=== PATIENT | male | born 2000 | race Hispanic/Latino ===

== ENCOUNTER 2024-06-08 05:27 | Inpatient (IN) | payer MEDICAID ==
[2024-06-08] VITALS (66 sets, daily range): BP systolic 92–125; BP diastolic 59–88; PULSE 68–104; RESP 5–32; TEMP 98.7–99.1; O2SAT 97–100
[~2024-06-08] VITALS: Ht 177.8 cm; Wt 99.3 kg
[2024-06-08] MEDS: LORazepam 2 MG/ML 1 ML VIAL IVP ONE (05:30)
--- NOTE | 2024-06-08 05:34 | NUR ---
INTUBATION, ET TUBE 8.0, 24 AT THE LIP, ETOMIDATE 20 GIVEN AT 05:32, SONU GIVEN AT 05:33, INTUBATION 05:34
[2024-06-08] MEDS: leveTIRACEtam 500 MG/5 ML SD VIAL IV SCH (06:00)
[2024-06-08] MEDS ORDERED: DEXTROSE 50%-WATER 25 GM/50 ML VIAL IV ONE (06:00)
[2024-06-08] MEDS: LACTATED RINGERS 1000ML 1,000 ML IV ONE (06:01)
[2024-06-08] MEDS: DEXTROSE 50%-WATER 50 ML DISP.SYRIN IV ONE (06:01)
[2024-06-08] MEDS: proPOFol 1000 MG/100 ML 100 ML IV ONE (06:14)
[2024-06-08] MEDS: FENTanyl 1000MCG+NS 100ML 100 ML IV ONE (06:15)
--- NOTE | 2024-06-08 06:15 | ERN ---
General Chief Complaint: Seizure Stated Complaint: SEIZURES Time Seen by MD: 05:38 History of Present Illness Initial Comments Mr. Salazar is a very pleasant 23-year-old male with a history of seizure disorder who comes actively seizing. Patient apparently has not been taking his Keppra according to his . Patient did have a seizure at home and was picked up by EMS. Patient was doing well and was postictal but has been responsive. Upon arrival he patient did have another seizure in which he was nonresponsive and did not recover from. Patient was emergently intubated. Patient was loaded with Keppra. Allergies: Coded Allergies: No Known Allergies (Unverified Allergy, Unknown, 06/08/24) Home Meds Reported Medications Levetiracetam (Levetiracetam) 500 Mg Tab.er.24h, 1 TAB PO BID for 30 Days, #60 TAB 0 Refills 06/08/24 Past Medical History Past Medical History: Seizure Past Surgical History: None ROS Dictation ROS is not able to be done given patient's altered mental status Physical Exam Physical Exam Dictation General: Unresponsive patient was foaming at the mouth unable to protect his airway, patient was not follow commands Head/Face: Normocephalic, atraumatic Eyes: PERRL, ENT: Gurgling secretions Neck: Trachea midline Cardiovascular: Tachycardic normal S1-S2 Respiratory: Diminished breath sounds bilaterally Abdomen: Nontender nondistended positive bowel sounds Skin: Warm, dry, normal turgor, no rash MS/Extremity: Pulses equal Neuro: Actively seizing Results Laboratory and Microbiology Lab and Micro Result GLO SANTO CC: Seizures, status epilepticus Comorbidities: seizure disorder, non-compliant with Keppra. I took over care of this patient at 7:00 a.m. I reviewed the CT scan of the head without contrast. Per my independent interpretation there are no brain bleeds or major abnormalities. Patient is currently intubated. He has stable vital signs. The chest x-ray per my independent interpretation shows no cardiomegaly, possibly some congestion in the right upper lobe. ET tube appears to be intact. G-tube in place. Patient is currently on propofol drip. He received fentanyl. You received D50 and lorazepam. He received 1 g of Keppra. Labs (interpreted by me): Patient has a leukocytosis [id number] with a left shift. Likely reactive. Rest of the CBC is unremarkable. Chemistry panel shows a bicarb of 12 otherwise unremarkable. Previous ED provider consulted neurology (Dr Austin). Consultation: ICU provider for consultation & Hospitalist (Dr Mendoza) for admisison. ED Course Intubation Intubation : Intubation Method: orotracheal Tube Size (cm): 8.0 Medications: Succinylcholine Breath Sounds after Intubation: equal Intubation Complications: no complications Post Intubation Xray: Yes Critical Care Note Critical Time: 60 minutes DX & DISP Disposition: Inpatient (ICU) Departure Impression: Primary Impression: Status epilepticus Critical Time: 30 minutes (Critical Care Procedure NoteAuthorized and Performed by: meTotal critical care time: Approximately 36 minutesDue to a high probability of clinically significant, life threatening deterioration, the patient required my highest level of preparedness to intervene emergently and I personally spent this critical care time directly and personally managing the patient. This critical care time included obtaining a history; examining the patient; pulse oximetry; ordering and review of studies; arranging urgent treatment with development of a management plan; evaluation of patient's response to treatment; frequent reassessment; and, discussions with other providers.This critical care time was performed to assess and manage the high probability of imminent, life-threatening deterioration that could result in multi-organ failure. It was exclusive of separately billable procedures and treating other patients and teaching time.Please see MDM section and the rest of the note for further information on patient assessment and treatment.) Condition: Critical Referrals: NONE (PCP) DALJIT MCDONNELL MD Jun 08, 2024 06:15 DIMAS SALES DO Jun 08, 2024 07:48
[2024-06-08] MEDS: proPOFol 1000 MG/100 ML IV PRN (06:16)
[2024-06-08] MEDS: FENTanyl 1000MCG+NS 100ML 100 ML IV SCH (06:17)
[2024-06-08] MEDS ORDERED: LEVE500T98 PO (06:22)
[2024-06-08 06:44] LABS: BASOPHILS # (AUTO) 0.11 K/uL (0.00-0.20); BASOPHILS % (AUTO) 0.3 % (0.0-5.0); CREATININE 1.4 mg/dL (0.5-1.3); EOSINOPHILS # (AUTO) 0.02 K/uL (0.00-0.70); EOSINOPHILS % (AUTO) 0.1 % (0.0-8.0); HEMATOCRIT 52.9 % (42-54); LYMPHOCYTES # (AUTO) 3.2 K/uL (1.0-4.8); LYMPHOCYTES % (AUTO) 8.2 % (21.0-51.0); MEAN CORPUSCULAR HEMOGLOBIN 31.8 pg (27.0-33.0); MEAN CORPUSCULAR HGB CONC 31.8 g/dL (32.0-36.0); MEAN CORPUSCULAR VOLUME 100.2 fL (79-99); MONOCYTES # (AUTO) 2.3 K/uL (0.1-1.0); NEUTROPHILS # (AUTO) 32.4 K/uL (1.8-7.7); NEUTROPHILS % (AUTO) 84.4 % (40.0-77.0); PLATELET COUNT (AUTO) 419 K/uL (130-400); POTASSIUM 3.8 mmol/L (3.5-5.1); RED BLOOD CELL COUNT(AUTO) 5.28 MIL/uL (4.50-6.20); RED CELL DISTRIBUTION WIDTH 11.4 % (11.0-15.5)
--- NOTE | 2024-06-08 07:02 | EKG ---
[facility] Test Date: 2024-06-08 Test Time: 05:48:14 Pat Name: DALJIT SANTO Department: ED Room: 208 Gender: M Hrbp: 1088 : 2000 Requested By: DALJIT MCDONNELL Order Number: [id number] Reading MD: Randal Reyes Measurements Intervals [place] Rate: 127 P: 78 WV: 157 QRS: 26 QRSD: 90 T: 92 QT: 291 QTc: 424 Interpretive Statements Sinus tachycardia Repol abnrm suggests ischemia, lateral leads Borderline ST elevation, anterior leads Compared to ECG 06/08/2024 05:45:12 ST (T wave) deviation now present Possible ischemia still present Electronically Signed On 06-08-2024 15:15:40 RAG SHREDDER by Randal Reyes Please click the below link to view image of tracing.
--- NOTE | 2024-06-08 07:02 | EKG ---
[facility] Test Date: 2024-06-08 Test Time: 05:45:12 Pat Name: DALJIT SANTO Department: ED Room: 208 Gender: M School Standards Coach: 1088 : 2000 Requested By: DALJIT MCDONNELL Order Number: [id number] Reading MD: Randal Reyes Measurements Intervals [place] Rate: 125 P: 74 HI: 148 QRS: 29 QRSD: 90 T: 76 QT: 288 QTc: 416 Interpretive Statements Sinus tachycardia Repol abnrm suggests ischemia, lateral leads No previous ECG available for comparison Electronically Signed On 06-08-2024 15:15:33 REAL TIME ANALYST by Randal Reyes Please click the below link to view image of tracing.
--- NOTE | 2024-06-08 07:09 | NUR ---
REPORT RECEIVED FROM ELY DAN
[2024-06-08] MEDS ORDERED: rocuRONium bROMide 10MG/1ML 5ML VL IV ONE (07:22)
[2024-06-08 07:55] LABS: WHITE BLOOD COUNT (AUTO) 38.4 K/uL (4.8-10.8)
--- NOTE | 2024-06-08 08:20 | NUR ---
DR GOMEZ CURRENTLY AT BEDSIDE W/PT.
--- NOTE | 2024-06-08 08:24 | HMCIMG ---
Exam: NONCONTRAST CT BRAIN REASON: Seizure . COMPARISON: None. TECHNIQUE: Images are obtained from vertex to the skull base. The exam was performed without IV contrast. FINDINGS: There is normal appearing brain parenchyma. There are no focal mass lesions. There is is no evidence of intracranial hemorrhage or acute stroke. Ventricles and sulci appear normal. Posterior fossa and brainstem structures are unremarkable. Paranasal sinuses and remaining extracranial soft tissues appear normal as well. IMPRESSION: 1. Normal noncontrast CT brain. CT was performed with one or more following dose reduction techniques: automated exposure control, adjustment of the mA and kv according to patient's size, or use of a iterative reconstruction technique.
[2024-06-08] MEDS ORDERED: AZITHROMYCIN 500MG+NS 250ML 250 ML IVPB SCH (08:30)
[2024-06-08] MEDS ORDERED: polyETHYLene GLYCol 3350 17 GM POWD.PACK PO PRN (08:30)
[2024-06-08] MEDS ORDERED: LACTULOSE 20 GM/30 ML UDCUP PO PRN (08:30)
[2024-06-08 08:37] LABS: BAND NEUTROPHILS % (MANUAL) 7 % (0-2); LYMPHOCYTES % (MANUAL) 4 % (22-44); MAN.DIFF COMMENT-IMPRESSION MANUAL DIFFERENTIAL; MONOCYTES % (MANUAL) 9 % (2-9); PLATELET MORPHOLOGY COMMENT SLIGHT INCREASED; REACTIVE LYMPHOCYTES 4 % (0-0); SEGMENTED NEUTROPHILS % 76 % (40-70); TOTAL CELLS COUNTED 100
--- NOTE | 2024-06-08 08:39 | NUR ---
CRITICAL CARE/PULMONARY CONSULT: LOAN GALANP CURRENTLY AT BEDSIDE.
[2024-06-08 08:45] LABS: ABG BASE EXCESS -8.6 mmol/L (-2.0-3.0); ABG HCO3 17.9 mmol/L (21.0-28.0); ABG OXYGEN SATURATION 99.7 % (94.0-98.0); ABG PCO2 40 mmHg (35-48); ABG PH 7.264 (7.350-7.450); CARBON MONOXIDE 0.8 % (0.5-1.5); DEVICE COMMENT RB; HHb 0.3; PO2, ARTERIAL BG 290.3 mmHg (83.0-108.0); VENT MODE, BG AC (ROOM AIR)
--- NOTE | 2024-06-08 08:45 | NUR ---
ABG RESULTS: PER [employer] SALES AND SERVICE MANAGER-METABOLIC ACIDOSIS. OXYGEN ON VENT TO BE REDUCED TO 75% FOR NOW AND NO OTHER CHANGES
--- NOTE | 2024-06-08 08:52 | HMCIMG ---
CHEST 1VW REASON: S/P INTUBATION COMPARISON: None. FINDINGS: There is a right upper lobe infiltrate consistent with pneumonia. Lungs are otherwise clear. Heart size is normal with no vascular congestion. There is an ET tube with tip in good position at midclavicular point, 4 cm above the kalie. There is an NG tube in the stomach. IMPRESSION: 1. Right upper lobe infiltrate consistent with pneumonia. 2. ET and NG tubes in good position.
--- NOTE | 2024-06-08 09:14 | CONS ---
[facility] CONSULTATION NOTE Date Patient Seen: Jun 08, 2024 Time of Visit: 09:04 Supervising Physician: Dr. Ventura Reason for Consultation: [facility] Primary Care Physician: Never seen a PCP Outpatient Specialists: NA Inpatient Consults: Dr. Ventura, PROBLEM LIST: Postictal Acute metabolic encephalopathy secondary to above Acute hypoxic respiratory failure Bilateral upper lobe opacity concerning for aspiration pneumonitis versus community acquired pneumonia Sepsis without septic shock Acute renal failure secondary to ATN from sepsis High anion gap metabolic acidosis Leukocytosis with left shift Hyperglycemia History of seizures, vaping, former cocaine abuse HPI: This is a 23-year-old male with past medical history of seizures, former cocaine abuse, current marijuana use, and vaping who came to the hospital with complaint of seizures. As patient is intubated, information is obtained from patient's in ED 9 plus chart review. According to the , patient had seizure that was started at 1 AM this morning. He then went back to sleep and he had two more episodes of seizures. After the last episode, he became somewhat confused. In ED patient had seizures and was intubated to save his airway. Pertinent findings include WBC of 38, neutrophils of 84%. Bicarb was 12 and gap was 24. Creatinine is 1.4 glucose 180. Some more laboratory studies were sent. Chest xray with bilateral upper lobe opacities. CT head pending. 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 Pertinent positives mentioned above. Otherwise negative. PHYSICAL EXAM: GENERAL:Intubated, sedated HEENT: EOMI, Sclera non icteric, moist mucosa NECK: Supple, no JVD, trachea midline LUNGS: Rales on upper lobes. No wheezing. HEART: Regular rate and rhythm. Normal S1 and S2, without murmurs ABD: Abdomen soft, nontender. Bowel sounds present EXT: No clubbing cyanosis or edema NEURO: Intubated and sedated Vital Signs (last 8hr) Date Time Temp Pulse Resp B/P (MAP) Pulse Ox O2 Delivery O2 Flow Rate FiO2 06/08/24 07:02 97 20 109/68 95 Ventilator+ 70 06/08/24 06:23 103 16 186/108 95 Ventilator+ 70 06/08/24 06:06 79 70 06/08/24 05:49 131 16 95 Ventilator+ 70 LABS: Hematology Labs: Test 06/08/24 05:35 Range/Units White Blood Count 38.4 *H 4.8-10.8 K/uL Red Blood Count 5.28 4.50-6.20 MIL/uL Hemoglobin 16.8 14.0-18.0 g/dL Hematocrit 52.9 42-54 % Mean Corpuscular Volume 100.2 H 79-99 fL Mean Corpuscular Hemoglobin 31.8 27.0-33.0 pg Mean Corpuscular Hemoglobin Concent 31.8 L 32.0-36.0 g/dL Red Cell Distribution Width 11.4 11.0-15.5 % Platelet Count 419 H 130-400 K/uL Mean Platelet Volume 10.0 7.5-10.5 fL Immature Granulocyte % (Auto) 1.0 0-1 % Neutrophils (%) (Auto) 84.4 H 40.0-77.0 % Lymphocytes (%) (Auto) 8.2 L 21.0-51.0 % Monocytes (%) (Auto) 6.0 3.0-13.0 % Eosinophils (%) (Auto) 0.1 0.0-8.0 % Basophils (%) (Auto) 0.3 0.0-5.0 % Neutrophils # (Auto) 32.4 H 1.8-7.7 K/uL Lymphocytes # (Auto) 3.2 1.0-4.8 K/uL Monocytes # (Auto) 2.3 H 0.1-1.0 K/uL Eosinophils # (Auto) 0.02 0.00-0.70 K/uL Basophils # (Auto) 0.11 0.00-0.20 K/uL Absolute Immature Granulocyte (auto 0.40 0-1 K/uL Segmented Neutrophils % 76 H 40-70 % Band Neutrophils % 7 H 0-2 % Lymphocytes % (Manual) 4 L 22-44 % Monocytes % (Manual) 9 2-9 % Nucleated Red Blood Cells 0.0 0.0-0.19 % Differential Comment MANUAL DIFFERENTIAL Reactive Lymphocytes 4 H 0-0 % White Cell Morphology Comment Platelet Morphology Comment SLIGHT INCREASED Red Blood Cell Morphology MACROCYTIC 1+ Chemistry Labs: Test 06/08/24 05:35 Range/Units Sodium Level 141 136-145 mmol/L Potassium Level 3.8 3.5-5.1 mmol/L Chloride Level 105 101-111 mmol/L Carbon Dioxide Level 12 L 21-32 mmol/L Blood Urea Nitrogen 12 7-18 mg/dL Creatinine 1.4 H 0.5-1.3 mg/dL Glomerular Filtration Rate Calc 72 >90 mL/min Random Glucose 180 H 70-105 mg/dL Total Calcium 9.2 8.5-10.1 mg/dL DIAGNOSTICS / RADIOLOGY RESULTS: [ ] PLAN NEURO: Minimize central acting medications as possible. Fall Precautions. Well lighted room through the day and minimize interruptions through the night to prevent acute delirium. Goal of RASS 0 to -2 as tolerated PULMONARY: Supplemental 02 as needed Titrate Fio2 to keep Spo2 > or = 90% DuoNebs and CPT as needed IS hourly while awake for pulmonary hygiene Out of bed to chair as tolerated VAP Bundle Vent/BIPAP Settings: 18/450/8/100% CARDIOVASCULAR: Follow hemodynamics. Titrate vasopressor to keep MAP >65 or systolic blood pressure >95mmHg DRIPS: Fentanyl Propofol LINES: PIV GI & NUTRITION: Continue nutritional support Aspirations precautions Prokinetic agents and laxatives as needed KIDNEYS & ELECTROLYTES: Strict monitoring of intake and output Daily weights Avoid nephrotoxic agents Monitor electrolytes and replace as needed Goal urine output of 30mL/hr or 0.5mL/kg/hr Give 30cc /kg IVF ENDOCRINE: Maintain blood glucose between 100-180 at all times. Insulin sliding scale for blood glucose management Check ketone INFECTIOUS DISEASE: Trend temperature. Jackson-culture if febrile. Micro: UA Blood Antibiotics: Rocephin 06/08 Azithromycin 06/08 HEMATOLOGY & COAGULATION: Monitor H&H. Keep Hgb > 7 Transfuse 1 unit of PRBC for Hgb < 7 Transfuse 1 pack of platelets of platelets < 20, 000 Watch for any signs and symptoms of bleeding SKIN: Pressure ulcer prevention per facility protocol Rehab: PT/OT Prophylaxis: GI: Pepcdi DVT: Lovenox Code Status: Full Resuscitation Disposition: ICU Other: Total patient care time exceeds 35 minutes excluding all procedures. Case was discussed and seen with my supervising physician. The above plan was formulated and agreed upon. BABAR [facility] Jun 08, 2024 09:14
[2024-06-08 09:19] LABS: AMPHET/METH SCREEN,URINE NEGATIVE (NEGATIVE); BARBITURATE SCREEN, URINE NEGATIVE (NEGATIVE); BENZODIAZEPINES SCREEN,URINE NEGATIVE (NEGATIVE); CANNABINOID SCREEN,URINE POSITIVE (NEGATIVE); COCAINE SCREEN,URINE NEGATIVE (NEGATIVE); OPIATE SCREEN,URINE NEGATIVE (NEGATIVE); PHENCYCLIDINE SCREEN,URINE NEGATIVE (NEGATIVE)
[2024-06-08 09:39] LABS: APPEARANCE,URINE CLOUDY (CLEAR); BACTERIA,URINE RARE /HPF (None Seen); BILIRUBIN,URINE NEGATIVE (NEGATIVE); COLOR,URINE LIGHT-YELLOW (YELLOW); GLUCOSE, URINE (UA) >=1000 mg/dL (NEGATIVE); KETONES,URINE 5 mg/dL (NEGATIVE); LEUKOCYTE ESTERASE ,URINE NEGATIVE Leu/uL (NEGATIVE); MUCUS,URINE RARE LPF (None Seen); NITRATE,URINE NEGATIVE (NEGATIVE); OCCULT BLOOD,URINE MODERATE (NEGATIVE); PH,URINE 5.5 (5.0-8.0); PROTEIN,URINE 100 mg/dL (NEGATIVE); SQUAMOUS EPITHELIAL CELL,UR RARE /HPF (0-2); URIC ACID CRYSTALS,URINE RARE /LPF (None Seen); UROBILINOGEN,URINE 0.2 mg/dL (0.2-1.0)
[2024-06-08] MEDS: LACTATED RINGERS 1000ML 2,190 ML IV ONE (09:58)
[2024-06-08 10:01] LABS: SARS-CoV-2, RNA, NAAT NEGATIVE SARS CoV-2 (NEGATIVE)
--- NOTE | 2024-06-08 10:04 | HP ---
[facility]ISTORY [facility] PHYSICAL Date of Service: Jun 08, 2024 Time of Service: 09:54 HISTORY OF PRESENT ILLNESS: 23-year-old male with past medical history of seizures, former cocaine abuse, current marijuana use, and vaping who came to the hospital with complaint of seizures. According to the , patient had 1st seizure in 2020 and next was in 2022, after that he had seizures for every 3 months and was noncompliant with the medications and says he feels medications aggravate seizures. Seizures began again at 1 AM this morning. He then went back to sleep and he had two more episodes of seizures. After the last episode, he became somewhat confused. In ED patient had seizures and was intubated to protect his airway, he is currently on propofol and fentanyl. He was given1 g of Keppra and lorazepam. Pertinent findings include WBC of 38, neutrophils of 84%. Bicarb was 12 and gap was 24. Creatinine is 1.4 glucose 180. Some more laboratory studies were sent. Chest x ray with right upper lobe opacity. CT head with no acute intracranial abnormalities. Toxicology screen positive for marijuana. 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 NEUROLOGICAL: Cranial nerves II-XII grossly intact. Motor is 5/5 in bilateral upper and lower extremities proximal to distal. No sensory deficits. HEENT: Face is symmetric. Pupils are equal and reactive. Extraocular movements are intact. NECK: Supple. No JVD. No thyromegaly. No submental, submandibular, pre- /postauricular, occipital or supraclavicular lymphadenopathy. CHEST: Normal chest expansion. No Telemetry. LUNGS: Absence of any rales, rhonchi or any wheezing. CARDIOVASCULAR: Regular. S1 and S2 normal. No appreciable rubs, murmurs or gallops. ABDOMEN: Soft, nontender, and nondistended. There is no rebound, voluntary guarding, or rigidity. : Deferred. No Dykes. EXTREMITIES: Non-edematous and not cyanotic. No clubbing. Good capillary refill. SKIN: No skin breakdown. Vital Sign (Last 24 Hours) 06/08/24 07:02 Pulse 97 Resp 20 B/P (MAP) 109/68 Pulse Ox 95 O2 Delivery Ventilator+ FiO2 70 LABS: Laboratory: Test 06/08/24 08:57 06/08/24 08:43 06/08/24 05:35 Range/Units Urine Color LIGHT-YELLOW YELLOW Urine Appearance CLOUDY H CLEAR Urine pH 5.5 5.0-8.0 Urine Specific [place] 1.025 1.001-1.031 Urine Protein 100 H NEGATIVE mg/dL Urine Glucose (UA) >=1000 H NEGATIVE mg/dL Urine Ketones 5 H NEGATIVE mg/dL Urine Occult Blood MODERATE H NEGATIVE Urine Nitrate NEGATIVE NEGATIVE Urine Bilirubin NEGATIVE NEGATIVE mg/dL Urine Urobilinogen 0.2 0.2-1.0 mg/dL Urine Leukocyte Esterase NEGATIVE NEGATIVE Jarad/uL Urine RBC 2-5 H 0-1 /HPF Urine WBC 2-5 H 0-1 /HPF Urine Squamous Epithelial Cells RARE 0-2 /HPF Urine Uric Acid Crystals RARE None Seen /LPF Urine Amorphous Crystals (Auto) FEW None Seen /LPF Urine Bacteria RARE None Seen /HPF Whole Blood Ketones Quantitative 0.2 0.0-0.6 mmol/L Lactic Acid Level 3.9 H 0.8-2.5 mmol/L Total Creatine Kinase 303 H 21-232 U/L Procalcitonin 0.43 0.05-0.5 ng/mL Urine Opiates Screen NEGATIVE NEGATIVE Urine Barbiturates Screen NEGATIVE NEGATIVE Urine Phencyclidine Screen NEGATIVE NEGATIVE Urine Amphetamines Screen NEGATIVE NEGATIVE Urine Benzodiazepines Screen NEGATIVE NEGATIVE Urine Cocaine Screen NEGATIVE NEGATIVE Urine Marijuana (THC) Screen POSITIVE H NEGATIVE Blood Gas Specimen Type Arterial Arterial Blood pH 7.264 L 7.350-7.450 Arterial Blood Partial Pressure CO2 40 35-48 mmHg Arterial Blood Partial Pressure O2 290.3 H 83.0-108.0 mmHg Arterial Blood HCO3 17.9 L 21.0-28.0 mmol/L Arterial Blood Oxygen Saturation 99.7 H 94.0-98.0 % Arterial Blood Base Excess -8.6 L -2.0-3.0 mmol/L Hemoglobin (Blood Gas) 16.7 13.5-17.5 g/dL Sodium (Blood Gas) 138 136-145 MMOL/L Bedside Potassium (Blood Gas) 5.3 H 3.4-4.5 MMOL/L Bedside Chloride (Blood Gas) 107 98-107 MMOL/L Bedside Glucose (Blood Gas) 92 65-95 MG/DL Bedside Ionized Calcium (Blood Gas) 1.21 1.15-1.33 MMOL/L Bedside Lactic Acid (Blood Gas) 1.99 H 0.36-0.75 MMOL/L Blood Gas Temperature 37.0 35.5-37.0 CELSIUS Blood Gas Respiration Rate 18.0 min. Blood Gas Vent Mode AC ROOM AIR FiO2 100.0 % Blood Gas Tidal Volume 450 ml Blood Gas PEEP 8 cm H2O Blood Gas Specimen Comment RB White Blood Count 38.4 *H 4.8-10.8 K/uL Red Blood Count 5.28 4.50-6.20 MIL/uL Hemoglobin 16.8 14.0-18.0 g/dL Hematocrit 52.9 42-54 % Mean Corpuscular Volume 100.2 H 79-99 fL Mean Corpuscular Hemoglobin 31.8 27.0-33.0 pg Mean Corpuscular Hemoglobin Concent 31.8 L 32.0-36.0 g/dL Red Cell Distribution Width 11.4 11.0-15.5 % Platelet Count 419 H 130-400 K/uL Mean Platelet Volume 10.0 7.5-10.5 fL Immature Granulocyte % (Auto) 1.0 0-1 % Neutrophils (%) (Auto) 84.4 H 40.0-77.0 % Lymphocytes (%) (Auto) 8.2 L 21.0-51.0 % Monocytes (%) (Auto) 6.0 3.0-13.0 % Eosinophils (%) (Auto) 0.1 0.0-8.0 % Basophils (%) (Auto) 0.3 0.0-5.0 % Neutrophils # (Auto) 32.4 H 1.8-7.7 K/uL Lymphocytes # (Auto) 3.2 1.0-4.8 K/uL Monocytes # (Auto) 2.3 H 0.1-1.0 K/uL Eosinophils # (Auto) 0.02 0.00-0.70 K/uL Basophils # (Auto) 0.11 0.00-0.20 K/uL Absolute Immature Granulocyte (auto 0.40 0-1 K/uL Segmented Neutrophils % 76 H 40-70 % Band Neutrophils % 7 H 0-2 % Lymphocytes % (Manual) 4 L 22-44 % Monocytes % (Manual) 9 2-9 % Nucleated Red Blood Cells 0.0 0.0-0.19 % Differential Comment MANUAL DIFFERENTIAL Reactive Lymphocytes 4 H 0-0 % White Cell Morphology Comment Platelet Morphology Comment SLIGHT INCREASED Red Blood Cell Morphology MACROCYTIC 1+ Sodium Level 141 136-145 mmol/L Potassium Level 3.8 3.5-5.1 mmol/L Chloride Level 105 101-111 mmol/L Carbon Dioxide Level 12 L 21-32 mmol/L Blood Urea Nitrogen 12 7-18 mg/dL Creatinine 1.4 H 0.5-1.3 mg/dL Glomerular Filtration Rate Calc 72 >90 mL/min Random Glucose 180 H 70-105 mg/dL Total Calcium 9.2 8.5-10.1 mg/dL Current Medications Medications (Trade) Dose Ordered Sig/Samantha Route PRN Reason Start Time Stop Time Status Last Admin Dose Admin Acetaminophen (TYLenol 325MG TAB) 650 mg Q6H PRN PO TEMPERATURE GREATER THAN 101.5 06/08/24 08:30 07/08/24 08:29 Albuterol (DUOneb) 1 udvial [id number] IH 06/08/24 12:00 07/08/24 11:59 Azithromycin 250 ml @ 250 mls/hr Q24H IVPB 06/08/24 08:30 06/08/24 08:42 DC Ceftriaxone Sodium (Rocephin 2gm Inj) 2 gm Q24H IVPB 06/08/24 17:00 06/08/24 08:42 DC Enoxaparin Sodium (Lovenox) 40 mg DAILY SQ 06/08/24 17:00 07/08/24 16:59 Famotidine (Pepcid 20mg Vial) 20 mg BID IV 06/08/24 09:00 07/08/24 08:59 Fentanyl Citrate 100 ml @ 2.5 mls/hr PROTOCOL IV 06/08/24 06:30 06/15/24 06:29 06/08/24 06:17 2.5 MLS/HR Insulin Human Regular (humuLIN R 100 UNIT/ML 3ML) INSULIN SLIDING SCAL... Q6H6 SQ 06/08/24 12:00 07/08/24 11:59 Lactulose (Constulose 20gm/ 30ml Udcup) 20 gm BID PRN PO CONSTIPATION 06/08/24 08:30 07/08/24 08:29 Levetiracetam (kepPRA 500 MG/5 ML SD VIAL) 1,000 mg ONCE IV 06/08/24 06:00 06/08/24 08:35 DC 06/08/24 06:00 1,000 MG Levetiracetam 500 mg/Sodium Chloride 100 ml @ 400 mls/hr BID IV 06/08/24 21:00 07/08/24 20:59 Methylprednisolone Sodium Succinate (Solu-medROL 40MG) 40 mg Q8H IVP 06/08/24 09:30 07/08/24 09:29 Ondansetron HCl (zoFRAN 4MG INJ) 4 mg Q6H PRN IV NAUSEA/VOMITING 06/08/24 08:30 07/08/24 08:29 Polyethylene Glycol (MIRalax 3350 17 GM POWD.PACK) 17 gm DAILY PRN PO CONSTIPATION 06/08/24 08:30 07/08/24 08:29 Propofol (DIPRivan 1000MG/ 100ML) 1,000 mg PROTOCOL PRN IV SEDATION 06/08/24 06:30 07/08/24 06:29 06/08/24 08:40 1,000 MG DIAGNOSTICS / RADIOLOGY: [ ] ASSESSMENT: Status epilepticus s/p intubation (06/08/24) Acute hypoxic respiratory failure intubated Right upper lobe opacity concerning for aspiration pneumonitis versus community acquired pneumonia Acute kidney injury Rhabdomyolysis secondary to seizure Anion gap metabolic acidosis, GAP 24 Lactic acidosis, lactic acid 3.9 Leukocytosis with left shift Hyperglycemia History of seizures, vaping, former cocaine abuse PLAN: Status epilepticus s/p intubation (06/08/24) -Continue Keppra 500 mL/hour b.i.d. -Continue mechanical ventilation, wean as able -Seizure precautions -PRN ativan for acute seizure -neuro consult noted pending on recommendations Right upper lobe opacity concerning for aspiration pneumonitis versus community acquired pneumonia High anion gap metabolic acidosis Leukocytosis with left shift Possibly secondary to aspiration during the seizure event -Continue Zosyn -Follow up on cultures -Follow up on procalcitonin Acute renal failure secondary to ATN from sepsis Rhabdomyolysis - Continue fluid resuscitation - LR @ 140 cc/hr - Repeat renal function lab tomorrow - Monitor urine output Hyperglycemia - Start sliding scale insulin - Start hypoglycemia protocol - A1C ordered, will follow up Vaping Cocaine use disorder Marijuana use disorder - Patient will be counselled on importance of abstinence after extubation - Will explain the increased risk of seizures with continued substance abuse Disposition: Pending extubation, improvement in clinical status, neurology recommendations ADVANCED CARE PLANNING 1. Which of the following were discussed? Hospice Care - Yes Therapeutic options - Yes Advance Directives - Yes-patient does not have any advanced directives in place at this time. Other discussions -patient wishes to remain a full code at this time. 2. Discussed with who? Patient 3. Voluntary nature of this service was explained to the patient? Yes 4. Amount of time spent - 16 minutes__ 5. Reviewed by Physician? (if this service was performed by NPP) Yes ONEYDA DALEY MD Jun 08, 2024 10:04 SIDDHARHTA GOMEZ MD Jun 08, 2024 12:55
[2024-06-08 10:05] LABS: INFLUENZA TYPE A Negative For Type A (NEGATIVE); INFLUENZA TYPE B Negative For Type B (NEGATIVE)
--- NOTE | 2024-06-08 10:14 | NUR ---
BED ASSIGNMENT: BED 208 JUST ASSIGNED BY SCOURING MACHINE TENDER Isidra AL RN
[2024-06-08] MEDS: FAMOTIDINE 20MG VIAL IV SCH (10:37)
[2024-06-08] MEDS: Solu-medROL 40MG VIAL IVP SCH (10:37)
[2024-06-08] MEDS: SODIUM BICARB 50MEQ 50ML VIAL IV ONE (10:37)
[2024-06-08] MEDS: ZOSYN 3.375GM +NS 50ML IV ONE (10:42)
[2024-06-08] MEDS: INSULIN humuLIN R 100 UNIT/ML 3ML SQ SCH (12:00)
--- NOTE | 2024-06-08 12:25 | NUR ---
DR. FLOREZ NOTIFIED OF CONSULT
[2024-06-08] MEDS: IpraTROPium/alBUTERol SULFATE 3 ML SOLUTION IH SCH (12:29)
[2024-06-08] MEDS ORDERED: PHARMACY COMMUNICATION MISC SCH (12:30)
[2024-06-08] MEDS: MIDAZOLAM 100MG-0.9% NS 100ML 100 ML IV SCH (12:32)
[2024-06-08] MEDS ORDERED: leveTIRACEtam 500 MG/5 ML SD VIAL IV SCH (16:00)
[2024-06-08] MEDS: leveTIRACEtam 500 MG/5 ML SD V 1,000 MG in 0.9%NACL 100ML 100 ML IV ONE ×2 (16:06→16:17)
--- NOTE | 2024-06-08 16:19 | CONS ---
CONSULTATION NOTE Date of Service: Jun 08, 2024 Reason for Consultation: Evaluation of seizures. Requesting Physician: Hospitalist HISTORY OF PRESENT ILLNESS: This is a very nice 23 yo RH gentleman with a PMH remarkable for epilepsy and MJ abuse who was admitted for an evaluation and management of status epilepticus. The patient is at bedside, she states that in 2020 the patient had GTC sz while asleep. He was not taken to the ED and then he had one more seizure in 2022. There he was dg with epilepsy and was given LVT 500mg po bid. He continue having seizures despite being on LVT and for this reason he stopped taking the medication about 6 months ago. The pt had 3 seizures last night and was taken to the ED. Dr. Myrick the ED physician evaluated the patient and was given LVT 1000mg loading dose. The pt was intubated for airway protection. No seizures since then. MRI and EEG pending. REVIEW OF SYSTEMS CONSTITUTIONAL: Denies fever, chills, or fatigue. HEAD/FACE: No signs of trauma. EENT: Denies eye pain, blurred vision, double vision, or light sensitivity. RESPIRATORY: Denies shortness of breath, cough, wheezing CARDIOVASCULAR: Denies chest pain, palpitation, syncope GASTROINTESTINAL/ABDOMINAL: Denies abdominal pain, constipation, diarrhea, nausea or vomiting GENITOURINARY: Denies dysuria or hematuria. MUSCULOSKELETAL: Denies joint pain, tenderness, or trauma. INTEGUMENTARY: Denies rash or itchiness NEUROLOGICAL/PSYCH: Multiple seizures change in mental status PAST MEDICAL HISTORY: Epilepsy PAST SURGICAL HISTORY: Noncontributory PAST SOCIAL HISTORY: Marijuana abuse FAMILY HISTORY: No family history of stroke or seizures Coded Allergies: No Known Allergies (Unverified Allergy, Unknown, 06/08/24) PHYSICAL EXAM Mental status: Comatose unresponsive not following commands. Sedated. Cranial nerves: CN II: Pupils are reactive but sluggish CN III, IV, : VO present but sluggish CN V: unresposive to noxious stimulation CN VII: Face is symmetric with normal eye closure and smile. CN VII: Unable to evaluate CN IX, X: Positive gag CN XI: Unable to evaluate CN XII: Tongue is midline with normal movements and no atrophy. Motor: Patient is not withdrawing to noxious stimulation in any of the extremities Reflexes: Reflexes are 0 and symmetric at the biceps, triceps, knees, and ankles. Plantar responses none obtainable Sensory: Not withdrawing to any noxious stimulation Coordination: Unable to evaluate the patient has a change in mental status Gait/Stance: Unable to evaluate the patient has a change in mental status Vital Sign (Last 24 Hours) 06/08/24 06/08/24 14:57 15:00 Pulse 82 Resp 14 B/P (MAP) 108/66 (80) Pulse Ox 98 FiO2 65 LABS: Laboratory: Test 06/08/24 12:55 06/08/24 12:53 06/08/24 08:57 06/08/24 08:43 Range/Units Lactic Acid Level 2.9 H 0.8-2.5 mmol/L Whole Blood Glucose 119 H 70-110 MG/DL Urine Color LIGHT-YELLOW YELLOW Urine Appearance CLOUDY H CLEAR Urine pH 5.5 5.0-8.0 Urine Specific [place] 1.025 1.001-1.031 Urine Protein 100 H NEGATIVE mg/dL Urine Glucose (UA) >=1000 H NEGATIVE mg/dL Urine Ketones 5 H NEGATIVE mg/dL Urine Occult Blood MODERATE H NEGATIVE Urine Nitrate NEGATIVE NEGATIVE Urine Bilirubin NEGATIVE NEGATIVE mg/dL Urine Urobilinogen 0.2 0.2-1.0 mg/dL Urine Leukocyte Esterase NEGATIVE NEGATIVE Jarad/uL Urine RBC 2-5 H 0-1 /HPF Urine WBC 2-5 H 0-1 /HPF Urine Squamous Epithelial Cells RARE 0-2 /HPF Urine Uric Acid Crystals RARE None Seen /LPF Urine Amorphous Crystals (Auto) FEW None Seen /LPF Urine Bacteria RARE None Seen /HPF Whole Blood Ketones Quantitative 0.2 0.0-0.6 mmol/L Total Creatine Kinase 303 H 21-232 U/L Procalcitonin 0.43 0.05-0.5 ng/mL Urine Opiates Screen NEGATIVE NEGATIVE Urine Barbiturates Screen NEGATIVE NEGATIVE Urine Phencyclidine Screen NEGATIVE NEGATIVE Urine Amphetamines Screen NEGATIVE NEGATIVE Urine Benzodiazepines Screen NEGATIVE NEGATIVE Urine Cocaine Screen NEGATIVE NEGATIVE Urine Marijuana (THC) Screen POSITIVE H NEGATIVE Blood Gas Specimen Type Arterial Arterial Blood pH 7.264 L 7.350-7.450 Arterial Blood Partial Pressure CO2 40 35-48 mmHg Arterial Blood Partial Pressure O2 290.3 H 83.0-108.0 mmHg Arterial Blood HCO3 17.9 L 21.0-28.0 mmol/L Arterial Blood Oxygen Saturation 99.7 H 94.0-98.0 % Arterial Blood Base Excess -8.6 L -2.0-3.0 mmol/L Hemoglobin (Blood Gas) 16.7 13.5-17.5 g/dL Sodium (Blood Gas) 138 136-145 MMOL/L Bedside Potassium (Blood Gas) 5.3 H 3.4-4.5 MMOL/L Bedside Chloride (Blood Gas) 107 98-107 MMOL/L Bedside Glucose (Blood Gas) 92 65-95 MG/DL Bedside Ionized Calcium (Blood Gas) 1.21 1.15-1.33 MMOL/L Bedside Lactic Acid (Blood Gas) 1.99 H 0.36-0.75 MMOL/L Blood Gas Temperature 37.0 35.5-37.0 CELSIUS Blood Gas Respiration Rate 18.0 min. Blood Gas Vent Mode AC ROOM AIR FiO2 100.0 % Blood Gas Tidal Volume 450 ml Blood Gas PEEP 8 cm H2O Blood Gas Specimen Comment RB Test 06/08/24 08:28 06/08/24 05:35 Range/Units Influenza Type A Antigen Negative For Type A NEGATIVE Influenza Type B Antigen Negative For Type B NEGATIVE SARS-CoV-2, RNA, NAAT NEGATIVE SARS CoV-2 NEGATIVE White Blood Count 38.4 *H 4.8-10.8 K/uL Red Blood Count 5.28 4.50-6.20 MIL/uL Hemoglobin 16.8 14.0-18.0 g/dL Hematocrit 52.9 42-54 % Mean Corpuscular Volume 100.2 H 79-99 fL Mean Corpuscular Hemoglobin 31.8 27.0-33.0 pg Mean Corpuscular Hemoglobin Concent 31.8 L 32.0-36.0 g/dL Red Cell Distribution Width 11.4 11.0-15.5 % Platelet Count 419 H 130-400 K/uL Mean Platelet Volume 10.0 7.5-10.5 fL Immature Granulocyte % (Auto) 1.0 0-1 % Neutrophils (%) (Auto) 84.4 H 40.0-77.0 % Lymphocytes (%) (Auto) 8.2 L 21.0-51.0 % Monocytes (%) (Auto) 6.0 3.0-13.0 % Eosinophils (%) (Auto) 0.1 0.0-8.0 % Basophils (%) (Auto) 0.3 0.0-5.0 % Neutrophils # (Auto) 32.4 H 1.8-7.7 K/uL Lymphocytes # (Auto) 3.2 1.0-4.8 K/uL Monocytes # (Auto) 2.3 H 0.1-1.0 K/uL Eosinophils # (Auto) 0.02 0.00-0.70 K/uL Basophils # (Auto) 0.11 0.00-0.20 K/uL Absolute Immature Granulocyte (auto 0.40 0-1 K/uL Segmented Neutrophils % 76 H 40-70 % Band Neutrophils % 7 H 0-2 % Lymphocytes % (Manual) 4 L 22-44 % Monocytes % (Manual) 9 2-9 % Nucleated Red Blood Cells 0.0 0.0-0.19 % Differential Comment MANUAL DIFFERENTIAL Reactive Lymphocytes 4 H 0-0 % White Cell Morphology Comment Platelet Morphology Comment SLIGHT INCREASED Red Blood Cell Morphology MACROCYTIC 1+ Sodium Level 141 136-145 mmol/L Potassium Level 3.8 3.5-5.1 mmol/L Chloride Level 105 101-111 mmol/L Carbon Dioxide Level 12 L 21-32 mmol/L Blood Urea Nitrogen 12 7-18 mg/dL Creatinine 1.4 H 0.5-1.3 mg/dL Glomerular Filtration Rate Calc 72 >90 mL/min Random Glucose 180 H 70-105 mg/dL Total Calcium 9.2 8.5-10.1 mg/dL DIAGNOSTICS / RADIOLOGY: [ ] ASSESSMENT / PLAN: 1).- Generalized tonic-clonic seizure with status epilepticus - now stable intubated sedated. No seizures since admission. Give a loading dose of levetiracetam 2 g IV x1 now and increase the levetiracetam to a 1000 mg p.o. b.i.d.. Seizure precautions while hospitalized and as an outpatient. Request an MRI of the brain with and without contrast and electroencephalogram. Seizure precautions. No new neurological deficits or complaints since admission. No seizures observed. Thank you for your consultation. AMARJIT MILLER MD Jun 08, 2024 16:19
--- NOTE | 2024-06-08 16:20 | NUR ---
NEUROLOGIST CONSULT DR. FLOREZ IN UNIT FOR CONSULT, RECEIVED ORDERS FOR KEPPRA 2,000MG IV PIGGYBAG NOW AND INCREASE KEPPRA DOSE TO 1,000MG IV BID STARTING TONIGHT. ORDERS ENTERED. KEPPRA 2,000MG IV DOSE ADMINISTERED.
[2024-06-08] MEDS: ENOXAPARIN SODIUM 40 MG/0.4 ML SYRINGE SQ SCH (16:37)
[2024-06-08] MEDS ORDERED: CEFTRIAXONE 2GM VIAL IVPB SCH (17:00)
[2024-06-08] MEDS ORDERED: leveTIRACEtam 500 MG/5 ML SD V 500 MG in 0.9%NACL 100ML 100 ML IV SCH (21:00)
[2024-06-08] MEDS: ZOSYN 3.375GM +NS 50ML IV SCH (21:38)
[2024-06-08] MEDS: leveTIRACEtam 500 MG/5 ML SD V 1,000 MG in 0.9%NACL 100ML 100 ML IV SCH (21:38)
[2024-06-09] VITALS (96 sets, daily range): BP systolic 93–162; BP diastolic 41–87; PULSE 41–75; RESP 13–21; TEMP 98.1–99; O2SAT 98–100
[2024-06-09 04:08] LABS: BASOPHILS # (AUTO) 0.01 K/uL (0.00-0.20); BASOPHILS % (AUTO) 0.1 % (0.0-5.0); HEMATOCRIT 41.6 % (42-54); IMMATURE GRANULOCYTE ABSOLUTE 0.07 K/uL (0-1); LYMPHOCYTES # (AUTO) 0.6 K/uL (1.0-4.8); MEAN CORPUSCULAR HEMOGLOBIN 31.7 pg (27.0-33.0); MEAN CORPUSCULAR HGB CONC 32.7 g/dL (32.0-36.0); MONOCYTES # (AUTO) 0.7 K/uL (0.1-1.0); MONOCYTES % (AUTO) 4.6 % (3.0-13.0); NEUTROPHILS # (AUTO) 13.3 K/uL (1.8-7.7); NEUTROPHILS % (AUTO) 90.8 % (40.0-77.0); PLATELET COUNT (AUTO) 253 K/uL (130-400); RED BLOOD CELL COUNT(AUTO) 4.29 MIL/uL (4.50-6.20); RED CELL DISTRIBUTION WIDTH 11.2 % (11.0-15.5); WHITE BLOOD COUNT (AUTO) 14.6 K/uL (4.8-10.8)
[2024-06-09 04:23] LABS: ABG BASE EXCESS -6.2 mmol/L (-2.0-3.0); ABG HCO3 20.3 mmol/L (21.0-28.0); ABG OXYGEN SATURATION 98.6 % (94.0-98.0); ABG PCO2 44 mmHg (35-48); ABG PH 7.285 (7.350-7.450); CARBON MONOXIDE 0.9 % (0.5-1.5); DEVICE COMMENT RT RAD; HHb 1.4; PO2, ARTERIAL BG 136.3 mmHg (83.0-108.0); VENT MODE, BG AC (ROOM AIR)
[2024-06-09 04:25] LABS: ALBUMIN 3.1 g/dL (3.5-5.0); BILIRUBIN,TOTAL 0.7 mg/dL (0.2-1.0); CREATININE 3.8 mg/dL (0.5-1.3); POTASSIUM 5.2 mmol/L (3.5-5.1); TOTAL PROTEIN, SERUM 6.2 g/dL (6.0-8.3)
[2024-06-09 04:36] LABS: HEMOGLOBIN A1C 4.8 % (4.0-6.0)
[2024-06-09] MEDS ORDERED: LORazepam 2 MG/ML 1 ML VIAL IVP PRN (05:30)
--- NOTE | 2024-06-09 05:35 | NUR ---
BRADYCARDIA NOTIFIED [facility] EMILI HICKS PATIENT BRADYCARDIA 40s HEART RATE. PER [facility] MONITOR PATIENT AND WEAN SEDATION NECESSARY.
--- NOTE | 2024-06-09 07:15 | NUR ---
ASSESSMENT: PT FOUND IN SUPINE POSITION W/HOB SLIGHLTY ELEVATED. PT IS CURRENTLY INTUBATED AND ON SEDATION (PROPOFOL AND FENTANYL DRIPS). PT ALSO ON LIWS VIA NGT. SIGNIFICANT OTHER SITTING CURRENTLY AT BEDSIDE W/PT AND PT ON BEDSIDE MONITORNING EQUIPMENT. CARDIO/PULMONARY: PT CURRENTLY INTUBATED W/A ETT 8.0 AND 24CM AT THE LIP TO THE RIGHT SIDE OF THE MOUTH. VENT SETTINGS TV 450/FIO2 100%/RATE 18/PEEP 8. PT HAS CRACKLES TO ALL LUNG KWAN TO AUSCULTATION DURING EXHALATION. CAP REFILL LESS THAN 3 SECONDS ON CURRENT VENT SETTINGS. PT IS BREATING ABOVE THE RR OF THE VENT ANYWHERE FROM TOTAL 16-24 BPM. PT ON CARDIAC MONITORING DEVICE. 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 S1S2 AUSCULATED APICALLY. PT HAS 2+PULSES TO RADIAL/DORSALIS PEDAL AND POSTERIOR TIBIALIS SITES BILATERALLY. SKIN IS DRY TO TOUCH. NO CYANOSIS TO NAIL BEDS ON HANDS. PT CURRENTLY HAS BILATERAL 18G TO L/R DISTAL FOREARM W/PROPOFOL AT 25MCG/KG/MIN AND FENTANYL 50MCG/HR . NEURO: PT CURRENTLY SEDATED. PUPILS ARE 4MM OU BRISK. HE DOES HAVE SOME MOVEMENT WHEN HE IS PALPATED OR HAS VERBAL STIMULATION. UNABLE TO COMPETE FULL NEURO ASSESSMENT AT THIS TIME. GI/: PT HAS A NGT 16FR TO R NARE TO LIWS AT THIS TIME. PLACEMENT CONFIRMED W/AIR BOLUS. PT ABD SOFT TO PALPATION AND +BS X 4 QUAD. UNABLE COMPLETE GI ASSESSMENT. PT HAS A 16FR F/C TO URETHRA. CLEAR YELLOW URINE IN DRAINAGE BAG. NO MEATAL TEARING. MUSCULOSKELETAL/INTEGUMENTARY: PT HAS SOME MOVEMENT OF EXTREMITIES WHEN STIMULATED(PT SEDATED) AND NO NOTED SKIN BREAKDOWN AT THIS TIME.
[2024-06-09] MEDS: 0.9%NACL 1000ML 1,000 ML IV SCH (10:09)
--- NOTE | 2024-06-09 10:12 | PN ---
[facility] PROGRESS NOTE Date of Service: Jun 09, 2024 Time of Service: 10:07 SUBJECTIVE: 06/09 patient seen at bedside, no acute events overnight. He remains intubated and sedated. He is currently on an FiO2 of 40% with a tidal volume of 450 and a PEEP of 8, saturating at 100%. We will decrease PEEP down to 5 and continue to monitor. According to ventilator settings he may be a good candidate for extubation, we will defer to critical Care for extubation. Patient did have a sedation vacation however he was unmanageable and had to be sedated again, we will repeat tomorrow in an attempt to try to extubate. His creatinine increased from 1.4 up to 3.8, he has not been running any start him on normal saline at 180 cc/hour and continue to monitor urine output. He is likely a little bit dehydrated due to being NPO for prolonged period of time. He has been assessed by Neurology who adjusted his Keppra to a 1000 mg twice daily and they recommended MRI. He will likely get the MRI once he has been extubated. EEG is also pending, we will follow up. Blood cultures are no growth to date, urine culture is still pending. Urine tox positive for marijuana no other substances. REVIEW OF SYSTEMS 12 point ROS negative unless noted in HPI PHYSICAL EXAM GENERAL APPEARANCE: The patient is awake, alert, and oriented, in no acute cardiopulmonary distress. NEUROLOGICAL: Cranial nerves II-XII grossly intact. Motor is 5/5 in bilateral upper and lower extremities proximal to distal. No sensory deficits. HEENT: Face is symmetric. Pupils are equal and reactive. Extraocular movements are intact. NECK: Supple. No JVD. No thyromegaly. No submental, submandibular, pre- /postauricular, occipital or supraclavicular lymphadenopathy. CHEST: Normal chest expansion. No Telemetry. LUNGS: Absence of any rales, rhonchi or any wheezing. CARDIOVASCULAR: Regular. S1 and S2 normal. No appreciable rubs, murmurs or gallops. ABDOMEN: Soft, nontender, and nondistended. There is no rebound, voluntary guarding, or rigidity. : Deferred. No Dykes. EXTREMITIES: Non-edematous and not cyanotic. No clubbing. Good capillary refill. SKIN: No skin breakdown. Vital Signs (last 8hr) Date Time Temp Pulse Resp B/P (MAP) Pulse Ox O2 Delivery O2 Flow Rate FiO2 06/09/24 09:03 61 40 06/09/24 06:23 53 18 06/09/24 06:22 51 40 06/09/24 06:18 47 16 136/79 (98) 100 06/09/24 06:04 51 15 120/55 (76) 100 06/09/24 05:48 49 21 131/58 (82) 100 06/09/24 05:46 47 18 131/76 (94) 100 06/09/24 05:22 47 15 100 06/09/24 05:19 46 17 110/61 (77) 100 06/09/24 05:04 50 16 102/47 (65) 100 06/09/24 04:49 41 16 107/50 (69) 99 06/09/24 04:32 55 15 94/52 (66) 99 06/09/24 04:25 40 06/09/24 04:02 98.2 58 15 96/41 (59) 100 06/09/24 04:00 40 06/09/24 04:00 99 Ventilator+ 45 06/09/24 03:47 58 16 96/56 (69) 100 06/09/24 03:32 58 15 95/45 (62) 100 06/09/24 03:17 58 16 94/53 (67) 100 06/09/24 03:02 60 16 96/42 (60) 100 06/09/24 02:58 65 45 06/09/24 02:47 60 16 94/49 (64) 100 06/09/24 02:32 64 16 95/57 (70) 100 06/09/24 02:17 61 15 95/60 (72) 100 LABS: Laboratory: Test 06/09/24 05:40 06/09/24 04:21 06/09/24 03:58 06/08/24 12:55 Range/Units Whole Blood Glucose 143 H 70-110 MG/DL Blood Gas Specimen Type Arterial Arterial Blood pH 7.285 L 7.350-7.450 Arterial Blood Partial Pressure CO2 44 35-48 mmHg Arterial Blood Partial Pressure O2 136.3 H 83.0-108.0 mmHg Arterial Blood HCO3 20.3 L 21.0-28.0 mmol/L Arterial Blood Oxygen Saturation 98.6 H 94.0-98.0 % Arterial Blood Base Excess -6.2 L -2.0-3.0 mmol/L Hemoglobin (Blood Gas) 14.3 13.5-17.5 g/dL Sodium (Blood Gas) 138 136-145 MMOL/L Bedside Potassium (Blood Gas) 5.0 H 3.4-4.5 MMOL/L Bedside Chloride (Blood Gas) 106 98-107 MMOL/L Bedside Glucose (Blood Gas) 131 H 65-95 MG/DL Bedside Ionized Calcium (Blood Gas) 1.13 L 1.15-1.33 MMOL/L Bedside Lactic Acid (Blood Gas) 1.59 H 0.36-0.75 MMOL/L Blood Gas Temperature 37.0 35.5-37.0 CELSIUS Blood Gas Respiration Rate 16.0 min. Blood Gas Vent Mode AC ROOM AIR FiO2 45.0 % Blood Gas Tidal Volume 450 ml Blood Gas PEEP 8 cm H2O Blood Gas Specimen Comment RT RAD White Blood Count 14.6 #H 4.8-10.8 K/uL Red Blood Count 4.29 L 4.50-6.20 MIL/uL Hemoglobin 13.6 L 14.0-18.0 g/dL Hematocrit 41.6 #L 42-54 % Mean Corpuscular Volume 97.0 79-99 fL Mean Corpuscular Hemoglobin 31.7 27.0-33.0 pg Mean Corpuscular Hemoglobin Concent 32.7 32.0-36.0 g/dL Red Cell Distribution Width 11.2 11.0-15.5 % Platelet Count 253 # 130-400 K/uL Mean Platelet Volume 9.3 7.5-10.5 fL Immature Granulocyte % (Auto) 0.5 0-1 % Neutrophils (%) (Auto) 90.8 H 40.0-77.0 % Lymphocytes (%) (Auto) 4.0 L 21.0-51.0 % Monocytes (%) (Auto) 4.6 3.0-13.0 % Eosinophils (%) (Auto) 0.0 0.0-8.0 % Basophils (%) (Auto) 0.1 0.0-5.0 % Neutrophils # (Auto) 13.3 H 1.8-7.7 K/uL Lymphocytes # (Auto) 0.6 L 1.0-4.8 K/uL Monocytes # (Auto) 0.7 0.1-1.0 K/uL Eosinophils # (Auto) 0.00 0.00-0.70 K/uL Basophils # (Auto) 0.01 0.00-0.20 K/uL Absolute Immature Granulocyte (auto 0.07 0-1 K/uL Nucleated Red Blood Cells 0.0 0.0-0.19 % Sodium Level 136 136-145 mmol/L Potassium Level 5.2 H 3.5-5.1 mmol/L Chloride Level 104 101-111 mmol/L Carbon Dioxide Level 25 21-32 mmol/L Blood Urea Nitrogen 32 #H 7-18 mg/dL Creatinine 3.8 H 0.5-1.3 mg/dL Glomerular Filtration Rate Calc 22 >90 mL/min Random Glucose 134 H 70-105 mg/dL Hemoglobin A1c 4.8 4.0-6.0 % Estimated Average Glucose (eAG) 91 70-126 mg/dL Total Calcium 8.1 L 8.5-10.1 mg/dL Total Bilirubin 0.7 0.2-1.0 mg/dL Aspartate Amino Transf (AST/SGOT) 34 10-37 U/L Alanine Aminotransferase (ALT/SGPT) 19 12-78 U/L Alkaline Phosphatase 67 50-136 U/L Total Protein 6.2 6.0-8.3 g/dL Albumin 3.1 L 3.5-5.0 g/dL Lactic Acid Level 2.9 H 0.8-2.5 mmol/L Test 06/08/24 08:57 06/08/24 08:28 06/08/24 05:35 Range/Units Urine Color LIGHT-YELLOW YELLOW Urine Appearance CLOUDY H CLEAR Urine pH 5.5 5.0-8.0 Urine Specific [place] 1.025 1.001-1.031 Urine Protein 100 H NEGATIVE mg/dL Urine Glucose (UA) >=1000 H NEGATIVE mg/dL Urine Ketones 5 H NEGATIVE mg/dL Urine Occult Blood MODERATE H NEGATIVE Urine Nitrate NEGATIVE NEGATIVE Urine Bilirubin NEGATIVE NEGATIVE mg/dL Urine Urobilinogen 0.2 0.2-1.0 mg/dL Urine Leukocyte Esterase NEGATIVE NEGATIVE Jarad/uL Urine RBC 2-5 H 0-1 /HPF Urine WBC 2-5 H 0-1 /HPF Urine Squamous Epithelial Cells RARE 0-2 /HPF Urine Uric Acid Crystals RARE None Seen /LPF Urine Amorphous Crystals (Auto) FEW None Seen /LPF Urine Bacteria RARE None Seen /HPF Whole Blood Ketones Quantitative 0.2 0.0-0.6 mmol/L Total Creatine Kinase 303 H 21-232 U/L Procalcitonin 0.43 0.05-0.5 ng/mL Urine Opiates Screen NEGATIVE NEGATIVE Urine Barbiturates Screen NEGATIVE NEGATIVE Urine Phencyclidine Screen NEGATIVE NEGATIVE Urine Amphetamines Screen NEGATIVE NEGATIVE Urine Benzodiazepines Screen NEGATIVE NEGATIVE Urine Cocaine Screen NEGATIVE NEGATIVE Urine Marijuana (THC) Screen POSITIVE H NEGATIVE Influenza Type A Antigen Negative For Type A NEGATIVE Influenza Type B Antigen Negative For Type B NEGATIVE SARS-CoV-2, RNA, NAAT NEGATIVE SARS CoV-2 NEGATIVE Segmented Neutrophils % 76 H 40-70 % Band Neutrophils % 7 H 0-2 % Lymphocytes % (Manual) 4 L 22-44 % Monocytes % (Manual) 9 2-9 % Differential Comment MANUAL DIFFERENTIAL Reactive Lymphocytes 4 H 0-0 % White Cell Morphology Comment Platelet Morphology Comment SLIGHT INCREASED Red Blood Cell Morphology MACROCYTIC 1+ Current Medications Medications (Trade) Dose Ordered Sig/Samantha Route PRN Reason Start Time Stop Time Status Last Admin Dose Admin Acetaminophen (TYLenol 325MG TAB) 650 mg Q6H PRN PO TEMPERATURE GREATER THAN 101.5 06/08/24 08:30 07/08/24 08:29 Albuterol (DUOneb) 1 udvial [id number] IH 06/08/24 12:00 07/08/24 11:59 06/09/24 06:21 1 UDVIAL Azithromycin 250 ml @ 250 mls/hr Q24H IVPB 06/08/24 08:30 06/08/24 08:42 DC Ceftriaxone Sodium (Rocephin 2gm Inj) 2 gm Q24H IVPB 06/08/24 17:00 06/08/24 08:42 DC Enoxaparin Sodium (Lovenox) 40 mg DAILY SQ 06/08/24 17:00 07/08/24 16:59 06/09/24 08:09 40 MG Famotidine (Pepcid 20mg Vial) 20 mg BID IV 06/08/24 09:00 06/09/24 09:57 DC 06/09/24 08:10 20 MG Famotidine (Pepcid 20mg Vial) 20 mg Q48H IV 06/11/24 10:00 07/08/24 08:59 Fentanyl Citrate 100 ml @ 2.5 mls/hr PROTOCOL IV 06/08/24 06:30 06/15/24 06:29 06/09/24 09:48 2.5 MLS/HR Insulin Human Regular (humuLIN R 100 UNIT/ML 3ML) INSULIN SLIDING SCAL... Q6H6 SQ 06/08/24 12:00 07/08/24 11:59 Lactulose (Constulose 20gm/ 30ml Udcup) 20 gm BID PRN PO CONSTIPATION 06/08/24 08:30 07/08/24 08:29 Levetiracetam (kepPRA 500 MG/5 ML SD VIAL) 1,000 mg ONCE IV 06/08/24 06:00 06/08/24 08:35 DC 06/08/24 06:00 1,000 MG Levetiracetam (kepPRA 500 MG/5 ML SD VIAL) 2,000 mg ONCE IV 06/08/24 16:00 06/08/24 15:52 DC Levetiracetam 1000 mg/Sodium Chloride 110 ml @ 400 mls/hr BID IV 06/08/24 21:00 07/08/24 20:59 06/09/24 08:11 400 MLS/HR Levetiracetam 500 mg/Sodium Chloride 100 ml @ 400 mls/hr BID IV 06/08/24 21:00 06/08/24 15:48 DC Lorazepam (AtiVAN) 2 mg Q2H PRN IVP SEIZURE 06/09/24 05:30 06/16/24 05:29 Methylprednisolone Sodium Succinate (Solu-medROL 40MG) 40 mg Q8H IVP 06/08/24 09:30 07/08/24 09:29 06/09/24 08:10 40 MG Midazolam HCl 100 ml @ 0 mls/hr PROTOCOL IV 06/08/24 12:30 07/08/24 12:29 06/08/24 22:12 6 MLS/HR Ondansetron HCl (zoFRAN 4MG INJ) 4 mg Q6H PRN IV NAUSEA/VOMITING 06/08/24 08:30 07/08/24 08:29 Pharmacy Profile Note (Pharmacy Communication) 1 each ONCE MISC 06/08/24 12:30 06/08/24 12:19 DC Piperacillin Sod/ Tazobactam Sod (Zosyn 3.375gm+NS 50ml) 3.375 gm Q12H IV 06/08/24 22:30 06/18/24 22:29 06/08/24 21:38 3.375 GM Polyethylene Glycol (MIRalax 3350 17 GM POWD.PACK) 17 gm DAILY PRN PO CONSTIPATION 06/08/24 08:30 07/08/24 08:29 Propofol (DIPRivan 1000MG/ 100ML) 1,000 mg PROTOCOL PRN IV SEDATION 06/08/24 06:30 07/08/24 06:29 06/09/24 08:10 1,000 MG Sodium Chloride 1,000 ml @ 180 mls/hr Q5H34M IV 06/09/24 10:00 07/09/24 09:59 DIAGNOSTICS / RADIOLOGY: [ ] ASSESSMENT: Status epilepticus s/p intubation (06/08/24) Acute hypoxic respiratory failure intubated Right upper lobe opacity concerning for aspiration pneumonitis versus community acquired pneumonia Pre-renal Acute kidney injury, worsening, POA Rhabdomyolysis secondary to seizure Anion gap metabolic acidosis, resolved Lactic acidosis, lactic acid 3.9, resolved Leukocytosis with left shift, improving Hyperglycemia History of seizures, vaping, former cocaine abuse PLAN: Status epilepticus s/p intubation (06/08/24) -Continue Keppra 1000 mL/hour b.i.d. -Continue mechanical ventilation, wean as able -Seizure precautions -PRN ativan for acute seizure -MRI brain w/wo contrast pending, will follow up -EEG pending, will follow up -neuro consult noted pending on recommendations Right upper lobe opacity concerning for aspiration pneumonitis versus community acquired pneumonia High anion gap metabolic acidosis Leukocytosis with left shift Possibly secondary to aspiration during the seizure event -Vent management per critical care, extubate when able. Vt 450, FiO2 40%, PEEP 5 -Continue Zosyn -Follow up on cultures -Follow up on procalcitonin Acute renal failure secondary to ATN from sepsis Rhabdomyolysis - Continue fluid resuscitation - NS @ 180 cc/hr - Repeat renal function lab tomorrow - Monitor urine output Hyperglycemia - Continue sliding scale insulin - Continue hypoglycemia protocol Vaping Cocaine use disorder Marijuana use disorder - Patient will be counselled on importance of abstinence after extubation - Will explain the increased risk of seizures with continued substance abuse Disposition: Pending extubation, improvement in clinical status, neurology recommendations Greater than 35 minutes ICU time spent in care of this patient SIDDHARTHA GOMEZ MD Jun 09, 2024 10:12
--- NOTE | 2024-06-09 10:15 | HMCIMG ---
CHEST 1VW REASON: Hypoxia, intubated COMPARISON: 06/08/2024 FINDINGS: Right upper lobe infiltrate persists, there is now patchy infiltrate in the right lower lobe as well. Left lung appears clear. Heart size is normal. ET and NG tubes remain in place. IMPRESSION: 1. Increasing infiltrate in the right lung. 2. ET and NG tubes in good position.
--- NOTE | 2024-06-09 11:05 | PN ---
[facility] PROGRESS NOTE Date Patient Seen: Jun 09, 2024 Time of Visit: 10:58 Supervising Physician: Dr. Ventura Primary Care Physician: Never seen a PCP Outpatient Specialists: [facility] Inpatient Consults: Dr. Ventura, PROBLEM LIST: Postictal Acute metabolic encephalopathy secondary to above Acute hypoxic respiratory failure Intubated in ED on 06/08 given lethargy to save airway Bilateral upper lobe opacity concerning for aspiration pneumonitis versus community acquired pneumonia Sepsis without septic shock Acute renal failure secondary to ATN from sepsis High anion gap metabolic acidosis- resolved Leukocytosis with left shift Hyperglycemia History of seizures, vaping, former cocaine abuse INTERVAL HISTORY: 06/09 patient remains intubated on mechanical ventilator with ACVC 16/450/8/45%. His ABG this morning with the pH 7.28 pCO2 44 PO2 of 136 bicarb of 20, O2 sat is 98%. Base excess-6.2. His lactic acid is down to 1.5. His potassium is 5.2 bicarb is 25 up from 12. Creatinine though went up to 3.8 from 1.4. We will give IVF NS bolus this morning and continue with IV maintenance. Repeat BMP levels in the afternoon. we can send sputum culture. Chest x-ray this morning is with manifestation of opacity bilaterally. Continue with Zosyn and start patient on doxycycline. MRSA is negative. Flu and COVID are negative. Otherwise no event overnight. Continue with the anti epileptic drug of choice with Keppra, neurology is following. EEG pending. Continue to wean down sedation as tolerated, now on versed, propofol, and fentanyl. may not be c andidate for SBT REVIEW OF SYSTEMS: 12 point ROS reviewed with patient. Pertinent positives mentioned above. Otherwise negative. PHYSICAL EXAM: GENERAL:Intubated, sedated HEENT: EOMI, Sclera non icteric, moist mucosa NECK: Supple, no JVD, trachea midline LUNGS: Rales on upper lobes. No wheezing. HEART: Regular rate and rhythm. Normal S1 and S2, without murmurs ABD: Abdomen soft, nontender. Bowel sounds present EXT: No clubbing cyanosis or edema NEURO: Intubated and sedated Vital Signs (last 8hr) Date Time Temp Pulse Resp B/P (MAP) Pulse Ox O2 Delivery O2 Flow Rate FiO2 06/09/24 09:03 61 40 06/09/24 06:23 53 18 06/09/24 06:22 51 40 06/09/24 06:18 47 16 136/79 (98) 100 06/09/24 06:04 51 15 120/55 (76) 100 06/09/24 05:48 49 21 131/58 (82) 100 06/09/24 05:46 47 18 131/76 (94) 100 06/09/24 05:22 47 15 100 06/09/24 05:19 46 17 110/61 (77) 100 06/09/24 05:04 50 16 102/47 (65) 100 06/09/24 04:49 41 16 107/50 (69) 99 06/09/24 04:32 55 15 94/52 (66) 99 06/09/24 04:25 40 06/09/24 04:02 98.2 58 15 96/41 (59) 100 06/09/24 04:00 40 06/09/24 04:00 99 Ventilator+ 45 06/09/24 03:47 58 16 96/56 (69) 100 06/09/24 03:32 58 15 95/45 (62) 100 06/09/24 03:17 58 16 94/53 (67) 100 06/09/24 03:02 60 16 96/42 (60) 100 LABS: Hematology Labs: Test 06/09/24 03:58 06/08/24 05:35 Range/Units White Blood Count 14.6 #H 4.8-10.8 K/uL Red Blood Count 4.29 L 4.50-6.20 MIL/uL Hemoglobin 13.6 L 14.0-18.0 g/dL Hematocrit 41.6 #L 42-54 % Mean Corpuscular Volume 97.0 79-99 fL Mean Corpuscular Hemoglobin 31.7 27.0-33.0 pg Mean Corpuscular Hemoglobin Concent 32.7 32.0-36.0 g/dL Red Cell Distribution Width 11.2 11.0-15.5 % Platelet Count 253 # 130-400 K/uL Mean Platelet Volume 9.3 7.5-10.5 fL Immature Granulocyte % (Auto) 0.5 0-1 % Neutrophils (%) (Auto) 90.8 H 40.0-77.0 % Lymphocytes (%) (Auto) 4.0 L 21.0-51.0 % Monocytes (%) (Auto) 4.6 3.0-13.0 % Eosinophils (%) (Auto) 0.0 0.0-8.0 % Basophils (%) (Auto) 0.1 0.0-5.0 % Neutrophils # (Auto) 13.3 H 1.8-7.7 K/uL Lymphocytes # (Auto) 0.6 L 1.0-4.8 K/uL Monocytes # (Auto) 0.7 0.1-1.0 K/uL Eosinophils # (Auto) 0.00 0.00-0.70 K/uL Basophils # (Auto) 0.01 0.00-0.20 K/uL Absolute Immature Granulocyte (auto 0.07 0-1 K/uL Nucleated Red Blood Cells 0.0 0.0-0.19 % Segmented Neutrophils % 76 H 40-70 % Band Neutrophils % 7 H 0-2 % Lymphocytes % (Manual) 4 L 22-44 % Monocytes % (Manual) 9 2-9 % Differential Comment MANUAL DIFFERENTIAL Reactive Lymphocytes 4 H 0-0 % White Cell Morphology Comment Platelet Morphology Comment SLIGHT INCREASED Red Blood Cell Morphology MACROCYTIC 1+ Chemistry Labs: Test 06/09/24 05:40 06/09/24 03:58 06/08/24 12:55 06/08/24 08:57 Range/Units Whole Blood Glucose 143 H 70-110 MG/DL Sodium Level 136 136-145 mmol/L Potassium Level 5.2 H 3.5-5.1 mmol/L Chloride Level 104 101-111 mmol/L Carbon Dioxide Level 25 21-32 mmol/L Blood Urea Nitrogen 32 #H 7-18 mg/dL Creatinine 3.8 H 0.5-1.3 mg/dL Glomerular Filtration Rate Calc 22 >90 mL/min Random Glucose 134 H 70-105 mg/dL Hemoglobin A1c 4.8 4.0-6.0 % Estimated Average Glucose (eAG) 91 70-126 mg/dL Total Calcium 8.1 L 8.5-10.1 mg/dL Total Bilirubin 0.7 0.2-1.0 mg/dL Aspartate Amino Transf (AST/SGOT) 34 10-37 U/L Alanine Aminotransferase (ALT/SGPT) 19 12-78 U/L Alkaline Phosphatase 67 50-136 U/L Total Protein 6.2 6.0-8.3 g/dL Albumin 3.1 L 3.5-5.0 g/dL Lactic Acid Level 2.9 H 0.8-2.5 mmol/L Whole Blood Ketones Quantitative 0.2 0.0-0.6 mmol/L Total Creatine Kinase 303 H 21-232 U/L Procalcitonin 0.43 0.05-0.5 ng/mL DIAGNOSTICS / RADIOLOGY RESULTS: [ ] PLAN NEURO: Minimize central acting medications as possible. Fall Precautions. Well lighted room through the day and minimize interruptions through the night to prevent acute delirium. Goal of RASS 0 to -2 as tolerated PULMONARY: Supplemental 02 as needed Titrate Fio2 to keep Spo2 > or = 90% DuoNebs and CPT as needed IS hourly while awake for pulmonary hygiene Out of bed to chair as tolerated VAP Bundle Vent/BIPAP Settings: 16/450/8/45%. Decrease PEEP to 5. CARDIOVASCULAR: Follow hemodynamics. Titrate vasopressor to keep MAP >65 or systolic blood pressure >95mmHg DRIPS: Fentanyl Propofol Versed NS LINES: PIV GI & NUTRITION: Continue nutritional support Aspirations precautions Prokinetic agents and laxatives as needed KIDNEYS & ELECTROLYTES: Strict monitoring of intake and output Daily weights Avoid nephrotoxic agents Monitor electrolytes and replace as needed Goal urine output of 30mL/hr or 0.5mL/kg/hr Give 30cc /kg IVF ENDOCRINE: Maintain blood glucose between 100-180 at all times. Insulin sliding scale for blood glucose management Check ketone- negative INFECTIOUS DISEASE: Trend temperature. Jackson-culture if febrile. Micro: UA Blood Antibiotics: Rocephin 06/08- changed Azithromycin 06/08-06/08 Doxycycline 06/09 Zosyn 06/09 HEMATOLOGY & COAGULATION: Monitor H&H. Keep Hgb > 7 Transfuse 1 unit of PRBC for Hgb < 7 Transfuse 1 pack of platelets of platelets < 20, 000 Watch for any signs and symptoms of bleeding SKIN: Pressure ulcer prevention per facility protocol Rehab: PT/OT Prophylaxis: GI: Pepcdi DVT: Lovenox Code Status: Full Resuscitation Disposition: ICU Other: Total patient care time exceeds 35 minutes excluding all procedures. Case was discussed and seen with my supervising physician. The above plan was formulated and agreed upon. BABAR HASSAN PATIENT CONSUMER MARKETER Jun 09, 2024 11:04
[2024-06-09] MEDS: DOXYCYCLINE 100MG+NS 250ML 250 ML IV SCH (11:23)
[2024-06-09] MEDS: 0.9%NACL 1000ML 1,461 ML IV ONE (11:24)
[2024-06-09 13:11] LABS: CREATININE 4.4 mg/dL (0.5-1.3); POTASSIUM 4.8 mmol/L (3.5-5.1)
--- NOTE | 2024-06-09 13:14 | NUR ---
ATTEMPTED TO BRING PATIENT DOWN FOR THE MRI. PATIENT IS CURRENTLY ON MULTIPLE DRIPS AND VENTED. EXAM ON HOLD TILL PATIENT CAN BE WEENED OFF THE DRIPS.
--- NOTE | 2024-06-09 14:45 | NUR ---
NEPHROLOGY CONSULT CONSULT CALLED IN TO OFFICE, SPOKE WITH MODESTO.
--- NOTE | 2024-06-09 14:54 | NUR ---
NEPHROLOGY CONSULT ALBERTO SUPERVISOR FUSING ROOM AT BEDSIDE, UPDATED ON PT STATUS.
[2024-06-09] MEDS: ceFEPime HCL 2 GM VIAL IVPB SCH (15:00)
[2024-06-09] MEDS: diazePAM 5 MG TAB PO SCH (15:02)
--- NOTE | 2024-06-09 15:10 | CONS ---
NEPHROLOGY CONSULTATION NOTE Date/Time Patient Seen: Jun 09, 2024 [id number] Reason for Consultation: HISTORY OF PRESENT ILLNESS: This is a 23-year-old male with a past medical history of seizures, former cocaine abuse, current marijuana use, and vaping. He presented to the emergency room with complaints of seizures. According to family patient has been noncompliant with seizure medications. UDS was positive for marijuana. Chest x-ray on admission showed right upper lobe infiltrate consistent with pneumonia. He has been started on Solu-Medrol for pneumonia. CT of head was normal. Zosyn has been discontinued and he has been started on cefepime. Blood cultures has been negative times 24 hours MRSA swab was negative. Leukocytosis is improving He was noted to have elevated BUN/creatinine and hyperkalemia. We have been consulted for renal failure. Renal function continues to worsen Electrolytes are stable. He continues on gentle IV hydration. Continues with good urine output He was seen in the ICU, he continues to be intubated and sedated Family at the bedside Condition is critical and guarded REVIEW OF SYSTEMS: Difficult to obtain given status of the patient who remains intubated mechanically ventilated PAST MEDICAL HISTORY: Seizures PAST SURGICAL HISTORY: Left-sided chest tumor resection PAST SOCIAL HISTORY: Positive for cocaine abuse, marijuana use and vaping, tobacco smoking FAMILY HISTORY: Noncontributory PHYSICAL EXAM: General: acutely ill, sedated, intubated, and mechanically ventilated HEENT: head is atraumatic, pupils equal and reactive, ET tube in place Neck: supple, no masses, no lymphadenopathy, no thyromegaly, no JVD Lungs: decreased breath sounds bilaterally, symmetrical chest movement Cardio: regular rate, S1 and S2 normal, no rub or gallop Abdomen: soft, non tender, no distension, no organomegaly Extremities: trace edema bilateral lower extremities, no cyanosis or clubbing Skin: no rashes or suspicious lesions Neuro: sedated MEDICATIONS: [ ] Current Medications Medications (Trade) Dose Ordered Sig/Samantha Route PRN Reason Start Time Stop Time Status Last Admin Dose Admin Acetaminophen (TYLenol 325MG TAB) 650 mg Q6H PRN PO TEMPERATURE GREATER THAN 101.5 06/08/24 08:30 07/08/24 08:29 Albuterol (DUOneb) 1 udvial [id number] IH 06/08/24 12:00 07/08/24 11:59 06/09/24 11:13 1 UDVIAL Azithromycin 250 ml @ 250 mls/hr Q24H IVPB 06/08/24 08:30 06/08/24 08:42 DC Cefepime HCl (MAXipime 2 gm vial) 2 gm Q24H IVPB 06/09/24 14:30 06/19/24 14:29 Ceftriaxone Sodium (Rocephin 2gm Inj) 2 gm Q24H IVPB 06/08/24 17:00 06/08/24 08:42 DC Dexmedetomidine/ Sodium Chloride (PRECEdex 400MCG/ 100ML-NS) 400 mcg PROTOCOL IV 06/09/24 14:30 07/09/24 14:29 Diazepam (VALium 5 mg TAB) 10 mg Q6H PO 06/09/24 14:30 07/09/24 14:29 Doxycycline Hyclate 250 ml @ 125 mls/hr Q12H IV 06/09/24 11:00 06/16/24 10:59 06/09/24 11:23 125 MLS/HR Enoxaparin Sodium (Lovenox) 40 mg DAILY SQ 06/08/24 17:00 07/08/24 16:59 06/09/24 08:09 40 MG Famotidine (Pepcid 20mg Vial) 20 mg BID IV 06/08/24 09:00 06/09/24 09:57 DC 06/09/24 08:10 20 MG Famotidine (Pepcid 20mg Vial) 20 mg Q48H IV 06/11/24 10:00 07/08/24 08:59 Fentanyl Citrate 100 ml @ 2.5 mls/hr PROTOCOL IV 06/08/24 06:30 06/15/24 06:29 06/09/24 09:48 2.5 MLS/HR Insulin Human Regular (humuLIN R 100 UNIT/ML 3ML) INSULIN SLIDING SCAL... Q6H6 SQ 06/08/24 12:00 07/08/24 11:59 Lactulose (Constulose 20gm/ 30ml Udcup) 20 gm BID PRN PO CONSTIPATION 06/08/24 08:30 07/08/24 08:29 Levetiracetam (kepPRA 500 MG/5 ML SD VIAL) 1,000 mg ONCE IV 06/08/24 06:00 06/08/24 08:35 DC 06/08/24 06:00 1,000 MG Levetiracetam (kepPRA 500 MG/5 ML SD VIAL) 2,000 mg ONCE IV 06/08/24 16:00 06/08/24 15:52 DC Levetiracetam 1000 mg/Sodium Chloride 110 ml @ 400 mls/hr BID IV 06/08/24 21:00 07/08/24 20:59 06/09/24 08:11 400 MLS/HR Levetiracetam 500 mg/Sodium Chloride 100 ml @ 400 mls/hr BID IV 06/08/24 21:00 06/08/24 15:48 DC Lorazepam (AtiVAN) 2 mg Q2H PRN IVP SEIZURE 06/09/24 05:30 06/16/24 05:29 Methylprednisolone Sodium Succinate (Solu-medROL 40MG) 40 mg Q12H IVP 06/09/24 21:30 07/08/24 09:29 Methylprednisolone Sodium Succinate (Solu-medROL 40MG) 40 mg Q8H IVP 06/08/24 09:30 06/09/24 10:56 DC 06/09/24 08:10 40 MG Metronidazole/ Sodium Chloride 100 ml @ 100 mls/hr Q8H6 IVPB 06/09/24 22:00 06/16/24 21:59 Midazolam HCl 100 ml @ 0 mls/hr PROTOCOL IV 06/08/24 12:30 07/08/24 12:29 06/09/24 13:11 6 MLS/HR Ondansetron HCl (zoFRAN 4MG INJ) 4 mg Q6H PRN IV NAUSEA/VOMITING 06/08/24 08:30 07/08/24 08:29 Pharmacy Profile Note (Pharmacy Communication) 1 each ONCE MISC 06/08/24 12:30 06/08/24 12:19 DC Piperacillin Sod/ Tazobactam Sod (Zosyn 3.375gm+NS 50ml) 3.375 gm Q12H IV 06/08/24 22:30 06/09/24 14:27 DC 06/09/24 10:13 3.375 GM Polyethylene Glycol (MIRalax 3350 17 GM POWD.PACK) 17 gm DAILY PRN PO CONSTIPATION 06/08/24 08:30 07/08/24 08:29 Propofol (DIPRivan 1000MG/ 100ML) 1,000 mg PROTOCOL PRN IV SEDATION 06/08/24 06:30 07/08/24 06:29 06/09/24 13:10 1,000 MG Sodium Chloride 1,000 ml @ 180 mls/hr Q5H34M IV 06/09/24 10:00 07/09/24 09:59 06/09/24 10:09 180 MLS/HR Vital Signs (last 8hr) Date Time Temp Pulse Resp B/P (MAP) Pulse Ox O2 Delivery O2 Flow Rate FiO2 06/09/24 14:38 54 40 06/09/24 12:00 99.0 06/09/24 11:46 61 40 06/09/24 11:13 57 18 06/09/24 10:30 40 06/09/24 09:03 61 40 06/09/24 08:00 98.6 06/09/24 08:00 99 Ventilator+ 40 DIAGNOSTICS / RADIOLOGY: REASON: Hypoxia, intubated ORDERING PHYSICIAN: BABAR HASSAN CNP PROCEDURE: CXR1VW - CHEST 1VW CHEST 1VW REASON: Hypoxia, intubated COMPARISON: 06/08/2024 FINDINGS: Right upper lobe infiltrate persists, there is now patchy infiltrate in the right lower lobe as well. Left lung appears clear. Heart size is normal. ET and NG tubes remain in place. IMPRESSION: 1. Increasing infiltrate in the right lung. 2. ET and NG tubes in good position. DICTATED BY: DEMETRIUS ALICEA MD DATE: 06/09/24 1012 REASON: Seizure ORDERING PHYSICIAN: DALJIT MCDONNELL MD PROCEDURE: HEAD WO - CT HEAD/BRAIN W/O CONTRAST Exam: NONCONTRAST CT BRAIN REASON: Seizure . COMPARISON: None. TECHNIQUE: Images are obtained from vertex to the skull base. The exam was performed without IV contrast. FINDINGS: There is normal appearing brain parenchyma. There are no focal mass lesions. There is is no evidence of intracranial hemorrhage or acute stroke. Ventricles and sulci appear normal. Posterior fossa and brainstem structures are unremarkable. Paranasal sinuses and remaining extracranial soft tissues appear normal as well. IMPRESSION: 1. Normal noncontrast CT brain. CT was performed with one or more following dose reduction techniques: automated exposure control, adjustment of the mA and kv according to patient's size, or use of a iterative reconstruction technique. DICTATED BY: DEMETRIUS ALICEA MD DATE: 06/08/2419 REASON: S/P INTUBATION ORDERING PHYSICIAN: DALJIT MCDONNELL MD PROCEDURE: CXR1VW - CHEST 1VW CHEST 1VW REASON: S/P INTUBATION COMPARISON: None. FINDINGS: There is a right upper lobe infiltrate consistent with pneumonia. Lungs are otherwise clear. Heart size is normal with no vascular congestion. There is an ET tube with tip in good position at midclavicular point, 4 cm above the kalie. There is an NG tube in the stomach. IMPRESSION: 1. Right upper lobe infiltrate consistent with pneumonia. 2. ET and NG tubes in good position. DICTATED BY: DEMETRIUS ALICEA MD DATE: 06/08/24843 LABORATORY: [ ] Hematology Labs: Test 06/09/24 03:58 06/08/24 05:35 Range/Units White Blood Count 14.6 #H 4.8-10.8 K/uL Red Blood Count 4.29 L 4.50-6.20 MIL/uL Hemoglobin 13.6 L 14.0-18.0 g/dL Hematocrit 41.6 #L 42-54 % Mean Corpuscular Volume 97.0 79-99 fL Mean Corpuscular Hemoglobin 31.7 27.0-33.0 pg Mean Corpuscular Hemoglobin Concent 32.7 32.0-36.0 g/dL Red Cell Distribution Width 11.2 11.0-15.5 % Platelet Count 253 # 130-400 K/uL Mean Platelet Volume 9.3 7.5-10.5 fL Immature Granulocyte % (Auto) 0.5 0-1 % Neutrophils (%) (Auto) 90.8 H 40.0-77.0 % Lymphocytes (%) (Auto) 4.0 L 21.0-51.0 % Monocytes (%) (Auto) 4.6 3.0-13.0 % Eosinophils (%) (Auto) 0.0 0.0-8.0 % Basophils (%) (Auto) 0.1 0.0-5.0 % Neutrophils # (Auto) 13.3 H 1.8-7.7 K/uL Lymphocytes # (Auto) 0.6 L 1.0-4.8 K/uL Monocytes # (Auto) 0.7 0.1-1.0 K/uL Eosinophils # (Auto) 0.00 0.00-0.70 K/uL Basophils # (Auto) 0.01 0.00-0.20 K/uL Absolute Immature Granulocyte (auto 0.07 0-1 K/uL Nucleated Red Blood Cells 0.0 0.0-0.19 % Segmented Neutrophils % 76 H 40-70 % Band Neutrophils % 7 H 0-2 % Lymphocytes % (Manual) 4 L 22-44 % Monocytes % (Manual) 9 2-9 % Differential Comment MANUAL DIFFERENTIAL Reactive Lymphocytes 4 H 0-0 % White Cell Morphology Comment Platelet Morphology Comment SLIGHT INCREASED Red Blood Cell Morphology MACROCYTIC 1+ Chemistry Labs: Test 06/09/24 12:50 06/09/24 11:27 06/09/24 03:58 06/08/24 12:55 Range/Units Sodium Level 139 136-145 mmol/L Potassium Level 4.8 3.5-5.1 mmol/L Chloride Level 105 101-111 mmol/L Carbon Dioxide Level 23 21-32 mmol/L Blood Urea Nitrogen 40 H 7-18 mg/dL Creatinine 4.4 H 0.5-1.3 mg/dL Glomerular Filtration Rate Calc 18 >90 mL/min Random Glucose 118 H 70-105 mg/dL Total Calcium 7.8 L 8.5-10.1 mg/dL Total Creatine Kinase 178 # 21-232 U/L Whole Blood Glucose 121 H 70-110 MG/DL Hemoglobin A1c 4.8 4.0-6.0 % Estimated Average Glucose (eAG) 91 70-126 mg/dL Total Bilirubin 0.7 0.2-1.0 mg/dL Aspartate Amino Transf (AST/SGOT) 34 10-37 U/L Alanine Aminotransferase (ALT/SGPT) 19 12-78 U/L Alkaline Phosphatase 67 50-136 U/L Total Protein 6.2 6.0-8.3 g/dL Albumin 3.1 L 3.5-5.0 g/dL Lactic Acid Level 2.9 H 0.8-2.5 mmol/L Test 06/08/24 08:57 Range/Units Whole Blood Ketones Quantitative 0.2 0.0-0.6 mmol/L Procalcitonin 0.43 0.05-0.5 ng/mL ASSESSMENT: Hyperkalemia Acute renal failure Postictal Acute metabolic encephalopathy Acute hypoxic respiratory failure Intubated in ED on 06/08 given lethargy to save airway Bilateral upper lobe opacity concerning for aspiration pneumonitis versus community acquired pneumonia Sepsis without septic shock High anion gap metabolic acidosis- resolved Leukocytosis with left shift Hyperglycemia History of seizures, vaping, former cocaine abuse PLAN: Labs, diagnostic, radiologic exams reviewed and interpreted by myself and supervising physician. We have reviewed external records in detail Please renally adjust medications Obtain UA, urine electrolytes, urine creatinine, urine osmolality and complete r enal ultrasound Require close monitoring of renal function and electrolytes Order CBC, CMP, uric acid, TSH and electrolytes in am Continue with renally dosed antibiotics Continue with gentle IV hydration Continue with mechanical ventilation and sedation IV pressors as needed Monitor blood pressure adjust medication doses as needed Avoid hypotensive episodes May use Dilaudid 0.5 mg IV every 6 hours as needed for severe pain Monitor blood sugars Strict intake, output, and daily weight should be monitored Please renally adjust medications Avoid nephrotoxic and nonsteroidal drugs Avoid contrast if possible Will continue to monitor renal function, anemia, electrolytes Treatment plan discussed with patient Questions were answered We have discussed with the other team physicians in detail about the care plan We will continue to monitor the patient closely Thank you for allowing us to participate in the care of this patient Total critical care time spent with patient, nursing staff, critical care team over 35 minutes ATTESTATION BY PHYSICIAN I have seen and examined the patient. I reviewed the documentation, medical decision making, and treatment plan as noted by the mid-level provider above. I agree with the findings and plan of care. ASHWINI BANDA MD, [facility] Jun 09, 2024 15:10
[2024-06-09] MEDS ORDERED: RENAL DOSE IV PRN (15:30)
[2024-06-09 15:48] LABS: CREATININE,URINE RANDOM 73.15 mg/dL (30-135)
--- NOTE | 2024-06-09 16:56 | HMCIMG ---
Exam: Renal and bladder sonogram Reason: Renal failure. FINDINGS: Right kidney is 12.4 x 7.2 x 7.1 cm, left 11.0 x 6.2 x 7.0 cm. There is no mass, stone or hydronephrosis. Cortical thickness is preserved however there is increased echogenicity consistent with a component of chronic renal disease. There is a Dykes catheter in a nondistended urinary bladder. IMPRESSION: 1. Echogenic kidneys consistent with chronic renal disease, size and cortical thickness well preserved.
--- NOTE | 2024-06-09 17:32 | NUR ---
DC Plan Lives with . Independently performs ADLs. Denies HH, provider, or DME. States plan is to return home. verbalized understanding of patient not being able to drive due to seizure. DCP to home. Addendum: 06/09/24 at 1733 by RICHMOND NUNO Amended: Links added.
[2024-06-09] MEDS: Solu-medROL 40MG VIAL IVP SCH (20:24)
[2024-06-09] MEDS: metRONIDazole 500MG/100ML BAG 100 ML IVPB SCH (22:15)
[2024-06-10] VITALS (105 sets, daily range): BP systolic 116–179; BP diastolic 52–109; PULSE 46–123; RESP 8–42; TEMP 98.1–100.4; O2SAT 91–100
[2024-06-10 03:41] LABS: ABG BASE EXCESS -8.5 mmol/L (-2.0-3.0); ABG HCO3 18.6 mmol/L (21.0-28.0); ABG OXYGEN SATURATION 96.8 % (94.0-98.0); ABG PCO2 44 mmHg (35-48); ABG PH 7.245 (7.350-7.450); PO2, ARTERIAL BG 103.4 mmHg (83.0-108.0); VENT MODE, BG AC (ROOM AIR)
[2024-06-10 04:35] LABS: BASOPHILS # (AUTO) 0.01 K/uL (0.00-0.20); BASOPHILS % (AUTO) 0.1 % (0.0-5.0); HEMATOCRIT 38.5 % (42-54); IMMATURE GRANULOCYTE ABSOLUTE 0.09 K/uL (0-1); LYMPHOCYTES # (AUTO) 0.4 K/uL (1.0-4.8); LYMPHOCYTES % (AUTO) 2.6 % (21.0-51.0); MEAN CORPUSCULAR HEMOGLOBIN 31.8 pg (27.0-33.0); MEAN CORPUSCULAR HGB CONC 31.7 g/dL (32.0-36.0); MEAN CORPUSCULAR VOLUME 100.3 fL (79-99); MONOCYTES % (AUTO) 6.9 % (3.0-13.0); NEUTROPHILS # (AUTO) 13.1 K/uL (1.8-7.7); NEUTROPHILS % (AUTO) 89.8 % (40.0-77.0); PLATELET COUNT (AUTO) 223 K/uL (130-400); RED BLOOD CELL COUNT(AUTO) 3.84 MIL/uL (4.50-6.20); RED CELL DISTRIBUTION WIDTH 11.1 % (11.0-15.5); WHITE BLOOD COUNT (AUTO) 14.6 K/uL (4.8-10.8)
[2024-06-10 04:56] LABS: ALBUMIN 2.9 g/dL (3.5-5.0); BILIRUBIN,TOTAL 0.7 mg/dL (0.2-1.0); CREATININE 4.3 mg/dL (0.5-1.3); MAGNESIUM 2.4 mg/dL (1.80-2.40); PHOSPHORUS 5.8 mg/dL (2.5-4.9); POTASSIUM 5.5 mmol/L (3.5-5.1); TOTAL PROTEIN, SERUM 6.1 g/dL (6.0-8.3)
--- NOTE | 2024-06-10 04:56 | NUR ---
G NOTIFIED OCTAVIO MOCK REGARDING ABG.
[2024-06-10] MEDS: ALBUTEROL 0.083% 2.5 MG/3 ML INH IH ONE (05:27)
[2024-06-10] MEDS: SODIUM BICARB 50MEQ 50ML VIAL IV ONE (06:08)
--- NOTE | 2024-06-10 07:05 | NUR ---
UPON ASSESSMENT OF PT, PT AWAKE, NOT FOLLOWING COMMANDS, TRYING TO GET OUT OF BED, TRYING TO PULL ET TUBE OUT. PT PULLING AND REMOVED RIGHT AND LEFT HAND IV'S. . SPOUSE AT BEDSIDE AND AWARE OF PT AGITATION. PT TRIED TO BE REORIENTED AND CALMED DOWN BY STAFF AND SPOUSE. PT CONTINUED TO BE SEVERELY AGITATED.LILIAN HASSAN SUPERVISOR OF OPERATIONS MADE AWARE OF PT SEVERELY AGITATED AND CONDITION. PER MO SUPERVISOR OF OPERATIONS GIVE 1 DOSE OF GEODON 10MG IM, RESTART PT ON PROPOFOL DRIP AND PLACE PT ON SOFT RESTRAINTS. SPOUSE MADE AWARE OF THE REASONING FOR RESTRAINTS AND ALL OTHER ORDERS AND AGREED TO PLAN OF CARE. ALL QUESTIONS WERE ANSWERED.
--- NOTE | 2024-06-10 07:20 | NUR ---
lisa ramirez made aware of all labs
[2024-06-10] MEDS: HALOPERIDOL INJ 5 MG/ML VIAL ONE (08:22)
[2024-06-10] MEDS: ZIPRASIDONE MESYLATE 20 MG/VIAL IM ONE (08:22)
[2024-06-10] MEDS: THIAMINE HCL 100 MG/ML 2ML VIAL IVP SCH (08:28)
[2024-06-10] MEDS: ceFEPime HCL 1 GM VIAL IVPB SCH (08:31)
[2024-06-10] MEDS ORDERED: ZIPRASIDONE MESYLATE 20 MG/VIAL IM PRN (09:00)
--- NOTE | 2024-06-10 09:07 | HMCIMG ---
PORTABLE CHEST RADIOGRAPH INDICATION: REVERIFICATION OF ET TUBE PLACEMENT. COMPARISON: 06/10/2024 at 7:49 AM FINDINGS: Tip of endotracheal tube located 5.4 cm above the kalie. Tip of NG tube within the stomach. Heart size is normal. The pulmonary vascularity and hollis appear normal. No evidence for consolidation. Suspect small layering right greater than left pleural effusions. No pneumothorax detected. IMPRESSION: Tip of NG tube located 5.4 cm above the kalie. Suspect small layering right greater than left pleural effusions.
--- NOTE | 2024-06-10 09:11 | HMCIMG ---
FRONTAL CHEST RADIOGRAPH INDICATION: et tube placement verification COMPARISON: 06/02/2024 at 4:34 AM FINDINGS/IMPRESSION: monitoring engineer leads overlie the field of view. Tip of endotracheal tube located 5.5 cm above the kalie. 2 cm advancement would be ideal. Remainder of the study is unchanged.
--- NOTE | 2024-06-10 09:26 | PN ---
[facility] PROGRESS NOTE Date Patient Seen: Jun 10, 2024 Time of Visit: 09:22 Supervising Physician: Dr. Ventura Primary Care Physician: Never seen a PCP Outpatient Specialists: [facility] Inpatient Consults: Dr. Ventura, PROBLEM LIST: Postictal Acute metabolic encephalopathy secondary to above Acute hypoxic respiratory failure Intubated in ED on 06/08 given lethargy to save airway Bilateral upper lobe opacity concerning for aspiration pneumonitis versus community acquired pneumonia Sepsis without septic shock Acute renal failure secondary to ATN from sepsis High anion gap metabolic acidosis- resolved Leukocytosis with left shift Hyperglycemia History of seizures, vaping, former cocaine abuse INTERVAL HISTORY: 06/09 patient remains intubated on mechanical ventilator with ACVC 16/450/8/45%. His ABG this morning with the pH 7.28 pCO2 44 PO2 of 136 bicarb of 20, O2 sat is 98%. Base excess-6.2. His lactic acid is down to 1.5. His potassium is 5.2 bicarb is 25 up from 12. Creatinine though went up to 3.8 from 1.4. We will give IVF NS bolus this morning and continue with IV maintenance. Repeat BMP levels in the afternoon. we can send sputum culture. Chest x-ray this morning is with manifestation of opacity bilaterally. Continue with Zosyn and start patient on doxycycline. MRSA is negative. Flu and COVID are negative. Otherwise no event overnight. Continue with the anti epileptic drug of choice with Keppra, neurology is following. EEG pending. Continue to wean down sedation as tolerated, now on versed, propofol, and fentanyl. may not be c andidate for SBT 06/10 patient had episodes of severe agitation this morning after he was given sedation holiday inadvertently from inadequate IV access. We gave him anxiolytic Geodon. At the moment, patient is resting , Vital signs blood pressure 136/76 map is 96. Heart rate is 77 and T-max 99.0. He is on ACVC 16/450/5/40%. ABG this morning with the pH 7.24, pCO2 44, PO2 103 bicarb is 18.6 base excess-8.5. His serum bicarb is 23 potassium is 5.5 and creatinine is down to 4.3 from 4.4. Patient has no anion gap metabolic acidosis. We will start patient on bicarb drip given refractory acidosis. Patient has no diarrhea. He has put out better urine output at 2.5L. Balance positive 5.5 L. continue to monitor I/O very closely. Liver function is normal. Culture negative to date. Continue current antibiotic. Continue with current sedation fentanyl, Versed. Start Precedex if tolerated. SBT when patient is following commands appropriately. REVIEW OF SYSTEMS: 12 point ROS reviewed with patient. Pertinent positives mentioned above. Otherwise negative. PHYSICAL EXAM: GENERAL:Intubated, sedated HEENT: EOMI, Sclera non icteric, moist mucosa NECK: Supple, no JVD, trachea midline LUNGS: Rales on upper lobes. No wheezing. HEART: Regular rate and rhythm. Normal S1 and S2, without murmurs ABD: Abdomen soft, nontender. Bowel sounds present EXT: No clubbing cyanosis or edema NEURO: Intubated and sedated Vital Signs (last 8hr) Date Time Temp Pulse Resp B/P (MAP) Pulse Ox O2 Delivery O2 Flow Rate FiO2 06/10/24 09:14 80 40 06/10/24 08:42 96 Ventilator+ 40 06/10/24 08:37 40 06/10/24 08:32 77 16 136/76 (96) 96 06/10/24 08:30 81 15 96 06/10/24 08:18 77 17 158/69 (98) 96 06/10/24 08:03 79 16 149/70 (96) 96 06/10/24 08:00 84 15 95 06/10/24 07:47 90 16 131/78 (95) 95 06/10/24 07:32 100 14 136/76 (96) 95 06/10/24 07:30 103 16 95 06/10/24 07:17 108 15 137/70 (92) 95 06/10/24 07:03 123 42 163/90 (114) 91 06/10/24 07:00 98.1 06/10/24 07:00 67 90 06/10/24 06:46 47 40 06/10/24 05:27 52 16 06/10/24 05:18 46 16 133/61 (85) 100 06/10/24 05:03 48 16 131/60 (83) 100 06/10/24 04:48 47 16 131/55 (80) 100 06/10/24 04:32 98.4 47 16 129/52 (77) 100 06/10/24 04:00 100 Ventilator+ 40 06/10/24 04:00 40 06/10/24 03:54 56 40 06/10/24 03:18 49 16 125/71 (89) 100 06/10/24 03:06 55 17 140/53 (82) 100 06/10/24 02:09 48 16 142/61 (88) 100 06/10/24 01:49 47 16 134/52 (79) 100 LABS: Hematology Labs: Test 06/10/24 04:25 Range/Units White Blood Count 14.6 H 4.8-10.8 K/uL Red Blood Count 3.84 L 4.50-6.20 MIL/uL Hemoglobin 12.2 L 14.0-18.0 g/dL Hematocrit 38.5 L 42-54 % Mean Corpuscular Volume 100.3 H 79-99 fL Mean Corpuscular Hemoglobin 31.8 27.0-33.0 pg Mean Corpuscular Hemoglobin Concent 31.7 L 32.0-36.0 g/dL Red Cell Distribution Width 11.1 11.0-15.5 % Platelet Count 223 130-400 K/uL Mean Platelet Volume 9.6 7.5-10.5 fL Immature Granulocyte % (Auto) 0.6 0-1 % Neutrophils (%) (Auto) 89.8 H 40.0-77.0 % Lymphocytes (%) (Auto) 2.6 L 21.0-51.0 % Monocytes (%) (Auto) 6.9 3.0-13.0 % Eosinophils (%) (Auto) 0.0 0.0-8.0 % Basophils (%) (Auto) 0.1 0.0-5.0 % Neutrophils # (Auto) 13.1 H 1.8-7.7 K/uL Lymphocytes # (Auto) 0.4 L 1.0-4.8 K/uL Monocytes # (Auto) 1.0 0.1-1.0 K/uL Eosinophils # (Auto) 0.00 0.00-0.70 K/uL Basophils # (Auto) 0.01 0.00-0.20 K/uL Absolute Immature Granulocyte (auto 0.09 0-1 K/uL Nucleated Red Blood Cells 0.0 0.0-0.19 % Chemistry Labs: Test 06/10/24 04:25 06/09/24 17:34 06/09/24 12:50 06/09/24 03:58 Range/Units Sodium Level 137 136-145 mmol/L Potassium Level 5.5 H 3.5-5.1 mmol/L Chloride Level 108 101-111 mmol/L Carbon Dioxide Level 23 21-32 mmol/L Blood Urea Nitrogen 46 H 7-18 mg/dL Creatinine 4.3 H 0.5-1.3 mg/dL Glomerular Filtration Rate Calc 19 >90 mL/min Random Glucose 116 H 70-105 mg/dL Total Calcium 8.0 L 8.5-10.1 mg/dL Phosphorus Level 5.8 H 2.5-4.9 mg/dL Magnesium Level 2.40 1.80-2.40 mg/dL Total Bilirubin 0.7 0.2-1.0 mg/dL Aspartate Amino Transf (AST/SGOT) 25 10-37 U/L Alanine Aminotransferase (ALT/SGPT) 20 12-78 U/L Alkaline Phosphatase 58 50-136 U/L Total Protein 6.1 6.0-8.3 g/dL Albumin 2.9 L 3.5-5.0 g/dL Whole Blood Glucose 129 H 70-110 MG/DL Total Creatine Kinase 178 # 21-232 U/L Hemoglobin A1c 4.8 4.0-6.0 % Estimated Average Glucose (eAG) 91 70-126 mg/dL Test 06/08/24 12:55 Range/Units Lactic Acid Level 2.9 H 0.8-2.5 mmol/L DIAGNOSTICS / RADIOLOGY RESULTS: [ ] PLAN NEURO: Minimize central acting medications as possible. Fall Precautions. Well lighted room through the day and minimize interruptions through the night to prevent acute delirium. Goal of RASS 0 to -2 as tolerated PULMONARY: Supplemental 02 as needed Titrate Fio2 to keep Spo2 > or = 90% DuoNebs and CPT as needed IS hourly while awake for pulmonary hygiene Out of bed to chair as tolerated VAP Bundle Vent/BIPAP Settings: 16/450/8/45%. Decrease PEEP to 5. CARDIOVASCULAR: Follow hemodynamics. Titrate vasopressor to keep MAP >65 or systolic blood pressure >95mmHg DRIPS: Fentanyl Propofol Versed NS LINES: PIV GI & NUTRITION: Continue nutritional support Aspirations precautions Prokinetic agents and laxatives as needed KIDNEYS & ELECTROLYTES: Strict monitoring of intake and output Daily weights Avoid nephrotoxic agents Monitor electrolytes and replace as needed Goal urine output of 30mL/hr or 0.5mL/kg/hr Give 30cc /kg IVF ENDOCRINE: Maintain blood glucose between 100-180 at all times. Insulin sliding scale for blood glucose management Check ketone- negative INFECTIOUS DISEASE: Trend temperature. Jackson-culture if febrile. Micro: UA Blood Antibiotics: Rocephin 06/08- changed Azithromycin 06/08-06/08 Doxycycline 06/09 Zosyn 06/09-06/09 Cefepime 06/09 Flagyl 06/09 HEMATOLOGY & COAGULATION: Monitor H&H. Keep Hgb > 7 Transfuse 1 unit of PRBC for Hgb < 7 Transfuse 1 pack of platelets of platelets < 20, 000 Watch for any signs and symptoms of bleeding SKIN: Pressure ulcer prevention per facility protocol Rehab: PT/OT Prophylaxis: GI: Pepcdi DVT: Lovenox Code Status: Full Resuscitation Disposition: ICU Other: Total patient care time exceeds 35 minutes excluding all procedures. Case was discussed and seen with my supervising physician. The above plan was formulated and agreed upon. BABAR HASSAN [facility] Jun 10, 2024 09:26
--- NOTE | 2024-06-10 09:52 | HMCIMG ---
PORTABLE CHEST RADIOGRAPH INDICATION: intubated COMPARISON: 06/09/2024 FINDINGS/IMPRESSION: nurse monitoring leads overlie the field of view. Stable endotracheal and nasogastric tubes, including tip of endotracheal tube located 5.6 cm above the kalie. Stable heart size and favorable decrease in right lung airspace disease, without pneumothorax.
[2024-06-10] MEDS: SODIUM BICARB 8.4% 50ML SYRING 150 MEQ in DEXTROSE 5%-WATER 1,000 ML IVP SCH (09:59)
--- NOTE | 2024-06-10 10:00 | PN ---
[facility] PROGRESS NOTE Date of Service: Jun 10, 2024 Time of Service: 09:54 SUBJECTIVE: 06/09 patient seen at bedside, no acute events overnight. He remains intubated and sedated. He is currently on an FiO2 of 40% with a tidal volume of 450 and a PEEP of 8, saturating at 100%. We will decrease PEEP down to 5 and continue to monitor. According to ventilator settings he may be a good candidate for extubation, we will defer to critical Care for extubation. Patient did have a sedation vacation however he was unmanageable and had to be sedated again, we will repeat tomorrow in an attempt to try to extubate. His creatinine increased from 1.4 up to 3.8, he has not been running any start him on normal saline at 180 cc/hour and continue to monitor urine output. He is likely a little bit dehydrated due to being NPO for prolonged period of time. He has been assessed by Neurology who adjusted his Keppra to a 1000 mg twice daily and they recommended MRI. He will likely get the MRI once he has been extubated. EEG is also pending, we will follow up. Blood cultures are no growth to date, urine culture is still pending. Urine tox positive for marijuana no other substances. 06/10 patient seen at bedside, no acute events overnight. He remains intubated and sedated. Every time sedation is weaned he becomes agitated and began pulling at all his lines, he is sedated once again. We will defer to critical Care for extubation. Patient showing proteinuria and glucosuria which is not normal for a young male his age. He has no history of diabetes. We will initiate further workup to discover the source of his proteinuria. We will order an JORDANA with reflex, p-ANCA and C ANCA and IgA. We will also order an HIV panel and follow up. Creatinine peaked at 4.4 before trending down to 4.3 today, he has adequate urine output with a proximally 2 L in the last 24 hours. Remaining vitals and labs are relatively unremarkable. He has been started on tube feeds and we will continue until he is extubated. REVIEW OF SYSTEMS 12 point ROS negative unless noted in HPI PHYSICAL EXAM GENERAL APPEARANCE: The patient is awake, alert, and oriented, in no acute cardiopulmonary distress. NEUROLOGICAL: Cranial nerves II-XII grossly intact. Motor is 5/5 in bilateral upper and lower extremities proximal to distal. No sensory deficits. HEENT: Face is symmetric. Pupils are equal and reactive. Extraocular movements are intact. NECK: Supple. No JVD. No thyromegaly. No submental, submandibular, pre- /postauricular, occipital or supraclavicular lymphadenopathy. CHEST: Normal chest expansion. No Telemetry. LUNGS: Absence of any rales, rhonchi or any wheezing. CARDIOVASCULAR: Regular. S1 and S2 normal. No appreciable rubs, murmurs or gallops. ABDOMEN: Soft, nontender, and nondistended. There is no rebound, voluntary guarding, or rigidity. : Deferred. No Dykes. EXTREMITIES: Non-edematous and not cyanotic. No clubbing. Good capillary refill. SKIN: No skin breakdown. Vital Signs (last 8hr) Date Time Temp Pulse Resp B/P (MAP) Pulse Ox O2 Delivery O2 Flow Rate FiO2 06/10/24 09:14 80 40 06/10/24 08:42 96 Ventilator+ 40 06/10/24 08:37 40 06/10/24 08:32 77 16 136/76 (96) 96 06/10/24 08:30 81 15 96 06/10/24 08:18 77 17 158/69 (98) 96 06/10/24 08:03 79 16 149/70 (96) 96 06/10/24 08:00 84 15 95 06/10/24 07:47 90 16 131/78 (95) 95 06/10/24 07:32 100 14 136/76 (96) 95 06/10/24 07:30 103 16 95 06/10/24 07:17 108 15 137/70 (92) 95 06/10/24 07:03 123 42 163/90 (114) 91 06/10/24 07:00 98.1 06/10/24 07:00 67 90 06/10/24 06:46 47 40 06/10/24 05:27 52 16 06/10/24 05:18 46 16 133/61 (85) 100 06/10/24 05:03 48 16 131/60 (83) 100 06/10/24 04:48 47 16 131/55 (80) 100 06/10/24 04:32 98.4 47 16 129/52 (77) 100 06/10/24 04:00 100 Ventilator+ 40 06/10/24 04:00 40 06/10/24 03:54 56 40 06/10/24 03:18 49 16 125/71 (89) 100 06/10/24 03:06 55 17 140/53 (82) 100 06/10/24 02:09 48 16 142/61 (88) 100 LABS: Laboratory: Test 06/10/24 04:25 06/10/24 03:39 06/09/24 17:34 06/09/24 15:30 Range/Units White Blood Count 14.6 H 4.8-10.8 K/uL Red Blood Count 3.84 L 4.50-6.20 MIL/uL Hemoglobin 12.2 L 14.0-18.0 g/dL Hematocrit 38.5 L 42-54 % Mean Corpuscular Volume 100.3 H 79-99 fL Mean Corpuscular Hemoglobin 31.8 27.0-33.0 pg Mean Corpuscular Hemoglobin Concent 31.7 L 32.0-36.0 g/dL Red Cell Distribution Width 11.1 11.0-15.5 % Platelet Count 223 130-400 K/uL Mean Platelet Volume 9.6 7.5-10.5 fL Immature Granulocyte % (Auto) 0.6 0-1 % Neutrophils (%) (Auto) 89.8 H 40.0-77.0 % Lymphocytes (%) (Auto) 2.6 L 21.0-51.0 % Monocytes (%) (Auto) 6.9 3.0-13.0 % Eosinophils (%) (Auto) 0.0 0.0-8.0 % Basophils (%) (Auto) 0.1 0.0-5.0 % Neutrophils # (Auto) 13.1 H 1.8-7.7 K/uL Lymphocytes # (Auto) 0.4 L 1.0-4.8 K/uL Monocytes # (Auto) 1.0 0.1-1.0 K/uL Eosinophils # (Auto) 0.00 0.00-0.70 K/uL Basophils # (Auto) 0.01 0.00-0.20 K/uL Absolute Immature Granulocyte (auto 0.09 0-1 K/uL Nucleated Red Blood Cells 0.0 0.0-0.19 % Sodium Level 137 136-145 mmol/L Potassium Level 5.5 H 3.5-5.1 mmol/L Chloride Level 108 101-111 mmol/L Carbon Dioxide Level 23 21-32 mmol/L Blood Urea Nitrogen 46 H 7-18 mg/dL Creatinine 4.3 H 0.5-1.3 mg/dL Glomerular Filtration Rate Calc 19 >90 mL/min Random Glucose 116 H 70-105 mg/dL Total Calcium 8.0 L 8.5-10.1 mg/dL Phosphorus Level 5.8 H 2.5-4.9 mg/dL Magnesium Level 2.40 1.80-2.40 mg/dL Total Bilirubin 0.7 0.2-1.0 mg/dL Aspartate Amino Transf (AST/SGOT) 25 10-37 U/L Alanine Aminotransferase (ALT/SGPT) 20 12-78 U/L Alkaline Phosphatase 58 50-136 U/L Total Protein 6.1 6.0-8.3 g/dL Albumin 2.9 L 3.5-5.0 g/dL Blood Gas Specimen Type Arterial Arterial Blood pH 7.245 *L 7.350-7.450 Arterial Blood Partial Pressure CO2 44 35-48 mmHg Arterial Blood Partial Pressure O2 103.4 83.0-108.0 mmHg Arterial Blood HCO3 18.6 L 21.0-28.0 mmol/L Arterial Blood Oxygen Saturation 96.8 94.0-98.0 % Arterial Blood Base Excess -8.5 L -2.0-3.0 mmol/L Blood Gas Temperature 37.0 35.5-37.0 CELSIUS Blood Gas Respiration Rate 16.0 min. Blood Gas Vent Mode AC ROOM AIR FiO2 40.0 % Blood Gas Tidal Volume 450 ml Blood Gas PEEP 5 cm H2O Blood Gas Specimen Comment LB,RN BETTY Whole Blood Glucose 129 H 70-110 MG/DL Urine Osmolality 281 50-1200 mOsm/kg Urine Random Creatinine 73.15 30-135 mg/dL Urine Random Sodium 36 L 40-220 mmol/l Urine Random Potassium 24 L 25-125 mmol/L Urine Random Chloride 32 L 110-250 mmol/L Test 06/09/24 12:50 06/09/24 04:21 06/09/24 03:58 06/08/24 12:55 Range/Units Total Creatine Kinase 178 # 21-232 U/L Hemoglobin (Blood Gas) 14.3 13.5-17.5 g/dL Sodium (Blood Gas) 138 136-145 MMOL/L Bedside Potassium (Blood Gas) 5.0 H 3.4-4.5 MMOL/L Bedside Chloride (Blood Gas) 106 98-107 MMOL/L Bedside Glucose (Blood Gas) 131 H 65-95 MG/DL Bedside Ionized Calcium (Blood Gas) 1.13 L 1.15-1.33 MMOL/L Bedside Lactic Acid (Blood Gas) 1.59 H 0.36-0.75 MMOL/L Hemoglobin A1c 4.8 4.0-6.0 % Estimated Average Glucose (eAG) 91 70-126 mg/dL Lactic Acid Level 2.9 H 0.8-2.5 mmol/L Current Medications Medications (Trade) Dose Ordered Sig/Samantha Route PRN Reason Start Time Stop Time Status Last Admin Dose Admin Acetaminophen (TYLenol 325MG TAB) 650 mg Q6H PRN PO TEMPERATURE GREATER THAN 101.5 06/08/24 08:30 07/08/24 08:29 Albuterol (DUOneb) 1 udvial [id number] IH 06/08/24 12:00 07/08/24 11:59 06/09/24 23:24 1 UDVIAL Azithromycin 250 ml @ 250 mls/hr Q24H IVPB 06/08/24 08:30 06/08/24 08:42 DC Cefepime HCl (MAXipime 1 GM vial) 1 gm DAILY IVPB 06/10/24 09:00 06/20/24 08:59 06/10/24 08:31 1 GM Cefepime HCl (MAXipime 2 gm vial) 2 gm Q24H IVPB 06/09/24 14:30 06/09/24 18:00 DC 06/09/24 15:00 2 GM Ceftriaxone Sodium (Rocephin 2gm Inj) 2 gm Q24H IVPB 06/08/24 17:00 06/08/24 08:42 DC Dexmedetomidine/ Sodium Chloride (PRECEdex 400MCG/ 100ML-NS) 400 mcg PROTOCOL IV 06/09/24 14:30 07/09/24 14:29 Diazepam (VALium 5 mg TAB) 10 mg Q6H PO 06/09/24 14:30 07/09/24 14:29 06/10/24 08:28 10 MG Doxycycline Hyclate 250 ml @ 125 mls/hr Q12H IV 06/09/24 11:00 06/16/24 10:59 06/09/24 22:15 125 MLS/HR Enoxaparin Sodium (Lovenox) 40 mg DAILY SQ 06/08/24 17:00 07/08/24 16:59 06/10/24 08:32 40 MG Famotidine (Pepcid 20mg Vial) 20 mg BID IV 06/08/24 09:00 06/09/24 09:57 DC 06/09/24 08:10 20 MG Famotidine (Pepcid 20mg Vial) 20 mg Q48H IV 06/11/24 10:00 07/08/24 08:59 Fentanyl Citrate 100 ml @ 2.5 mls/hr PROTOCOL IV 06/08/24 06:30 06/15/24 06:29 06/10/24 09:20 2.5 MLS/HR Insulin Human Regular (humuLIN R 100 UNIT/ML 3ML) INSULIN SLIDING SCAL... Q6H6 SQ 06/08/24 12:00 07/08/24 11:59 Lactulose (Constulose 20gm/ 30ml Udcup) 20 gm BID PRN PO CONSTIPATION 06/08/24 08:30 07/08/24 08:29 Levetiracetam (kepPRA 500 MG/5 ML SD VIAL) 1,000 mg ONCE IV 06/08/24 06:00 06/08/24 08:35 DC 06/08/24 06:00 1,000 MG Levetiracetam (kepPRA 500 MG/5 ML SD VIAL) 2,000 mg ONCE IV 06/08/24 16:00 06/08/24 15:52 DC Levetiracetam 1000 mg/Sodium Chloride 110 ml @ 400 mls/hr BID IV 06/08/24 21:00 07/08/24 20:59 06/10/24 08:31 400 MLS/HR Levetiracetam 500 mg/Sodium Chloride 100 ml @ 400 mls/hr BID IV 06/08/24 21:00 06/08/24 15:48 DC Lorazepam (AtiVAN) 2 mg Q2H PRN IVP SEIZURE 06/09/24 05:30 06/16/24 05:29 Methylprednisolone Sodium Succinate (Solu-medROL 40MG) 40 mg DAILY IVP 06/11/24 09:00 07/08/24 09:29 Methylprednisolone Sodium Succinate (Solu-medROL 40MG) 40 mg Q12H IVP 06/09/24 21:30 06/10/24 08:50 DC 06/10/24 08:28 40 MG Methylprednisolone Sodium Succinate (Solu-medROL 40MG) 40 mg Q8H IVP 06/08/24 09:30 06/09/24 10:56 DC 06/09/24 08:10 40 MG Metronidazole/ Sodium Chloride 100 ml @ 100 mls/hr Q8H6 IVPB 06/09/24 22:00 06/16/24 21:59 06/10/24 05:09 100 MLS/HR Midazolam HCl 100 ml @ 0 mls/hr PROTOCOL IV 06/08/24 12:30 07/08/24 12:29 06/10/24 05:10 10 MLS/HR Ondansetron HCl (zoFRAN 4MG INJ) 4 mg Q6H PRN IV NAUSEA/VOMITING 06/08/24 08:30 07/08/24 08:29 Pharmacy Profile Note (Pharmacy Communication) 1 each ONCE MISC 06/08/24 12:30 06/08/24 12:19 DC Piperacillin Sod/ Tazobactam Sod (Zosyn 3.375gm+NS 50ml) 3.375 gm Q12H IV 06/08/24 22:30 06/09/24 14:27 DC 06/09/24 10:13 3.375 GM Polyethylene Glycol (MIRalax 3350 17 GM POWD.PACK) 17 gm DAILY PRN PO CONSTIPATION 06/08/24 08:30 07/08/24 08:29 Propofol (DIPRivan 1000MG/ 100ML) 1,000 mg PROTOCOL PRN IV SEDATION 06/08/24 06:30 07/08/24 06:29 06/10/24 08:22 1,000 MG Sodium Bicarbonate 150 meq/Dextrose 1,150 ml @ 75 mls/hr [id number] IVP 06/10/24 09:00 07/10/24 08:59 Sodium Chloride 1,000 ml @ 100 mls/hr Q10H IV 06/09/24 10:00 07/09/24 09:59 06/10/24 08:32 180 MLS/HR Thiamine HCl (Vitamin B-1) 100 mg DAILY IVP 06/10/24 09:00 07/10/24 08:59 06/10/24 08:28 100 MG Ziprasidone (Geodon) 10 mg BID PRN IM agitation 06/10/24 09:00 07/10/24 08:59 DIAGNOSTICS / RADIOLOGY: [ ] ASSESSMENT: Status epilepticus s/p intubation (06/08/24) Acute hypoxic respiratory failure intubated Nephrotic range proteinuria Glucosuria Right upper lobe opacity concerning for aspiration pneumonitis versus community acquired pneumonia Pre-renal Acute kidney injury, worsening, POA Rhabdomyolysis secondary to seizure Anion gap metabolic acidosis, resolved Lactic acidosis, lactic acid 3.9, resolved Leukocytosis with left shift, improving Hyperglycemia History of seizures, vaping, former cocaine abuse PLAN: Status epilepticus s/p intubation (06/08/24) -Continue Keppra 1000 mL/hour b.i.d. -Continue mechanical ventilation, wean as able -Seizure precautions -PRN ativan for acute seizure -MRI brain w/wo contrast pending, will follow up -EEG pending, will follow up -neuro consult noted pending on recommendations Right upper lobe opacity concerning for aspiration pneumonitis versus community acquired pneumonia High anion gap metabolic acidosis Leukocytosis with left shift Possibly secondary to aspiration during the seizure event -Vent management per critical care, extubate when able. Vt 450, FiO2 40%, PEEP 5 -Discontinue Zosyn -Start cefepime and doxycycline -Cultures are no growth to date Acute renal failure secondary to ATN from sepsis Proteinuria Glucosuria Rhabdomyolysis - Continue fluid resuscitation - NS @ 180 cc/hr - HIV panel ordered, will follow up - JORDANA, ANCA and IgA panels ordered, will follow up - Repeat renal function lab tomorrow - Monitor urine output - Nephrology consulted, appreciate recommendations Hyperglycemia - Continue sliding scale insulin - Continue hypoglycemia protocol Vaping Cocaine use disorder Marijuana use disorder - Patient will be counselled on importance of abstinence after extubation - Will explain the increased risk of seizures with continued substance abuse Disposition: Pending extubation, improvement in clinical status, nephrology recommendations, nephrology workup Greater than 35 minutes ICU time spent in care of this patient SIDDHARTHA GOMEZ MD Jun 10, 2024 10:00
--- NOTE | 2024-06-10 10:30 | PN ---
PROGRESS NOTE Date of Service: Jun 10, 2024 Time of Service: 10:29 SUBJECTIVE: No seizure has been observed over the past 24 hours. The patient has been hemodynamically stable and afebrile. The patient has been moving all extremities agitated while sedated. Per hospitalist team he has developed proteinuria and will be evaluated for possible HIV. REVIEW OF SYSTEMS CONSTITUTIONAL: Denies fever, chills, or fatigue. HEAD/FACE: No signs of trauma. EENT: Denies eye pain, blurred vision, double vision, or light sensitivity. RESPIRATORY: Denies shortness of breath, cough, wheezing CARDIOVASCULAR: Denies chest pain, palpitation, syncope GASTROINTESTINAL/ABDOMINAL: Denies abdominal pain, constipation, diarrhea, nausea or vomiting GENITOURINARY: Denies dysuria or hematuria. MUSCULOSKELETAL: Denies joint pain, tenderness, or trauma. INTEGUMENTARY: Denies rash or itchiness NEUROLOGICAL/PSYCH: Multiple seizures change in mental status PHYSICAL EXAM Mental status: Comatose unresponsive not following commands. Sedated. Cranial nerves: CN II: Pupils are reactive but sluggish CN III, IV, : VO present but sluggish CN V: unresposive to noxious stimulation CN VII: Face is symmetric with normal eye closure and smile. CN VII: Unable to evaluate CN IX, X: Positive gag CN XI: Unable to evaluate CN XII: Tongue is midline with normal movements and no atrophy. Motor: Patient is not withdrawing to noxious stimulation in any of the extremities Reflexes: Reflexes are 0 and symmetric at the biceps, triceps, knees, and ankles. Plantar responses none obtainable Sensory: Not withdrawing to any noxious stimulation Coordination: Unable to evaluate the patient has a change in mental status Gait/Stance: Unable to evaluate the patient has a change in mental status Vital Signs (last 8hr) Date Time Temp Pulse Resp B/P (MAP) Pulse Ox O2 Delivery O2 Flow Rate FiO2 06/10/24 09:14 80 40 06/10/24 08:42 96 Ventilator+ 40 06/10/24 08:37 40 06/10/24 08:32 77 16 136/76 (96) 96 06/10/24 08:30 81 15 96 06/10/24 08:18 77 17 158/69 (98) 96 06/10/24 08:03 79 16 149/70 (96) 96 06/10/24 08:00 84 15 95 06/10/24 07:47 90 16 131/78 (95) 95 06/10/24 07:32 100 14 136/76 (96) 95 06/10/24 07:30 103 16 95 06/10/24 07:17 108 15 137/70 (92) 95 06/10/24 07:03 123 42 163/90 (114) 91 06/10/24 07:00 98.1 06/10/24 07:00 67 90 06/10/24 06:46 47 40 06/10/24 05:27 52 16 06/10/24 05:18 46 16 133/61 (85) 100 06/10/24 05:03 48 16 131/60 (83) 100 06/10/24 04:48 47 16 131/55 (80) 100 06/10/24 04:32 98.4 47 16 129/52 (77) 100 06/10/24 04:00 100 Ventilator+ 40 06/10/24 04:00 40 06/10/24 03:54 56 40 06/10/24 03:18 49 16 125/71 (89) 100 06/10/24 03:06 55 17 140/53 (82) 100 LABS: Laboratory: Test 06/10/24 04:25 06/10/24 03:39 06/09/24 17:34 06/09/24 15:30 Range/Units White Blood Count 14.6 H 4.8-10.8 K/uL Red Blood Count 3.84 L 4.50-6.20 MIL/uL Hemoglobin 12.2 L 14.0-18.0 g/dL Hematocrit 38.5 L 42-54 % Mean Corpuscular Volume 100.3 H 79-99 fL Mean Corpuscular Hemoglobin 31.8 27.0-33.0 pg Mean Corpuscular Hemoglobin Concent 31.7 L 32.0-36.0 g/dL Red Cell Distribution Width 11.1 11.0-15.5 % Platelet Count 223 130-400 K/uL Mean Platelet Volume 9.6 7.5-10.5 fL Immature Granulocyte % (Auto) 0.6 0-1 % Neutrophils (%) (Auto) 89.8 H 40.0-77.0 % Lymphocytes (%) (Auto) 2.6 L 21.0-51.0 % Monocytes (%) (Auto) 6.9 3.0-13.0 % Eosinophils (%) (Auto) 0.0 0.0-8.0 % Basophils (%) (Auto) 0.1 0.0-5.0 % Neutrophils # (Auto) 13.1 H 1.8-7.7 K/uL Lymphocytes # (Auto) 0.4 L 1.0-4.8 K/uL Monocytes # (Auto) 1.0 0.1-1.0 K/uL Eosinophils # (Auto) 0.00 0.00-0.70 K/uL Basophils # (Auto) 0.01 0.00-0.20 K/uL Absolute Immature Granulocyte (auto 0.09 0-1 K/uL Nucleated Red Blood Cells 0.0 0.0-0.19 % Sodium Level 137 136-145 mmol/L Potassium Level 5.5 H 3.5-5.1 mmol/L Chloride Level 108 101-111 mmol/L Carbon Dioxide Level 23 21-32 mmol/L Blood Urea Nitrogen 46 H 7-18 mg/dL Creatinine 4.3 H 0.5-1.3 mg/dL Glomerular Filtration Rate Calc 19 >90 mL/min Random Glucose 116 H 70-105 mg/dL Total Calcium 8.0 L 8.5-10.1 mg/dL Phosphorus Level 5.8 H 2.5-4.9 mg/dL Magnesium Level 2.40 1.80-2.40 mg/dL Total Bilirubin 0.7 0.2-1.0 mg/dL Aspartate Amino Transf (AST/SGOT) 25 10-37 U/L Alanine Aminotransferase (ALT/SGPT) 20 12-78 U/L Alkaline Phosphatase 58 50-136 U/L Total Protein 6.1 6.0-8.3 g/dL Albumin 2.9 L 3.5-5.0 g/dL Blood Gas Specimen Type Arterial Arterial Blood pH 7.245 *L 7.350-7.450 Arterial Blood Partial Pressure CO2 44 35-48 mmHg Arterial Blood Partial Pressure O2 103.4 83.0-108.0 mmHg Arterial Blood HCO3 18.6 L 21.0-28.0 mmol/L Arterial Blood Oxygen Saturation 96.8 94.0-98.0 % Arterial Blood Base Excess -8.5 L -2.0-3.0 mmol/L Blood Gas Temperature 37.0 35.5-37.0 CELSIUS Blood Gas Respiration Rate 16.0 min. Blood Gas Vent Mode AC ROOM AIR FiO2 40.0 % Blood Gas Tidal Volume 450 ml Blood Gas PEEP 5 cm H2O Blood Gas Specimen Comment LB,RN BETTY Whole Blood Glucose 129 H 70-110 MG/DL Urine Osmolality 281 50-1200 mOsm/kg Urine Random Creatinine 73.15 30-135 mg/dL Urine Random Sodium 36 L 40-220 mmol/l Urine Random Potassium 24 L 25-125 mmol/L Urine Random Chloride 32 L 110-250 mmol/L Test 06/09/24 12:50 06/09/24 04:21 06/09/24 03:58 06/08/24 12:55 Range/Units Total Creatine Kinase 178 # 21-232 U/L Hemoglobin (Blood Gas) 14.3 13.5-17.5 g/dL Sodium (Blood Gas) 138 136-145 MMOL/L Bedside Potassium (Blood Gas) 5.0 H 3.4-4.5 MMOL/L Bedside Chloride (Blood Gas) 106 98-107 MMOL/L Bedside Glucose (Blood Gas) 131 H 65-95 MG/DL Bedside Ionized Calcium (Blood Gas) 1.13 L 1.15-1.33 MMOL/L Bedside Lactic Acid (Blood Gas) 1.59 H 0.36-0.75 MMOL/L Hemoglobin A1c 4.8 4.0-6.0 % Estimated Average Glucose (eAG) 91 70-126 mg/dL Lactic Acid Level 2.9 H 0.8-2.5 mmol/L DIAGNOSTICS / RADIOLOGY: MRI of the brain without contrast pending ASSESSMENT / PLAN: 1).- Generalized tonic-clonic seizure with status epilepticus - now stable intubated sedated. No seizures since admission. Continue levetiracetam to a 1000 mg IV b.i.d.. Seizure precautions while hospitalized and as an outpatient. MRI of the brain without contrast pending Seizure precautions. No new neurological deficits or complaints since admission. No seizures observed. Thank you for your consultation. AMARJIT MILLER MD Jun 10, 2024 10:30
--- NOTE | 2024-06-10 10:36 | PN ---
NEPHROLOGY PROGRESS NOTE Date/Time Patient Seen: Jun 10, 2024 SUBJECTIVE: This is a 23-year-old male with a past medical history of seizures, former cocaine abuse, current marijuana use, and vaping. He presented to the emergency room with complaints of seizures. According to family patient has been noncompliant with seizure medications. UDS was positive for marijuana. Chest x-ray on admission showed right upper lobe infiltrate consistent with pneumonia. He has been started on Solu-Medrol for pneumonia. CT of head was normal. Zosyn has been discontinued and he has been started on cefepime. Blood cultures has been negative MRSA swab was negative. Leukocytosis is improving He was noted to have elevated BUN/creatinine and hyperkalemia. We have been consulted for renal failure. Renal function is improving Electrolytes show potassium of 5.3. Renal ultrasound was noted He continues on gentle IV hydration. Continues with good urine output He continues on pivot via NG tube. He was seen in the ICU, he continues to be intubated and sedated Family at the bedside Condition is critical and guarded REVIEW OF SYSTEMS: Difficult to obtain given status of the patient who remains intubated mechanically ventilated PHYSICAL EXAM: General: acutely ill, sedated, intubated, and mechanically ventilated HEENT: head is atraumatic, pupils equal and reactive, ET tube in place Neck: supple, no masses, no lymphadenopathy, no thyromegaly, no JVD Lungs: decreased breath sounds bilaterally, symmetrical chest movement Cardio: regular rate, S1 and S2 normal, no rub or gallop Abdomen: soft, non tender, no distension, no organomegaly Extremities: trace edema bilateral lower extremities, no cyanosis or clubbing Skin: no rashes or suspicious lesions Neuro: sedated LABORATORY: [ ] Hematology Labs: Test 06/10/24 04:25 Range/Units White Blood Count 14.6 H 4.8-10.8 K/uL Red Blood Count 3.84 L 4.50-6.20 MIL/uL Hemoglobin 12.2 L 14.0-18.0 g/dL Hematocrit 38.5 L 42-54 % Mean Corpuscular Volume 100.3 H 79-99 fL Mean Corpuscular Hemoglobin 31.8 27.0-33.0 pg Mean Corpuscular Hemoglobin Concent 31.7 L 32.0-36.0 g/dL Red Cell Distribution Width 11.1 11.0-15.5 % Platelet Count 223 130-400 K/uL Mean Platelet Volume 9.6 7.5-10.5 fL Immature Granulocyte % (Auto) 0.6 0-1 % Neutrophils (%) (Auto) 89.8 H 40.0-77.0 % Lymphocytes (%) (Auto) 2.6 L 21.0-51.0 % Monocytes (%) (Auto) 6.9 3.0-13.0 % Eosinophils (%) (Auto) 0.0 0.0-8.0 % Basophils (%) (Auto) 0.1 0.0-5.0 % Neutrophils # (Auto) 13.1 H 1.8-7.7 K/uL Lymphocytes # (Auto) 0.4 L 1.0-4.8 K/uL Monocytes # (Auto) 1.0 0.1-1.0 K/uL Eosinophils # (Auto) 0.00 0.00-0.70 K/uL Basophils # (Auto) 0.01 0.00-0.20 K/uL Absolute Immature Granulocyte (auto 0.09 0-1 K/uL Nucleated Red Blood Cells 0.0 0.0-0.19 % Chemistry Labs: Test 06/10/24 04:25 06/09/24 17:34 06/09/24 12:50 06/09/24 03:58 Range/Units Sodium Level 137 136-145 mmol/L Potassium Level 5.5 H 3.5-5.1 mmol/L Chloride Level 108 101-111 mmol/L Carbon Dioxide Level 23 21-32 mmol/L Blood Urea Nitrogen 46 H 7-18 mg/dL Creatinine 4.3 H 0.5-1.3 mg/dL Glomerular Filtration Rate Calc 19 >90 mL/min Random Glucose 116 H 70-105 mg/dL Total Calcium 8.0 L 8.5-10.1 mg/dL Phosphorus Level 5.8 H 2.5-4.9 mg/dL Magnesium Level 2.40 1.80-2.40 mg/dL Total Bilirubin 0.7 0.2-1.0 mg/dL Aspartate Amino Transf (AST/SGOT) 25 10-37 U/L Alanine Aminotransferase (ALT/SGPT) 20 12-78 U/L Alkaline Phosphatase 58 50-136 U/L Total Protein 6.1 6.0-8.3 g/dL Albumin 2.9 L 3.5-5.0 g/dL Whole Blood Glucose 129 H 70-110 MG/DL Total Creatine Kinase 178 # 21-232 U/L Hemoglobin A1c 4.8 4.0-6.0 % Estimated Average Glucose (eAG) 91 70-126 mg/dL Test 06/08/24 12:55 Range/Units Lactic Acid Level 2.9 H 0.8-2.5 mmol/L DIAGNOSTICS / RADIOLOGY: REASON: REVERIFICATION OF ET TUBE PLACEMENT. ORDERING PHYSICIAN: BABAR HASSAN CNP PROCEDURE: CXR1VW - CHEST 1VW PORTABLE CHEST RADIOGRAPH INDICATION: REVERIFICATION OF ET TUBE PLACEMENT. COMPARISON: 06/10/2024 at 7:49 AM FINDINGS: Tip of endotracheal tube located 5.4 cm above the kalie. Tip of NG tube within the stomach. Heart size is normal. The pulmonary vascularity and hollis appear normal. No evidence for consolidation. Suspect small layering right greater than left pleural effusions. No pneumothorax detected. IMPRESSION: Tip of NG tube located 5.4 cm above the kalie. Suspect small layering right greater than left pleural effusions. DICTATED BY: LIVIER BA MD DATE: 06/10/24903 REASON: et tube placement verification ORDERING PHYSICIAN: ONEYDA DALEY MD PROCEDURE: CXR1VW - CHEST 1VW FRONTAL CHEST RADIOGRAPH INDICATION: et tube placement verification COMPARISON: 06/02/2024 at 4:34 AM FINDINGS/IMPRESSION: court monitor leads overlie the field of view. Tip of endotracheal tube located 5.5 cm above the kalie. 2 cm advancement would be ideal. Remainder of the study is unchanged. DICTATED BY: LIVIER BA MD DATE: 06/10/24908 REASON: intubated ORDERING PHYSICIAN: BABAR HASSAN [facility] PROCEDURE: CXR1VW - CHEST 1VW PORTABLE CHEST RADIOGRAPH INDICATION: intubated COMPARISON: 06/09/2024 FINDINGS/IMPRESSION: court monitor leads overlie the field of view. Stable endotracheal and nasogastric tubes, including tip of endotracheal tube located 5.6 cm above the kalie. Stable heart size and favorable decrease in right lung airspace disease, without pneumothorax. DICTATED BY: LIVIER BA MD DATE: 06/10/24948 REASON: Decreased renal function ORDERING PHYSICIAN: FRANSISCO ALVARADOP PROCEDURE: RENAL - US RENAL SONOGRAM Exam: Renal and bladder sonogram Reason: Renal failure. FINDINGS: Right kidney is 12.4 x 7.2 x 7.1 cm, left 11.0 x 6.2 x 7.0 cm. There is no mass, stone or hydronephrosis. Cortical thickness is preserved however there is increased echogenicity consistent with a component of chronic renal disease. There is a Dykes catheter in a nondistended urinary bladder. IMPRESSION: 1. Echogenic kidneys consistent with chronic renal disease, size and cortical thickness well preserved. DICTATED BY: DEMETRIUS ALICEA MD DATE: 06/09/24 165 REASON: Hypoxia, intubated ORDERING PHYSICIAN: BABAR HASSAN CNP PROCEDURE: CXR1VW - CHEST 1VW CHEST 1VW REASON: Hypoxia, intubated COMPARISON: 06/08/2024 FINDINGS: Right upper lobe infiltrate persists, there is now patchy infiltrate in the right lower lobe as well. Left lung appears clear. Heart size is normal. ET and NG tubes remain in place. IMPRESSION: 1. Increasing infiltrate in the right lung. 2. ET and NG tubes in good position. DICTATED BY: DEMETRIUS ALICEA MD DATE: 06/09/24 1012 REASON: Seizure ORDERING PHYSICIAN: DALJIT MCDONNELL MD PROCEDURE: HEAD WO - CT HEAD/BRAIN W/O CONTRAST Exam: NONCONTRAST CT BRAIN REASON: Seizure . COMPARISON: None. TECHNIQUE: Images are obtained from vertex to the skull base. The exam was performed without IV contrast. FINDINGS: There is normal appearing brain parenchyma. There are no focal mass lesions. There is is no evidence of intracranial hemorrhage or acute stroke. Ventricles and sulci appear normal. Posterior fossa and brainstem structures are unremarkable. Paranasal sinuses and remaining extracranial soft tissues appear normal as well. IMPRESSION: 1. Normal noncontrast CT brain. CT was performed with one or more following dose reduction techniques: automated exposure control, adjustment of the mA and kv according to patient's size, or use of a iterative reconstruction technique. DICTATED BY: DEMETRIUS ALICEA MD DATE: 06/08/24818 REASON: S/P INTUBATION ORDERING PHYSICIAN: DALJIT MCDONNELL MD PROCEDURE: CXR1VW - CHEST 1VW CHEST 1VW REASON: S/P INTUBATION COMPARISON: None. FINDINGS: There is a right upper lobe infiltrate consistent with pneumonia. Lungs are otherwise clear. Heart size is normal with no vascular congestion. There is an ET tube with tip in good position at midclavicular point, 4 cm above the kalie. There is an NG tube in the stomach. IMPRESSION: 1. Right upper lobe infiltrate consistent with pneumonia. 2. ET and NG tubes in good position. DICTATED BY: DEMETRIUS ALICEA MD DATE: 06/08/24 0844 ASSESSMENT: Hyperkalemia Acute renal failure Postictal Acute metabolic encephalopathy Acute hypoxic respiratory failure Intubated in ED on 06/08 given lethargy to save airway Bilateral upper lobe opacity concerning for aspiration pneumonitis versus community acquired pneumonia Sepsis without septic shock High anion gap metabolic acidosis- resolved Leukocytosis with left shift Hyperglycemia History of seizures, vaping, former cocaine abuse PLAN: Labs, diagnostic, radiologic exams reviewed and interpreted by myself and supervising physician. We have reviewed external records in detail Feeding to be switched to Nepro due to hyperkalemia. Repeat potassium in 4 hours, may have Lokelma 10 g x 1 of continues with hyperkalemia. Please renally adjust medications Require close monitoring of renal function and electrolytes Order CBC, CMP, uric acid, and electrolytes in am Continue with renally dosed antibiotics Continue with gentle IV hydration Continue with mechanical ventilation and sedation IV pressors as needed Monitor blood pressure adjust medication doses as needed Avoid hypotensive episodes May use Dilaudid 0.5 mg IV every 6 hours as needed for severe pain Monitor blood sugars Strict intake, output, and daily weight should be monitored Please renally adjust medications Avoid nephrotoxic and nonsteroidal drugs Avoid contrast if possible Will continue to monitor renal function, anemia, electrolytes Treatment plan discussed with patient Questions were answered We have discussed with the other team physicians in detail about the care plan We will continue to monitor the patient closely Total critical care time spent with patient, nursing staff, critical care team over 35 minutes ATTESTATION BY PHYSICIAN I have seen and examined the patient. I reviewed the documentation, medical decision making, and treatment plan as noted by the mid-level provider above. I agree with the findings and plan of care. ASHWINI BANDA MD, [facility] Jun 10, 2024 10:36
[2024-06-10 11:27] LABS: HIV 1&2 ANTIBODY Non-Reactive (Negative); HIV-1 p24 Antigen Non-Reactive (Negative)
[2024-06-10] MEDS ORDERED: dexmedeTOMIDine 400MCG/NS100ML IV SCH (11:30)
[2024-06-10] MEDS: dexmedeTOMIDine 400MCG/NS100ML IV SCH (11:33)
--- NOTE | 2024-06-10 12:13 | NUR ---
MO MANUFACTURING ENGINEER PAINT AT BEDSIDE, PT AWAKE, SURROUNDED BY FAMILY.PT FOLLOWING COMMANDS TO FAMILY. MO [place] PLACED PT ON CPAP MODE 5/5 40%FIO2.
--- NOTE | 2024-06-10 12:25 | NUR ---
MRI ON HOLD AT THIS TIME PT UNABLE TO COME DOWN FOR MRI AT THIS TIME PER RN. MRI STILL ON HOLD.
--- NOTE | 2024-06-10 12:40 | NUR ---
pt aao. following commands, able to raise head off bed, saturating 99% respiration :20. eVen and unlabored. lung sounds coarse, minor blood tinge secretions noted. nif-[id number]. lisa assembler carbon brushes made aware . as per lisa extubate without prior abg. /
--- NOTE | 2024-06-10 12:50 | NUR ---
pt continues to follow commands, pt extubated at this time. pt able to bring phlegm independently. pt [id number] no distress noted. resp[irations even and unlabored. famili at bedside. soft restraints removed at this time. wrist hands, no issues noted, radial pulses present, good capillary refil.
--- NOTE | 2024-06-10 15:00 | NUR ---
attempted to collect potassium repeat level as ordered by dr. coulter at this time. pt and spouse voiced to delay exam at moment , to be collected at later time. lisa ramirez made aware,.
[2024-06-10] MEDS: ondanSETRON 4MG INJ IV PRN (16:42)
--- NOTE | 2024-06-10 16:48 | NUR ---
lisa blueprint trimmer made aware of bp systolic above 170's. also informed of nausea and vomiting x2 . new order for hydralazine 10 mg prn, reglan 10mg q8hrs. upon reassessment of blood pressure for administration of hydralazine pr bp systolic drop into 140's systolic. hydralazine was disposed. no dose given.
[2024-06-10] MEDS: hydrALAZine 20MG/ML VIAL ONE (17:21)
[2024-06-10] MEDS: hydrALAZine 20MG/ML VIAL IV PRN (18:43)
[2024-06-10] MEDS: metoCLOPRAmide 10 MG/2 ML VIAL IVP SCH (20:06)
--- NOTE | 2024-06-10 20:56 | HMCSR ---
APPROVED REPORT EXAM: Two-dimensional and M-mode echocardiogram with Doppler and color Doppler. INDICATION ICD: Assess LV Function 2D Dimensions RVDd5.0 cmLVEF(%)66.4 (>50%)LVED Vol(simp.)173.0 mL IVSd1.1 (0.7-1.1cm)FS(%)37 %LVES Vol(simp.)61.8 mL LVDd5.4 (3.8-5.6cm)LA (2D)3.6 (1.6-4.0cm)LVEF(%, simp.)64 % PWd1.2 (0.7-1.1cm)Ao Root(2D)3.3 (2.0-3.7cm)LA ESV INDEX (4CH)32.10 mL/m2 IVSs1.3 cmLVOT diam2.3 (1.8-2.4cm)LA ESV INDEX (2CH)32.10 mL/m2 LVDs3.4 (2.5-4.0cm)LA ESV INDEX (BP)32.90 mL/m2 PWs1.7 cm M-Mode Dimensions EPSS1.5 cm LA (MM)3.7 (1.6-4.0cm) Ao Root(MM)3.1 (2.0-3.7cm) Aortic Valve AoV VTI0.4 mAo Mean GR10.0 mmHgLVOT VTI0.28 m LUCERO (VMAX)3.2 cm2AVA (VTI) 3.2 cm2 Mitral Valve MV E Shez709.6 cm/sDECEL Exgq685 ms MV A Vmax73.2 cm/sP 1/2 T57 ms E/A ratio1.5MVA (PHT)3.9 cm2 TDI E/E' Quiqhm01.7E/E' Ulpcvaw13.9 Medial E' Peak V9.50 cm/sLateral E' Peak V10.20 cm/s Left Ventricle The left ventricle structure and function is normal. There is normal LV segmental wall motion. Mild c oncentric LVH. LVEF is 60-65%. The left ventricular diastolic function is normal. Right Ventricle The right ventricle is moderately dilated with an RVIDd of 5.0 cm. The right ventricular systolic fun ction is normal. Atria The left atrium size is normal. The right atrium is moderately dilated. Aortic Valve The aortic valve is normal in structure and function. No aortic regurgitation is present. There is no aortic valvular stenosis. Mitral Valve The mitral valve is normal in structure and function. There is no mitral valve regurgitation noted. T here is no mitral valve stenosis. Tricuspid Valve The tricuspid valve is normal in structure and function. There is no tricuspid valve regurgitation no jeri. Pulmonic Valve The pulmonary valve is normal in structure and function. There is no pulmonic valvular regurgitation. Great Vessels The aortic root is normal in size. The IVC is normal in size and collapses >50% with inspiration. Pericardium No pericardial effusion. Conclusion Mild concentric LVH. LVEF is 60-65%. There is normal LV segmental wall motion. The left ventricular diastolic function is normal. The right ventricle is moderately dilated with an RVIDd of 5.0 cm. The aortic valve is normal in structure and function. There is no mitral valve regurgitation noted. No pericardial effusion.
--- NOTE | 2024-06-10 21:44 | NUR ---
hebert Pt complaining of urge to urinate "it hurts when I pee". He stated " I pushed it in (hebert) because I couldn't pee. He was made aware that hebert is draining well and possible cause for discomfort is his manipulation of the hebert. He asked if it could be removed and I told him I can call the provider but if removed and unable to void catheter would most likely need to be placed again. Addendum: 06/10/24 at 6742 by DANIELA FRANCIS RN RN he voiced "nevermind"
--- NOTE | 2024-06-10 22:50 | NUR ---
nasal cannula pt removing nasal cannula made aware of the need for supplemental o2 sat dropped to 85% on room air. On 5lpm 94% spouse remains at bedside. will continue to monitor.
--- NOTE | 2024-06-10 23:22 | NUR ---
O2 sat Pt desaturating to 80's while asleep placed on oxymizer 15 lpm o2 sat increased to 95%. will continue to monitor.
[2024-06-11] VITALS (35 sets, daily range): BP systolic 126–195; BP diastolic 55–113; PULSE 62–108; RESP 10–44; TEMP 99.7–101.6; O2SAT 92–99
--- NOTE | 2024-06-11 01:00 | NUR ---
emesis pt had been tolerating small amounts of water and ice chips earlier but at this time he had a large green emesis with small particles of what looked like food. pt had not eaten anything on this shift. Pt immediately asks for water and ice but was told he will be kept npo at this time until am to be evaluated by provider. Addendum: 06/11/24 at 0118 by DANIELA FRANCIS RN RN sean melo was given
[2024-06-11 04:01] LABS: BASOPHILS # (AUTO) 0.02 K/uL (0.00-0.20); BASOPHILS % (AUTO) 0.1 % (0.0-5.0); HEMATOCRIT 36.6 % (42-54); IMMATURE GRANULOCYTE ABSOLUTE 0.13 K/uL (0-1); LYMPHOCYTES # (AUTO) 1.3 K/uL (1.0-4.8); LYMPHOCYTES % (AUTO) 8.6 % (21.0-51.0); MEAN CORPUSCULAR HEMOGLOBIN 32.1 pg (27.0-33.0); MEAN CORPUSCULAR HGB CONC 33.1 g/dL (32.0-36.0); MEAN CORPUSCULAR VOLUME 97.1 fL (79-99); MONOCYTES # (AUTO) 1.1 K/uL (0.1-1.0); MONOCYTES % (AUTO) 7.9 % (3.0-13.0); NEUTROPHILS # (AUTO) 11.9 K/uL (1.8-7.7); NEUTROPHILS % (AUTO) 82.5 % (40.0-77.0); PLATELET COUNT (AUTO) 221 K/uL (130-400); RED BLOOD CELL COUNT(AUTO) 3.77 MIL/uL (4.50-6.20); RED CELL DISTRIBUTION WIDTH 11.1 % (11.0-15.5); WHITE BLOOD COUNT (AUTO) 14.5 K/uL (4.8-10.8)
[2024-06-11] MEDS: BIOTENE 44.3 ML SOLUTION MM PRN (04:07)
[2024-06-11 04:23] LABS: ALBUMIN 2.7 g/dL (3.5-5.0); BILIRUBIN,TOTAL 1.3 mg/dL (0.2-1.0); CREATININE 2.6 mg/dL (0.5-1.3); PHOSPHORUS 3.3 mg/dL (2.5-4.9); POTASSIUM 3.7 mmol/L (3.5-5.1); TOTAL PROTEIN, SERUM 5.8 g/dL (6.0-8.3); URIC ACID 3.8 mg/dL (2.6-7.2)
--- NOTE | 2024-06-11 05:58 | NUR ---
emesis pt with coughing spell became nauseated and had small green emesis did cough up blood tinged sputum.
[2024-06-11] MEDS: Solu-medROL 40MG VIAL IVP SCH (08:25)
[2024-06-11] MEDS: acetaMINOPHEN 325 MG TAB PO PRN (08:40)
[2024-06-11] MEDS: FAMOTIDINE 20MG VIAL IV SCH (09:17)
[2024-06-11 10:08] LABS: BACTERIA,URINE RARE /HPF (None Seen); BILIRUBIN,URINE NEGATIVE (NEGATIVE); COLOR,URINE LIGHT-YELLOW (YELLOW); GLUCOSE, URINE (UA) NEGATIVE (NEGATIVE); KETONES,URINE NEGATIVE (NEGATIVE); LEUKOCYTE ESTERASE ,URINE 25 Leu/uL (NEGATIVE); MUCUS,URINE RARE LPF (None Seen); NITRATE,URINE NEGATIVE (NEGATIVE); OCCULT BLOOD,URINE SMALL (NEGATIVE); PH,URINE 6.5 (5.0-8.0); PROTEIN,URINE NEGATIVE (NEGATIVE); RBC,URINE 26-50 /HPF (0-1); UROBILINOGEN,URINE 0.2 mg/dL (0.2-1.0)
[2024-06-11 10:09] LABS: APPEARANCE,URINE HAZY (CLEAR)
--- NOTE | 2024-06-11 10:14 | PN ---
[facility] PROGRESS NOTE Date Patient Seen: Jun 11, 2024 Time of Visit: 10:10 Supervising Physician: Dr. Shaw Primary Care Physician: Never seen a PCP Outpatient Specialists: [facility] Inpatient Consults: Dr. Ventura, PROBLEM LIST: Postictal Acute metabolic encephalopathy secondary to above - resolved Acute hypoxic respiratory failure Intubated in ED on 06/08 given lethargy to save airway Extubated on 06/10 Left arm phlebitis Acute renal failure secondary to ATN from sepsis Bilateral upper lobe opacity concerning for aspiration pneumonitis versus community acquired pneumonia Sepsis without septic shock- resolved High anion gap metabolic acidosis- resolved Leukocytosis with left shift Hyperglycemia History of seizures, vaping, former cocaine abuse INTERVAL HISTORY: 06/09 patient remains intubated on mechanical ventilator with ACVC 16/450/8/45%. His ABG this morning with the pH 7.28 pCO2 44 PO2 of 136 bicarb of 20, O2 sat is 98%. Base excess-6.2. His lactic acid is down to 1.5. His potassium is 5.2 bicarb is 25 up from 12. Creatinine though went up to 3.8 from 1.4. We will give IVF NS bolus this morning and continue with IV maintenance. Repeat BMP levels in the afternoon. we can send sputum culture. Chest x-ray this morning is with manifestation of opacity bilaterally. Continue with Zosyn and start patient on doxycycline. MRSA is negative. Flu and COVID are negative. Otherwise no event overnight. Continue with the anti epileptic drug of choice with Keppra, neurology is following. EEG pending. Continue to wean down sedation as tolerated, now on versed, propofol, and fentanyl. may not be candidate for SBT 06/10 patient had episodes of severe agitation this morning after he was given sedation holiday inadvertently from inadequate IV access. We gave him anxiolytic Geodon. At the moment, patient is resting , Vital signs blood pressure 136/76 map is 96. Heart rate is 77 and T-max 99.0. He is on ACVC 16/450/5/40%. ABG this morning with the pH 7.24, pCO2 44, PO2 103 bicarb is 18.6 base excess-8.5. His serum bicarb is 23 potassium is 5.5 and creatinine is down to 4.3 from 4.4. Patient has no anion gap metabolic acidosis. We will start patient on bicarb drip given refractory acidosis. Patient has no diarrhea. He has put out better urine output at 2.5L. Balance positive 5.5 L. continue to monitor I/O very closely. Liver function is normal. Culture negative to date. Continue current antibiotic. Continue with current sedation fentanyl, Versed. Start Precedex if tolerated. SBT when patient is following commands appropriately. 06/11 patient has been extubated yesterday, now he is on Oxymizer at 15 L. Saturation oxygen is 94%. Continue to wean down O2 as tolerated, keep sat >92%. Patient has fever this morning with T Max is 101.7. We will obtain blood culture. Send UA. Can discontinue Dykes catheter. Patient has phlebitis in the left arm, avoid using this arm for blood pressure measurement. Keep it elev ated. Warm compresses. Remove IV from left arm. This morning with WBC 14.5 down from 14.6. Continue antibiotics: cefepime, doxy, and flagyl. Obtain chest xray . Hemoglobin is 12.1. Chemistry with bicarb 31. Sodium 146. BUN is 34 this is down from 46 and creatinine is 2.6 this is down from 4.3. Patient has put out 4.3 L of urine output with -300 cc balance. Liver function with total bilirubin of 1.3 this is up from 0.7 yesterday AST and ALT are within normal limits. Avoid hepatotoxin drugs. REVIEW OF SYSTEMS: 12 point ROS reviewed with patient. Pertinent positives mentioned above. Otherwise negative. PHYSICAL EXAM: GENERAL: AAOX3, appropriate. HEENT: EOMI, Sclera non icteric, moist mucosa NECK: Supple, no JVD, trachea midline LUNGS: Rales on upper lobes. No wheezing. HEART: Regular rate and rhythm. Normal S1 and S2, without murmurs ABD: Abdomen soft, nontender. Bowel sounds present EXT: No clubbing cyanosis or edema NEURO: no unilateral weakness. Vital Signs (last 8hr) Date Time Temp Pulse Resp B/P (MAP) Pulse Ox O2 Delivery O2 Flow Rate FiO2 06/11/24 09:00 89 24 148/89 89 Oxymizer 15.0 06/11/24 08:40 101.7 06/11/24 08:30 92 19 140/58 94 Oxymizer 15.0 06/11/24 08:00 101.7 80 25 150/77 95 Oxymizer 15.0 06/11/24 07:30 81 23 139/83 95 Oxymizer 15.0 06/11/24 07:00 94 44 126/83 94 Oxymizer 15.0 06/11/24 06:48 107 22 N/Cannula Oximizer Hi LPM 15.0 06/11/24 06:46 108 16 06/11/24 06:00 82 24 169/80 93 oxymizer 15.0 06/11/24 05:45 107 31 169/113 90 06/11/24 05:00 77 16 151/90 95 oxymizer 15.0 06/11/24 04:45 83 17 165/98 92 06/11/24 04:15 76 32 155/98 94 06/11/24 04:00 79 14 195/73 95 oxymizer 15.0 06/11/24 03:45 101 16 127/55 90 06/11/24 03:44 95 N/C Oxymizer Hi LPM* 15 N/A Aerosol Mask+ 06/11/24 03:30 62 16 181/113 100 06/11/24 03:00 100.2 69 11 158/97 92 oxymizer 15.0 06/11/24 02:30 65 15 155/72 91 06/11/24 02:15 74 15 161/90 93 LABS: Hematology Labs: Test 06/11/24 03:48 Range/Units White Blood Count 14.5 H 4.8-10.8 K/uL Red Blood Count 3.77 L 4.50-6.20 MIL/uL Hemoglobin 12.1 L 14.0-18.0 g/dL Hematocrit 36.6 L 42-54 % Mean Corpuscular Volume 97.1 79-99 fL Mean Corpuscular Hemoglobin 32.1 27.0-33.0 pg Mean Corpuscular Hemoglobin Concent 33.1 32.0-36.0 g/dL Red Cell Distribution Width 11.1 11.0-15.5 % Platelet Count 221 130-400 K/uL Mean Platelet Volume 9.5 7.5-10.5 fL Immature Granulocyte % (Auto) 0.9 0-1 % Neutrophils (%) (Auto) 82.5 H 40.0-77.0 % Lymphocytes (%) (Auto) 8.6 L 21.0-51.0 % Monocytes (%) (Auto) 7.9 3.0-13.0 % Eosinophils (%) (Auto) 0.0 0.0-8.0 % Basophils (%) (Auto) 0.1 0.0-5.0 % Neutrophils # (Auto) 11.9 H 1.8-7.7 K/uL Lymphocytes # (Auto) 1.3 1.0-4.8 K/uL Monocytes # (Auto) 1.1 H 0.1-1.0 K/uL Eosinophils # (Auto) 0.00 0.00-0.70 K/uL Basophils # (Auto) 0.02 0.00-0.20 K/uL Absolute Immature Granulocyte (auto 0.13 0-1 K/uL Nucleated Red Blood Cells 0.0 0.0-0.19 % Chemistry Labs: Test 06/11/24 03:48 06/10/24 23:12 06/09/24 12:50 Range/Units Sodium Level 146 H 136-145 mmol/L Potassium Level 3.7 3.5-5.1 mmol/L Chloride Level 110 101-111 mmol/L Carbon Dioxide Level 31 21-32 mmol/L Blood Urea Nitrogen 34 H 7-18 mg/dL Creatinine 2.6 H 0.5-1.3 mg/dL Glomerular Filtration Rate Calc 34 >90 mL/min Random Glucose 120 H 70-105 mg/dL Uric Acid 3.8 2.6-7.2 mg/dL Total Calcium 8.1 L 8.5-10.1 mg/dL Phosphorus Level 3.3 # 2.5-4.9 mg/dL Magnesium Level 2.00 1.80-2.40 mg/dL Total Bilirubin 1.3 #H 0.2-1.0 mg/dL Aspartate Amino Transf (AST/SGOT) 28 10-37 U/L Alanine Aminotransferase (ALT/SGPT) 20 12-78 U/L Alkaline Phosphatase 55 50-136 U/L Total Protein 5.8 L 6.0-8.3 g/dL Albumin 2.7 L 3.5-5.0 g/dL Whole Blood Glucose 111 H 70-110 MG/DL Total Creatine Kinase 178 # 21-232 U/L DIAGNOSTICS / RADIOLOGY RESULTS: [ ] PLAN NEURO: Minimize central acting medications as possible. Fall Precautions. Well lighted room through the day and minimize interruptions through the night to prevent acute delirium. AED per neurology PULMONARY: Supplemental 02 as needed Titrate Fio2 to keep Spo2 > or = 90% DuoNebs and CPT as needed IS hourly while awake for pulmonary hygiene Out of bed to chair as tolerated VAP Bundle IS CARDIOVASCULAR: Follow hemodynamics. Titrate vasopressor to keep MAP >65 or systolic blood pressure >95mmHg DRIPS: NA LINES: PIV GI & NUTRITION: Continue nutritional support Aspirations precautions Prokinetic agents and laxatives as needed KIDNEYS & ELECTROLYTES: Strict monitoring of intake and output Daily weights Avoid nephrotoxic agents Monitor electrolytes and replace as needed Goal urine output of 30mL/hr or 0.5mL/kg/hr Give 30cc /kg IVF ENDOCRINE: Maintain blood glucose between 100-180 at all times. Insulin sliding scale for blood glucose management Check ketone- negative INFECTIOUS DISEASE: Trend temperature. Jackson-culture if febrile. Micro: UA Blood Antibiotics: Rocephin 06/08- changed Azithromycin 06/08-06/08 Doxycycline 06/09 Zosyn 06/09-06/09 Cefepime 06/09 Flagyl 06/09 HEMATOLOGY & COAGULATION: Monitor H&H. Keep Hgb > 7 Transfuse 1 unit of PRBC for Hgb < 7 Transfuse 1 pack of platelets of platelets < 20, 000 Watch for any signs and symptoms of bleeding SKIN: Pressure ulcer prevention per facility protocol Rehab: PT/OT Prophylaxis: GI: Pepcdi DVT: Lovenox Code Status: Full Resuscitation Disposition: D/G to PCCU Other: Total patient care time exceeds 35 minutes excluding all procedures. Case was discussed and seen with my supervising physician. The above plan was formulated and agreed upon. BABAR HASSAN MINI [employer] DEALER Jun 11, 2024 10:14
[2024-06-11] MEDS ORDERED: GADOTERATE MEGLUMINE 5 MMOL/10 ML VIAL IV ONE (10:42)
--- NOTE | 2024-06-11 10:50 | PN ---
[facility] PROGRESS NOTE Date of Service: Jun 11, 2024 Time of Service: 10:43 SUBJECTIVE: 06/09 patient seen at bedside, no acute events overnight. He remains intubated and sedated. He is currently on an FiO2 of 40% with a tidal volume of 450 and a PEEP of 8, saturating at 100%. We will decrease PEEP down to 5 and continue to monitor. According to ventilator settings he may be a good candidate for extubation, we will defer to critical Care for extubation. Patient did have a sedation vacation however he was unmanageable and had to be sedated again, we will repeat tomorrow in an attempt to try to extubate. His creatinine increased from 1.4 up to 3.8, he has not been running any start him on normal saline at 180 cc/hour and continue to monitor urine output. He is likely a little bit dehydrated due to being NPO for prolonged period of time. He has been assessed by Neurology who adjusted his Keppra to a 1000 mg twice daily and they recommended MRI. He will likely get the MRI once he has been extubated. EEG is also pending, we will follow up. Blood cultures are no growth to date, urine culture is still pending. Urine tox positive for marijuana no other substances. 06/10 patient seen at bedside, no acute events overnight. He remains intubated and sedated. Every time sedation is weaned he becomes agitated and began pulling at all his lines, he is sedated once again. We will defer to critical Care for extubation. Patient showing proteinuria and glucosuria which is not normal for a young male his age. He has no history of diabetes. We will initiate further workup to discover the source of his proteinuria. We will order an JORDANA with reflex, p-ANCA and C ANCA and IgA. We will also order an HIV panel and follow up. Creatinine peaked at 4.4 before trending down to 4.3 today, he has adequate urine output with a proximally 2 L in the last 24 hours. Remaining vitals and labs are relatively unremarkable. He has been started on tube feeds and we will continue until he is extubated. 06/11 patient seen at bedside, no acute events overnight. He was successfully extubated and is currently saturating well on 2 L nasal cannula. HIV panel was negative, autoimmune workup is still pending for his proteinuria. We will follow up with Nephrology recommendations. WBC stable at 14.5, similar to yesterday, sodium improved, creatinine improved from 4.3 down to 2.6, remainder of his labs are relatively unremarkable. Repeat UA today showed resolution of proteinuria and glucosuria, given these findings the proteinuria was likely acute in temporary in nature. MRI of brain is still pending, we will follow up REVIEW OF SYSTEMS 12 point ROS negative unless noted in HPI PHYSICAL EXAM GENERAL APPEARANCE: The patient is awake, alert, and oriented, in no acute cardiopulmonary distress. NEUROLOGICAL: Cranial nerves II-XII grossly intact. Motor is 5/5 in bilateral upper and lower extremities proximal to distal. No sensory deficits. HEENT: Face is symmetric. Pupils are equal and reactive. Extraocular movements are intact. NECK: Supple. No JVD. No thyromegaly. No submental, submandibular, pre- /postauricular, occipital or supraclavicular lymphadenopathy. CHEST: Normal chest expansion. No Telemetry. LUNGS: Absence of any rales, rhonchi or any wheezing. CARDIOVASCULAR: Regular. S1 and S2 normal. No appreciable rubs, murmurs or gallops. ABDOMEN: Soft, nontender, and nondistended. There is no rebound, voluntary guarding, or rigidity. : Deferred. No Dykes. EXTREMITIES: Non-edematous and not cyanotic. No clubbing. Good capillary refill. SKIN: No skin breakdown. Vital Signs (last 8hr) Date Time Temp Pulse Resp B/P (MAP) Pulse Ox O2 Delivery O2 Flow Rate FiO2 06/11/24 09:00 89 24 148/89 89 Oxymizer 15.0 06/11/24 08:40 101.7 06/11/24 08:30 92 19 140/58 94 Oxymizer 15.0 06/11/24 08:00 101.7 80 25 150/77 95 Oxymizer 15.0 06/11/24 07:30 81 23 139/83 95 Oxymizer 15.0 06/11/24 07:00 94 44 126/83 94 Oxymizer 15.0 06/11/24 06:48 107 22 N/Cannula Oximizer Hi LPM 15.0 06/11/24 06:46 108 16 06/11/24 06:00 82 24 169/80 93 oxymizer 15.0 06/11/24 05:45 107 31 169/113 90 06/11/24 05:00 77 16 151/90 95 oxymizer 15.0 06/11/24 04:45 83 17 165/98 92 06/11/24 04:15 76 32 155/98 94 06/11/24 04:00 79 14 195/73 95 oxymizer 15.0 06/11/24 03:45 101 16 127/55 90 06/11/24 03:44 95 N/C Oxymizer Hi LPM* 15 N/A Aerosol Mask+ 06/11/24 03:30 62 16 181/113 100 06/11/24 03:00 100.2 69 11 158/97 92 oxymizer 15.0 LABS: Laboratory: Test 06/11/24 09:49 06/11/24 03:48 06/10/24 23:12 06/10/24 04:25 Range/Units Urine Color LIGHT-YELLOW YELLOW Urine Appearance HAZY CLEAR Urine pH 6.5 5.0-8.0 Urine Specific Lyons 1.008 1.001-1.031 Urine Protein NEGATIVE NEGATIVE mg/dL Urine Glucose (UA) NEGATIVE NEGATIVE mg/dL Urine Ketones NEGATIVE NEGATIVE mg/dL Urine Occult Blood SMALL H NEGATIVE Urine Nitrate NEGATIVE NEGATIVE Urine Bilirubin NEGATIVE NEGATIVE mg/dL Urine Urobilinogen 0.2 0.2-1.0 mg/dL Urine Leukocyte Esterase 25 H NEGATIVE Jarad/uL Urine RBC 26-50 H 0-1 /HPF Urine WBC 2-5 H 0-1 /HPF Urine Bacteria RARE None Seen /HPF White Blood Count 14.5 H 4.8-10.8 K/uL Red Blood Count 3.77 L 4.50-6.20 MIL/uL Hemoglobin 12.1 L 14.0-18.0 g/dL Hematocrit 36.6 L 42-54 % Mean Corpuscular Volume 97.1 79-99 fL Mean Corpuscular Hemoglobin 32.1 27.0-33.0 pg Mean Corpuscular Hemoglobin Concent 33.1 32.0-36.0 g/dL Red Cell Distribution Width 11.1 11.0-15.5 % Platelet Count 221 130-400 K/uL Mean Platelet Volume 9.5 7.5-10.5 fL Immature Granulocyte % (Auto) 0.9 0-1 % Neutrophils (%) (Auto) 82.5 H 40.0-77.0 % Lymphocytes (%) (Auto) 8.6 L 21.0-51.0 % Monocytes (%) (Auto) 7.9 3.0-13.0 % Eosinophils (%) (Auto) 0.0 0.0-8.0 % Basophils (%) (Auto) 0.1 0.0-5.0 % Neutrophils # (Auto) 11.9 H 1.8-7.7 K/uL Lymphocytes # (Auto) 1.3 1.0-4.8 K/uL Monocytes # (Auto) 1.1 H 0.1-1.0 K/uL Eosinophils # (Auto) 0.00 0.00-0.70 K/uL Basophils # (Auto) 0.02 0.00-0.20 K/uL Absolute Immature Granulocyte (auto 0.13 0-1 K/uL Nucleated Red Blood Cells 0.0 0.0-0.19 % Sodium Level 146 H 136-145 mmol/L Potassium Level 3.7 3.5-5.1 mmol/L Chloride Level 110 101-111 mmol/L Carbon Dioxide Level 31 21-32 mmol/L Blood Urea Nitrogen 34 H 7-18 mg/dL Creatinine 2.6 H 0.5-1.3 mg/dL Glomerular Filtration Rate Calc 34 >90 mL/min Random Glucose 120 H 70-105 mg/dL Uric Acid 3.8 2.6-7.2 mg/dL Total Calcium 8.1 L 8.5-10.1 mg/dL Phosphorus Level 3.3 # 2.5-4.9 mg/dL Magnesium Level 2.00 1.80-2.40 mg/dL Total Bilirubin 1.3 #H 0.2-1.0 mg/dL Aspartate Amino Transf (AST/SGOT) 28 10-37 U/L Alanine Aminotransferase (ALT/SGPT) 20 12-78 U/L Alkaline Phosphatase 55 50-136 U/L Total Protein 5.8 L 6.0-8.3 g/dL Albumin 2.7 L 3.5-5.0 g/dL Whole Blood Glucose 111 H 70-110 MG/DL HIV (1&2) Antibody Non-Reactive Negative HIV P24 Antigen, Qualitative Non-Reactive Negative Test 06/10/24 03:39 06/09/24 15:30 06/09/24 12:50 Range/Units Blood Gas Specimen Type Arterial Arterial Blood pH 7.245 *L 7.350-7.450 Arterial Blood Partial Pressure CO2 44 35-48 mmHg Arterial Blood Partial Pressure O2 103.4 83.0-108.0 mmHg Arterial Blood HCO3 18.6 L 21.0-28.0 mmol/L Arterial Blood Oxygen Saturation 96.8 94.0-98.0 % Arterial Blood Base Excess -8.5 L -2.0-3.0 mmol/L Blood Gas Temperature 37.0 35.5-37.0 CELSIUS Blood Gas Respiration Rate 16.0 min. Blood Gas Vent Mode AC ROOM AIR FiO2 40.0 % Blood Gas Tidal Volume 450 ml Blood Gas PEEP 5 cm H2O Blood Gas Specimen Comment LB,RN BETTY Urine Osmolality 281 50-1200 mOsm/kg Urine Random Creatinine 73.15 30-135 mg/dL Urine Random Sodium 36 L 40-220 mmol/l Urine Random Potassium 24 L 25-125 mmol/L Urine Random Chloride 32 L 110-250 mmol/L Total Creatine Kinase 178 # 21-232 U/L Current Medications Medications (Trade) Dose Ordered Sig/Samantha Route PRN Reason Start Time Stop Time Status Last Admin Dose Admin Acetaminophen (TYLenol 325MG TAB) 650 mg Q6H PRN PO TEMPERATURE GREATER THAN 101.5 06/08/24 08:30 07/08/24 08:29 06/11/24 08:40 650 MG Albuterol (DUOneb) 1 udvial [id number] IH 06/08/24 12:00 07/08/24 11:59 06/11/24 06:44 1 UDVIAL Azithromycin 250 ml @ 250 mls/hr Q24H IVPB 06/08/24 08:30 06/08/24 08:42 DC Cefepime HCl (MAXipime 1 GM vial) 1 gm DAILY IVPB 06/10/24 09:00 06/20/24 08:59 06/11/24 08:26 1 GM Cefepime HCl (MAXipime 2 gm vial) 2 gm Q24H IVPB 06/09/24 14:30 06/09/24 18:00 DC 06/09/24 15:00 2 GM Ceftriaxone Sodium (Rocephin 2gm Inj) 2 gm Q24H IVPB 06/08/24 17:00 06/08/24 08:42 DC Dexmedetomidine/ Sodium Chloride (PRECEdex 400MCG/ 100ML-NS) 400 mcg PROTOCOL IV 06/09/24 14:30 06/10/24 11:40 DC 06/10/24 11:33 400 MCG Dexmedetomidine/ Sodium Chloride (PRECEdex 400MCG/ 100ML-NS) 400 mcg PROTOCOL IV 06/10/24 11:30 06/11/24 10:09 DC Diazepam (VALium 5 mg TAB) 10 mg Q6H PO 06/09/24 14:30 07/09/24 14:29 06/11/24 08:26 10 MG Doxycycline Hyclate 250 ml @ 125 mls/hr Q12H IV 06/09/24 11:00 06/16/24 10:59 06/11/24 10:09 125 MLS/HR Enoxaparin Sodium (Lovenox) 40 mg DAILY SQ 06/08/24 17:00 07/08/24 16:59 06/11/24 08:26 40 MG Famotidine (Pepcid 20mg Vial) 20 mg BID IV 06/08/24 09:00 06/09/24 09:57 DC 06/09/24 08:10 20 MG Famotidine (Pepcid 20mg Vial) 20 mg Q48H IV 06/11/24 10:00 07/08/24 08:59 06/11/24 09:17 20 MG Fentanyl Citrate 100 ml @ 2.5 mls/hr PROTOCOL IV 06/08/24 06:30 06/10/24 14:15 DC 06/10/24 09:20 2.5 MLS/HR Hydralazine HCl (APRESOLine 20MG INJ) 10 mg Q4H PRN IV ADMINISTER FOR SBP > 160 06/10/24 17:30 07/10/24 17:29 06/11/24 06:25 10 MG Insulin Human Regular (humuLIN R 100 UNIT/ML 3ML) INSULIN SLIDING SCAL... Q6H6 SQ 06/08/24 12:00 06/11/24 09:19 DC Lactulose (Constulose 20gm/ 30ml Udcup) 20 gm BID PRN PO CONSTIPATION 06/08/24 08:30 07/08/24 08:29 Levetiracetam (kepPRA 500 MG/5 ML SD VIAL) 1,000 mg ONCE IV 06/08/24 06:00 06/08/24 08:35 DC 06/08/24 06:00 1,000 MG Levetiracetam (kepPRA 500 MG/5 ML SD VIAL) 2,000 mg ONCE IV 06/08/24 16:00 06/08/24 15:52 DC Levetiracetam 1000 mg/Sodium Chloride 110 ml @ 400 mls/hr BID IV 06/08/24 21:00 07/08/24 20:59 06/11/24 10:14 400 MLS/HR Levetiracetam 500 mg/Sodium Chloride 100 ml @ 400 mls/hr BID IV 06/08/24 21:00 06/08/24 15:48 DC Lorazepam (AtiVAN) 2 mg Q2H PRN IVP SEIZURE 06/09/24 05:30 06/16/24 05:29 Methylprednisolone Sodium Succinate (Solu-medROL 40MG) 40 mg DAILY IVP 06/11/24 09:00 07/08/24 09:29 06/11/24 08:25 40 MG Methylprednisolone Sodium Succinate (Solu-medROL 40MG) 40 mg Q12H IVP 06/09/24 21:30 06/10/24 08:50 DC 06/10/24 08:28 40 MG Methylprednisolone Sodium Succinate (Solu-medROL 40MG) 40 mg Q8H IVP 06/08/24 09:30 06/09/24 10:56 DC 06/09/24 08:10 40 MG Metoclopramide HCl (regLAN 10MG IV) 10 mg Q8H5 IVP 06/10/24 21:00 06/11/24 10:05 DC 06/11/24 05:03 10 MG Metronidazole/ Sodium Chloride 100 ml @ 100 mls/hr Q8H6 IVPB 06/09/24 22:00 06/16/24 21:59 06/11/24 05:37 100 MLS/HR Midazolam HCl 100 ml @ 0 mls/hr PROTOCOL IV 06/08/24 12:30 06/10/24 14:15 DC 06/10/24 05:10 10 MLS/HR Ondansetron HCl (zoFRAN 4MG INJ) 4 mg Q6H PRN IV NAUSEA/VOMITING 06/08/24 08:30 07/08/24 08:29 06/11/24 08:24 4 MG Pharmacy Profile Note (Pharmacy Communication) 1 each ONCE MISC 06/08/24 12:30 06/08/24 12:19 DC Piperacillin Sod/ Tazobactam Sod (Zosyn 3.375gm+NS 50ml) 3.375 gm Q12H IV 06/08/24 22:30 06/09/24 14:27 DC 06/09/24 10:13 3.375 GM Polyethylene Glycol (MIRalax 3350 17 GM POWD.PACK) 17 gm DAILY PRN PO CONSTIPATION 06/08/24 08:30 07/08/24 08:29 Propofol (DIPRivan 1000MG/ 100ML) 1,000 mg PROTOCOL PRN IV SEDATION 06/08/24 06:30 06/11/24 10:09 DC 06/10/24 08:22 1,000 MG Sodium Bicarbonate 150 meq/Dextrose 1,150 ml @ 75 mls/hr [id number] IVP 06/10/24 09:00 06/11/24 10:05 DC 06/10/24 23:53 75 MLS/HR Sodium Chloride 1,000 ml @ 100 mls/hr Q10H IV 06/09/24 10:00 06/11/24 10:05 DC 06/11/24 02:37 100 MLS/HR Thiamine HCl (Vitamin B-1) 100 mg DAILY IVP 06/10/24 09:00 07/10/24 08:59 06/11/24 08:24 100 MG Ziprasidone (Geodon) 10 mg BID PRN IM agitation 06/10/24 09:00 07/10/24 08:59 DIAGNOSTICS / RADIOLOGY: [ ] ASSESSMENT: Status epilepticus s/p intubation (06/08/24) Acute hypoxic respiratory failure, extubated (06/11 24) Nephrotic range proteinuria, resolved Glucosuria, resolved Right upper lobe opacity concerning for aspiration pneumonitis versus community acquired pneumonia Pre-renal Acute kidney injury, worsening, POA Rhabdomyolysis secondary to seizure Anion gap metabolic acidosis, resolved Lactic acidosis, lactic acid 3.9, resolved Leukocytosis with left shift, improving Hyperglycemia History of seizures, vaping, former cocaine abuse PLAN: Status epilepticus s/p intubation (06/08/24), extubated (06/11/24) -Continue Keppra 1000 mL/hour b.i.d. -Seizure precautions -PRN ativan for acute seizure -MRI brain w/wo contrast pending, will follow up -EEG pending, will follow up -neuro consult noted appreciate recommendations Right upper lobe opacity concerning for aspiration pneumonitis versus community acquired pneumonia High anion gap metabolic acidosis, resolved Leukocytosis with left shift, resolved Possibly secondary to aspiration during the seizure event -Continue cefepime and doxycycline -Cultures are no growth to date Acute renal failure secondary to ATN from sepsis, improving Proteinuria, resolved Glucosuria, resolved Rhabdomyolysis, resolved - NS @ 180 cc/hr - JORDANA, ANCA and IgA panels ordered, will follow up - Monitor urine output - Nephrology consulted, appreciate recommendations Hyperglycemia, resolved - Continue sliding scale insulin - Continue hypoglycemia protocol Vaping Cocaine use disorder Marijuana use disorder - Patient will be counselled on importance of abstinence after extubation - Will explain the increased risk of seizures with continued substance abuse Disposition: Pending MRI, nephrology recommendations, nephrology workup Greater than 35 minutes ICU time spent in care of this patient SIDDHARTHA GOMEZ MD Jun 11, 2024 10:50
--- NOTE | 2024-06-11 10:50 | HMCIMG ---
CHEST 1VW REASON: hypoxia COMPARISON: None. FINDINGS: There are increasing perihilar infiltrates more pronounced on the right than the left. These could represent pneumonia or edema. Lungs are otherwise clear. Heart size is normal. Mediastinum and bony thorax appear unremarkable. ET and NG tubes have been removed. IMPRESSION: 1. Increasing perihilar infiltrates which could be pneumonia or edema.
--- NOTE | 2024-06-11 11:58 | PN ---
NEPHROLOGY PROGRESS NOTE Date/Time Patient Seen: Jun 11, 2024 SUBJECTIVE: This is a 23-year-old male with a past medical history of seizures, former cocaine abuse, current marijuana use, and vaping. He presented to the emergency room with complaints of seizures. According to family patient has been noncompliant with seizure medications. UDS was positive for marijuana. Chest x-ray on admission showed right upper lobe infiltrate consistent with pneumonia. He has been started on Solu-Medrol for pneumonia. CT of head was normal. Continues on Keppra for seizures Blood cultures has been negative Continues on cefepime, doxycycline, and metronidazole, He has been extubated and doing well MRI of the brain was normal. He was noted to have elevated BUN/creatinine and hyperkalemia. We have been consulted for renal failure. Renal function is improving Electrolytes are stable Renal ultrasound was noted Continues with good urine output Repeat UA was negative for proteinuria He was seen in the ICU, in no acute distress Family at the bedside Condition is critical and guarded REVIEW OF SYSTEMS: GENERAL: Negative for any nausea, vomiting, fevers, chills, or weight loss. NEUROLOGIC: Negative for any blurry vision, blind spots, double vision, facial asymmetry, dysphagia, dysarthria, hemiparesis, hemisensory deficits, vertigo, ataxia. HEENT: Negative for any head trauma, neck trauma, neck stiffness, photophobia, p honophobia, sinusitis, rhinitis. CARDIAC: Negative for any chest pain, dyspnea on exertion, paroxysmal nocturnal dyspnea, peripheral edema. PULMONARY: Negative for any shortness of breath, wheezing, COPD, or TB exposure. GASTROINTESTINAL: Negative for any abdominal pain, nausea, vomiting, bright red blood per rectum, melena. GENITOURINARY: Negative for any dysuria, hematuria, incontinence. INTEGUMENTARY: Negative for any rashes, cuts, insect bites. RHEUMATOLOGIC: Negative for any joint pains, photosensitive rashes, history of vasculitis or kidney problems. HEMATOLOGIC: Negative for any abnormal bruising, frequent infections or bleed ing. PHYSICAL EXAM: GENERAL: Pale, acutely ill female, lethargic, no acute distress. Well-nourished. EYES: EOMI. Anicteric. HENT: Moist mucous membranes. No scleral icterus. No cervical lymphadenopathy. LUNGS: Clear to auscultation bilaterally. No accessory muscle use. CARDIOVASCULAR: Regular rate and rhythm. No murmur. No JVD. ABDOMEN: Soft, non-tender and non-distended. No palpable masses. EXTREMITIES: No edema. Non-tender. SKIN: No rashes or lesions. Warm. NEUROLOGIC: No focal neurological deficits. CN II-XII grossly intact, but not individually tested. PSYCHIATRIC: Cooperative. Appropriate mood and affect. LABORATORY: [ ] Hematology Labs: Test 06/11/24 03:48 Range/Units White Blood Count 14.5 H 4.8-10.8 K/uL Red Blood Count 3.77 L 4.50-6.20 MIL/uL Hemoglobin 12.1 L 14.0-18.0 g/dL Hematocrit 36.6 L 42-54 % Mean Corpuscular Volume 97.1 79-99 fL Mean Corpuscular Hemoglobin 32.1 27.0-33.0 pg Mean Corpuscular Hemoglobin Concent 33.1 32.0-36.0 g/dL Red Cell Distribution Width 11.1 11.0-15.5 % Platelet Count 221 130-400 K/uL Mean Platelet Volume 9.5 7.5-10.5 fL Immature Granulocyte % (Auto) 0.9 0-1 % Neutrophils (%) (Auto) 82.5 H 40.0-77.0 % Lymphocytes (%) (Auto) 8.6 L 21.0-51.0 % Monocytes (%) (Auto) 7.9 3.0-13.0 % Eosinophils (%) (Auto) 0.0 0.0-8.0 % Basophils (%) (Auto) 0.1 0.0-5.0 % Neutrophils # (Auto) 11.9 H 1.8-7.7 K/uL Lymphocytes # (Auto) 1.3 1.0-4.8 K/uL Monocytes # (Auto) 1.1 H 0.1-1.0 K/uL Eosinophils # (Auto) 0.00 0.00-0.70 K/uL Basophils # (Auto) 0.02 0.00-0.20 K/uL Absolute Immature Granulocyte (auto 0.13 0-1 K/uL Nucleated Red Blood Cells 0.0 0.0-0.19 % Chemistry Labs: Test 06/11/24 03:48 06/10/24 23:12 06/09/24 12:50 Range/Units Sodium Level 146 H 136-145 mmol/L Potassium Level 3.7 3.5-5.1 mmol/L Chloride Level 110 101-111 mmol/L Carbon Dioxide Level 31 21-32 mmol/L Blood Urea Nitrogen 34 H 7-18 mg/dL Creatinine 2.6 H 0.5-1.3 mg/dL Glomerular Filtration Rate Calc 34 >90 mL/min Random Glucose 120 H 70-105 mg/dL Uric Acid 3.8 2.6-7.2 mg/dL Total Calcium 8.1 L 8.5-10.1 mg/dL Phosphorus Level 3.3 # 2.5-4.9 mg/dL Magnesium Level 2.00 1.80-2.40 mg/dL Total Bilirubin 1.3 #H 0.2-1.0 mg/dL Aspartate Amino Transf (AST/SGOT) 28 10-37 U/L Alanine Aminotransferase (ALT/SGPT) 20 12-78 U/L Alkaline Phosphatase 55 50-136 U/L Total Protein 5.8 L 6.0-8.3 g/dL Albumin 2.7 L 3.5-5.0 g/dL Whole Blood Glucose 111 H 70-110 MG/DL Total Creatine Kinase 178 # 21-232 U/L DIAGNOSTICS / RADIOLOGY: REASON: seizures ORDERING PHYSICIAN: SIDDHARTHA GOMEZ MD PROCEDURE: BRAIN WWO - MR BRAIN WWO CON MR BRAIN WWO CON REASON: seizures COMPARISON: There are no prior MRI scans available for comparison. TECHNIQUE: Routine cerebral imaging protocol was performed. Images are also obtained pre and post gadolinium contrast infusion. CONTRAST: Clariscan 10 cc FINDINGS: There is normal appearing brain parenchyma. There are no focal mass lesions. There are no areas of abnormal contrast enhancement or abnormal signal intensity. Ventricles and sulci appear normal. Posterior fossa and brainstem structures appear unremarkable. There is no evidence of intracranial hemorrhage. Diffusion-weighted images are negative for an acute ischemic process. There are no abnormal fluid collections. Extracranial soft tissues appear normal as well. IMPRESSION: 1. Normal pre and postcontrast MRI of the brain. DICTATED BY: DEMETRIUS ALICEA MD DATE: 06/11/24 1223 REASON: hypoxia ORDERING PHYSICIAN: BABAR HASSAN CNP PROCEDURE: CXR1VW - CHEST 1VW CHEST 1VW REASON: hypoxia COMPARISON: None. FINDINGS: There are increasing perihilar infiltrates more pronounced on the right than the left. These could represent pneumonia or edema. Lungs are otherwise clear. Heart size is normal. Mediastinum and bony thorax appear unremarkable. ET and NG tubes have been removed. IMPRESSION: 1. Increasing perihilar infiltrates which could be pneumonia or edema. DICTATED BY: DEMETRIUS ALICEA MD DATE: 06/11/24 1046 REASON: evaluate systolic and valve function ORDERING PHYSICIAN: BABAR HASSAN CNP PROCEDURE: ECHO CMP - ECHO 2-D COMPLETE APPROVED REPORT EXAM: Two-dimensional and M-mode echocardiogram with Doppler and color Doppler. INDICATION ICD: Assess LV Function 2D Dimensions RVDd 5.0 cm LVEF(%) 66.4 (>50%) LVED Vol(simp.) 173.0 mL IVSd 1.1 (0.7-1.1cm) FS(%) 37 % LVES Vol(simp.) 61.8 mL LVDd 5.4 (3.8-5.6cm) LA (2D) 3.6 (1.6-4.0cm) LVEF(%, simp.) 64 % PWd 1.2 (0.7-1.1cm) Ao Root(2D) 3.3 (2.0-3.7cm) LA ESV INDEX (4CH) 32.10 mL/m2 IVSs 1.3 cm LVOT diam 2.3 (1.8-2.4cm) LA ESV INDEX (2CH) 32.10 mL/m2 LVDs 3.4 (2.5-4.0cm) LA ESV INDEX (BP) 32.90 mL/m2 PWs 1.7 cm M-Mode Dimensions EPSS 1.5 cm LA (MM) 3.7 (1.6-4.0cm) Ao Root(MM) 3.1 (2.0-3.7cm) Aortic Valve AoV VTI 0.4 m Ao Mean GR 10.0 mmHg LVOT VTI 0.28 m LUCERO (VMAX) 3.2 cm2 LUCERO (VTI) 3.2 cm2 Mitral Valve MV E Vmax 111.6 cm/s DECEL Time 187 ms MV A Vmax 73.2 cm/s P 1/2 T 57 ms E/A ratio 1.5 MVA (PHT) 3.9 cm2 TDI E/E' Medial 11.7 E/E' Lateral 10.9 Medial E' Peak V 9.50 cm/s Lateral E' Peak V 10.20 cm/s Left Ventricle The left ventricle structure and function is normal. There is normal LV segmental wall motion. Mild concentric LVH. LVEF is 60-65%. The left ventricular diastolic function is normal. Right Ventricle The right ventricle is moderately dilated with an RVIDd of 5.0 cm. The right ventricular systolic function is normal. Atria The left atrium size is normal. The right atrium is moderately dilated. Aortic Valve The aortic valve is normal in structure and function. No aortic regurgitation is present. There is no aortic valvular stenosis. Mitral Valve The mitral valve is normal in structure and function. There is no mitral valve regurgitation noted. There is no mitral valve stenosis. Tricuspid Valve The tricuspid valve is normal in structure and function. There is no tricuspid valve regurgitation noted. Pulmonic Valve The pulmonary valve is normal in structure and function. There is no pulmonic valvular regurgitation. Great Vessels The aortic root is normal in size. The IVC is normal in size and collapses >50% with inspiration. Pericardium No pericardial effusion. Conclusion Mild concentric LVH. LVEF is 60-65%. There is normal LV segmental wall motion. The left ventricular diastolic function is normal. The right ventricle is moderately dilated with an RVIDd of 5.0 cm. The aortic valve is normal in structure and function. There is no mitral valve regurgitation noted. No pericardial effusion. DICTATED BY: CAPRI PINTO MD DATE: 06/10/24 0904 REASON: REVERIFICATION OF ET TUBE PLACEMENT. ORDERING PHYSICIAN: BABAR HASSAN CNP PROCEDURE: CXR1VW - CHEST 1VW PORTABLE CHEST RADIOGRAPH INDICATION: REVERIFICATION OF ET TUBE PLACEMENT. COMPARISON: 06/10/2024 at 7:49 AM FINDINGS: Tip of endotracheal tube located 5.4 cm above the kalie. Tip of NG tube within the stomach. Heart size is normal. The pulmonary vascularity and hollis appear normal. No evidence for consolidation. Suspect small layering right greater than left pleural effusions. No pneumothorax detected. IMPRESSION: Tip of NG tube located 5.4 cm above the kalie. Suspect small layering right greater than left pleural effusions. DICTATED BY: LIVIER BA MD DATE: 06/10/2404 REASON: et tube placement verification ORDERING PHYSICIAN: ONEYDA DALEY MD PROCEDURE: CXR1VW - CHEST 1VW FRONTAL CHEST RADIOGRAPH INDICATION: et tube placement verification COMPARISON: 06/02/2024 at 4:34 AM FINDINGS/IMPRESSION: conveyor monitor leads overlie the field of view. Tip of endotracheal tube located 5.5 cm above the kalie. 2 cm advancement would be ideal. Remainder of the study is unchanged. DICTATED BY: LIVIER BA MD DATE: 06/10/24908 REASON: intubated ORDERING PHYSICIAN: BABAR HASSAN CNP PROCEDURE: CXR1VW - CHEST 1VW PORTABLE CHEST RADIOGRAPH INDICATION: intubated COMPARISON: 06/09/2024 FINDINGS/IMPRESSION: conveyor monitor leads overlie the field of view. Stable endotracheal and nasogastric tubes, including tip of endotracheal tube located 5.6 cm above the kalie. Stable heart size and favorable decrease in right lung airspace disease, without pneumothorax. DICTATED BY: LIVIER BA MD DATE: 06/10/2449 REASON: Decreased renal function ORDERING PHYSICIAN: FRANSISCO ALVARADO PROCEDURE: RENAL - US RENAL SONOGRAM Exam: Renal and bladder sonogram Reason: Renal failure. FINDINGS: Right kidney is 12.4 x 7.2 x 7.1 cm, left 11.0 x 6.2 x 7.0 cm. There is no mass, stone or hydronephrosis. Cortical thickness is preserved however there is increased echogenicity consistent with a component of chronic renal disease. There is a Dykes catheter in a nondistended urinary bladder. IMPRESSION: 1. Echogenic kidneys consistent with chronic renal disease, size and cortical thickness well preserved. DICTATED BY: DEMETRIUS ALICEA MD DATE: 06/09/24 165 REASON: Hypoxia, intubated ORDERING PHYSICIAN: BABAR HASSAN [employer]ADI[employer] CONVERTER HELPER PROCEDURE: CXR1VW - CHEST 1VW CHEST 1VW REASON: Hypoxia, intubated COMPARISON: 06/08/2024 FINDINGS: Right upper lobe infiltrate persists, there is now patchy infiltrate in the right lower lobe as well. Left lung appears clear. Heart size is normal. ET and NG tubes remain in place. IMPRESSION: 1. Increasing infiltrate in the right lung. 2. ET and NG tubes in good position. DICTATED BY: DEMETRIUS ALICEA MD DATE: 06/09/24 1012 REASON: Seizure ORDERING PHYSICIAN: DALJIT MCDONNELL MD PROCEDURE: HEAD WO - CT HEAD/BRAIN W/O CONTRAST Exam: NONCONTRAST CT BRAIN REASON: Seizure . COMPARISON: None. TECHNIQUE: Images are obtained from vertex to the skull base. The exam was performed without IV contrast. FINDINGS: There is normal appearing brain parenchyma. There are no focal mass lesions. There is is no evidence of intracranial hemorrhage or acute stroke. Ventricles and sulci appear normal. Posterior fossa and brainstem structures are unremarkable. Paranasal sinuses and remaining extracranial soft tissues appear normal as well. IMPRESSION: 1. Normal noncontrast CT brain. CT was performed with one or more following dose reduction techniques: automated exposure control, adjustment of the mA and kv according to patient's size, or use of a iterative reconstruction technique. DICTATED BY: DEMETRIUS ALICEA MD DATE: 06/08/24 0819 REASON: S/P INTUBATION ORDERING PHYSICIAN: DALJIT MCDONNELL MD PROCEDURE: CXR1VW - CHEST 1VW CHEST 1VW REASON: S/P INTUBATION COMPARISON: None. FINDINGS: There is a right upper lobe infiltrate consistent with pneumonia. Lungs are otherwise clear. Heart size is normal with no vascular congestion. There is an ET tube with tip in good position at midclavicular point, 4 cm above the kalie. There is an NG tube in the stomach. IMPRESSION: 1. Right upper lobe infiltrate consistent with pneumonia. 2. ET and NG tubes in good position. DICTATED BY: DEMETRIUS ALICEA MD DATE: 06/08/24 0844 ASSESSMENT: Hyperkalemia Acute renal failure Postictal Acute metabolic encephalopathy Acute hypoxic respiratory failure Intubated in ED on 06/08 given lethargy to save airway Bilateral upper lobe opacity concerning for aspiration pneumonitis versus community acquired pneumonia Sepsis without septic shock High anion gap metabolic acidosis- resolved Leukocytosis with left shift Hyperglycemia History of seizures, vaping, former cocaine abuse PLAN: Labs, diagnostic, radiologic exams reviewed and interpreted by myself and super vising physician. We have reviewed external records in detail There is no need for renal replacement therapy We will continue to monitor intake and output. Replace electrolytes as needed. Please renally adjust medications Require close monitoring of renal function and electrolytes Order CBC, CMP, uric acid, and electrolytes in am Continue with renally dosed antibiotics IV pressors as needed Monitor blood pressure adjust medication doses as needed Avoid hypotensive episodes May use Dilaudid 0.5 mg IV every 6 hours as needed for severe pain Monitor blood sugars Strict intake, output, and daily weight should be monitored Please renally adjust medications Avoid nephrotoxic and nonsteroidal drugs Avoid contrast if possible Will continue to monitor renal function, anemia, electrolytes Treatment plan discussed with patient Questions were answered We have discussed with the other team physicians in detail about the care plan We will continue to monitor the patient closely Total critical care time spent with patient, nursing staff, critical care team over 35 minutes ATTESTATION BY PHYSICIAN I have seen and examined the patient. I reviewed the documentation, medical decision making, and treatment plan as noted by the mid-level provider above. I agree with the findings and plan of care. ASHWINI BANDA MD, [facility] Jun 11, 2024 11:58
--- NOTE | 2024-06-11 12:26 | HMCIMG ---
MR BRAIN WWO CON REASON: seizures COMPARISON: There are no prior MRI scans available for comparison. TECHNIQUE: Routine cerebral imaging protocol was performed. Images are also obtained pre and post gadolinium contrast infusion. CONTRAST: Clariscan 10 cc FINDINGS: There is normal appearing brain parenchyma. There are no focal mass lesions. There are no areas of abnormal contrast enhancement or abnormal signal intensity. Ventricles and sulci appear normal. Posterior fossa and brainstem structures appear unremarkable. There is no evidence of intracranial hemorrhage. Diffusion-weighted images are negative for an acute ischemic process. There are no abnormal fluid collections. Extracranial soft tissues appear normal as well. IMPRESSION: 1. Normal pre and postcontrast MRI of the brain.
[2024-06-11] MEDS: BENZOCAINE 20% 57 GM SPRAY TP SCH (12:45)
--- NOTE | 2024-06-11 14:20 | NUR ---
Bilateral tenderness report to critical care provider; new order given and carried out.
--- NOTE | 2024-06-11 15:45 | NUR ---
Report given to nurse Cox
--- NOTE | 2024-06-11 17:01 | HMCIMG ---
US VENOUS DOPPLER BILATERAL REASON: Rule out DVT COMPARISON: None Technique: Bilateral upper extremity venous doppler ultrasound was performed with spectral analysis and color flow imaging technique. FINDINGS: There is normal appearance of the visualized portions of the right subclavian vein. Axillary, brachial, cephalic veins appear unremarkable. There is some thrombus in the basilic vein at the site of an IVC. Left upper extremity shows similar findings, subclavian, axial, brachial and cephalic veins appear widely patent with no thrombus. There are some thrombus in the left basilic vein in the forearm. This also is identified a site. IMPRESSION: 1. Thrombus in both peripheral basilic veins, at IV site. 2. Otherwise normal bilateral upper extremity venous Doppler ultrasound.
[2024-06-11] MEDS ORDERED: COMPOUND IV MISC 1 EACH IVSOLN MISC PRN (20:30)
[2024-06-11] MEDS: diazePAM 5 MG TAB ONE (20:49)
[2024-06-12] VITALS (10 sets, daily range): BP systolic 133–163; BP diastolic 82–95; PULSE 65–86; RESP 18; TEMP 99.1–100.4; O2SAT 92–97
[2024-06-12 04:20] LABS: BASOPHILS # (AUTO) 0.02 K/uL (0.00-0.20); BASOPHILS % (AUTO) 0.2 % (0.0-5.0); EOSINOPHILS # (AUTO) 0.04 K/uL (0.00-0.70); EOSINOPHILS % (AUTO) 0.3 % (0.0-8.0); HEMATOCRIT 36.1 % (42-54); IMMATURE GRANULOCYTE ABSOLUTE 0.13 K/uL (0-1); LYMPHOCYTES # (AUTO) 1.8 K/uL (1.0-4.8); LYMPHOCYTES % (AUTO) 13.4 % (21.0-51.0); MEAN CORPUSCULAR HEMOGLOBIN 31.7 pg (27.0-33.0); MEAN CORPUSCULAR HGB CONC 33.8 g/dL (32.0-36.0); MEAN CORPUSCULAR VOLUME 93.8 fL (79-99); MONOCYTES # (AUTO) 1.2 K/uL (0.1-1.0); NEUTROPHILS % (AUTO) 76.1 % (40.0-77.0); PLATELET COUNT (AUTO) 223 K/uL (130-400); RED BLOOD CELL COUNT(AUTO) 3.85 MIL/uL (4.50-6.20); RED CELL DISTRIBUTION WIDTH 10.8 % (11.0-15.5); WHITE BLOOD COUNT (AUTO) 13.1 K/uL (4.8-10.8)
[2024-06-12 04:34] LABS: ALBUMIN 2.7 g/dL (3.5-5.0); BILIRUBIN,TOTAL 2.1 mg/dL (0.2-1.0); CREATININE 1.6 mg/dL (0.5-1.3); MAGNESIUM 1.4 mg/dL (1.80-2.40); PHOSPHORUS 3.4 mg/dL (2.5-4.9); POTASSIUM 3.4 mmol/L (3.5-5.1); TOTAL PROTEIN, SERUM 6.1 g/dL (6.0-8.3)
[2024-06-12] MEDS: MAGNESIUM 2GM PREMIX 50ML 50 ML IV SCH (05:26)
[2024-06-12] MEDS: PoTASSium chloRIDE 20MEQ ER 20 MEQ ERTAB PO PRN (05:26)
[2024-06-12] MEDS ORDERED: PoTASSium chloRIDE 10MEQ/100ML 100 ML IV PRN (05:30)
[2024-06-12] MEDS ORDERED: PoTASSium chl 10% ELIXIR 20MEQ 20 MEQ/15 ML UDCUP PO PRN (05:30)
--- NOTE | 2024-06-12 06:29 | EKG ---
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 [phone] 2000 Requested By: OLIVIER CASTANO Order Number: [id number] Reading MD: Jessica Gamboa Measurements Intervals [place] Rate: 66 P: 67 FL: 134 QRS: 19 QRSD: 84 T: 128 QT: 460 QTc: 482 Interpretive Statements Normal sinus rhythm with sinus arrhythmia T wave abnormality, consider lateral ischemia Prolonged QT Compared to ECG 06/08/2024 05:48:14 T-wave abnormality now present Prolonged QT interval now present Sinus tachycardia no longer present Early repolarization no longer present ST (T wave) deviation no longer present Possible ischemia still present Electronically Signed On 06-13-2024 11:34:19 FOOD WRITER by Jessica Gamboa Please click the below link to view image of tracing.
[2024-06-12 08:10] LABS: ANTI-SCLERODERMA 70 <0.2 AI (0.0-0.9)
[2024-06-12] MEDS: FAMOTIDINE 20MG TAB PO SCH (09:42)
[2024-06-12] MEDS: leveTIRACEtam 500 MG TABLET PO SCH (09:42)
[2024-06-12] MEDS: levoFLOXacin 750 MG TABLET PO SCH (09:42)
[2024-06-12] MEDS: metRONIDazole 500 MG TABLET PO SCH (09:43)
--- NOTE | 2024-06-12 10:03 | PN ---
NEPHROLOGY PROGRESS NOTE Date/Time Patient Seen: Jun 12, 2024 SUBJECTIVE: This is a 23-year-old male with a past medical history of seizures, former cocaine abuse, current marijuana use, and vaping. He presented to the emergency room with complaints of seizures. According to family patient has been noncompliant with seizure medications. UDS was positive for marijuana. Chest x-ray on admission showed right upper lobe infiltrate consistent with pneumonia. He has been started on Solu-Medrol for pneumonia. CT of head was normal. Continues on Keppra for seizures Blood cultures has been negative Continues on antibiotics He has been extubated and transferred to the medical floor MRI of the brain was normal. He was noted to have elevated BUN/creatinine and hyperkalemia. We have been consulted for renal failure. Renal function is improving Electrolytes are stable Renal ultrasound was noted Continues with good urine output Pending Cardiology recommendations Repeat UA was negative for proteinuria He was seen in the medical floor, in no acute distress REVIEW OF SYSTEMS: GENERAL: Negative for any nausea, vomiting, fevers, chills, or weight loss. NEUROLOGIC: Negative for any blurry vision, blind spots, double vision, facial asymmetry, dysphagia, dysarthria, hemiparesis, hemisensory deficits, vertigo, ataxia. HEENT: Negative for any head trauma, neck trauma, neck stiffness, photophobia, phonophobia, sinusitis, rhinitis. CARDIAC: Negative for any chest pain, dyspnea on exertion, paroxysmal nocturnal dyspnea, peripheral edema. PULMONARY: Negative for any shortness of breath, wheezing, COPD, or TB exposure. GASTROINTESTINAL: Negative for any abdominal pain, nausea, vomiting, bright red blood per rectum, melena. GENITOURINARY: Negative for any dysuria, hematuria, incontinence. INTEGUMENTARY: Negative for any rashes, cuts, insect bites. RHEUMATOLOGIC: Negative for any joint pains, photosensitive rashes, history of v asculitis or kidney problems. HEMATOLOGIC: Negative for any abnormal bruising, frequent infections or bleeding. PHYSICAL EXAM: GENERAL: Pale, acutely ill female, lethargic, no acute distress. Well-nourished. EYES: EOMI. Anicteric. HENT: Moist mucous membranes. No scleral icterus. No cervical lymphadenopathy. LUNGS: Clear to auscultation bilaterally. No accessory muscle use. CARDIOVASCULAR: Regular rate and rhythm. No murmur. No JVD. ABDOMEN: Soft, non-tender and non-distended. No palpable masses. EXTREMITIES: No edema. Non-tender. SKIN: No rashes or lesions. Warm. NEUROLOGIC: No focal neurological deficits. CN II-XII grossly intact, but not individually tested. PSYCHIATRIC: Cooperative. Appropriate mood and affect. LABORATORY: [ ] Hematology Labs: Test 06/12/24 04:09 Range/Units White Blood Count 13.1 H 4.8-10.8 K/uL Red Blood Count 3.85 L 4.50-6.20 MIL/uL Hemoglobin 12.2 L 14.0-18.0 g/dL Hematocrit 36.1 L 42-54 % Mean Corpuscular Volume 93.8 79-99 fL Mean Corpuscular Hemoglobin 31.7 27.0-33.0 pg Mean Corpuscular Hemoglobin Concent 33.8 32.0-36.0 g/dL Red Cell Distribution Width 10.8 L 11.0-15.5 % Platelet Count 223 130-400 K/uL Mean Platelet Volume 9.3 7.5-10.5 fL Immature Granulocyte % (Auto) 1.0 0-1 % Neutrophils (%) (Auto) 76.1 40.0-77.0 % Lymphocytes (%) (Auto) 13.4 L 21.0-51.0 % Monocytes (%) (Auto) 9.0 3.0-13.0 % Eosinophils (%) (Auto) 0.3 0.0-8.0 % Basophils (%) (Auto) 0.2 0.0-5.0 % Neutrophils # (Auto) 10.0 H 1.8-7.7 K/uL Lymphocytes # (Auto) 1.8 1.0-4.8 K/uL Monocytes # (Auto) 1.2 H 0.1-1.0 K/uL Eosinophils # (Auto) 0.04 0.00-0.70 K/uL Basophils # (Auto) 0.02 0.00-0.20 K/uL Absolute Immature Granulocyte (auto 0.13 0-1 K/uL Nucleated Red Blood Cells 0.0 0.0-0.19 % Chemistry Labs: Test 06/12/24 07:23 06/12/24 04:09 06/11/24 03:48 06/10/24 23:12 Range/Units Troponin I High Sensitivity 454 *H 4-75 ng/L Sodium Level 139 136-145 mmol/L Potassium Level 3.4 L 3.5-5.1 mmol/L Chloride Level 102 101-111 mmol/L Carbon Dioxide Level 34 H 21-32 mmol/L Blood Urea Nitrogen 23 H 7-18 mg/dL Creatinine 1.6 H 0.5-1.3 mg/dL Glomerular Filtration Rate Calc 61 >90 mL/min Random Glucose 99 70-105 mg/dL Total Calcium 8.4 L 8.5-10.1 mg/dL Phosphorus Level 3.4 2.5-4.9 mg/dL Magnesium Level 1.40 L 1.80-2.40 mg/dL Total Bilirubin 2.1 H 0.2-1.0 mg/dL Aspartate Amino Transf (AST/SGOT) 37 10-37 U/L Alanine Aminotransferase (ALT/SGPT) 24 12-78 U/L Alkaline Phosphatase 59 50-136 U/L Total Protein 6.1 6.0-8.3 g/dL Albumin 2.7 L 3.5-5.0 g/dL Uric Acid 3.8 2.6-7.2 mg/dL Whole Blood Glucose 111 H 70-110 MG/DL DIAGNOSTICS / RADIOLOGY: REASON: Rule out DVT ORDERING PHYSICIAN: BABAR HASSAN CNP PROCEDURE: VENOUS NANCY - US VENOUS DOPPLER BILATERAL US VENOUS DOPPLER BILATERAL REASON: Rule out DVT COMPARISON: None Technique: Bilateral upper extremity venous doppler ultrasound was performed with spectral analysis and color flow imaging technique. FINDINGS: There is normal appearance of the visualized portions of the right subclavian vein. Axillary, brachial, cephalic veins appear unremarkable. There is some thrombus in the basilic vein at the site of an IVC. Left upper extremity shows similar findings, subclavian, axial, brachial and cephalic veins appear widely patent with no thrombus. There are some thrombus in the left basilic vein in the forearm. This also is identified a site. IMPRESSION: 1. Thrombus in both peripheral basilic veins, at IV site. 2. Otherwise normal bilateral upper extremity venous Doppler ultrasound. DICTATED BY: DEMETRIUS ALICEA MD DATE: 06/11/24 0835 REASON: seizures ORDERING PHYSICIAN: SIDDHARTHA GOMEZ MD PROCEDURE: BRAIN WWO - MR BRAIN WWO CON MR BRAIN WWO CON REASON: seizures COMPARISON: There are no prior MRI scans available for comparison. TECHNIQUE: Routine cerebral imaging protocol was performed. Images are also obtained pre and post gadolinium contrast infusion. CONTRAST: Clariscan 10 cc FINDINGS: There is normal appearing brain parenchyma. There are no focal mass lesions. There are no areas of abnormal contrast enhancement or abnormal signal intensity. Ventricles and sulci appear normal. Posterior fossa and brainstem structures appear unremarkable. There is no evidence of intracranial hemorrhage. Diffusion-weighted images are negative for an acute ischemic process. There are no abnormal fluid collections. Extracranial soft tissues appear normal as well. IMPRESSION: 1. Normal pre and postcontrast MRI of the brain. DICTATED BY: DEMETRIUS ALICEA MD DATE: 06/11/24 1223 REASON: hypoxia ORDERING PHYSICIAN: BABAR HASSAN CNP PROCEDURE: CXR1VW - CHEST 1VW CHEST 1VW REASON: hypoxia COMPARISON: None. FINDINGS: There are increasing perihilar infiltrates more pronounced on the right than the left. These could represent pneumonia or edema. Lungs are otherwise clear. Heart size is normal. Mediastinum and bony thorax appear unremarkable. ET and NG tubes have been removed. IMPRESSION: 1. Increasing perihilar infiltrates which could be pneumonia or edema. DICTATED BY: DEMETRIUS ALICEA MD DATE: 06/11/24 1046 REASON: evaluate systolic and valve function ORDERING PHYSICIAN: BABAR HASSAN CNP PROCEDURE: ECHO CMP - ECHO 2-D COMPLETE APPROVED REPORT EXAM: Two-dimensional and M-mode echocardiogram with Doppler and color Doppler. INDICATION ICD: Assess LV Function 2D Dimensions RVDd 5.0 cm LVEF(%) 66.4 (>50%) LVED Vol(simp.) 173.0 mL IVSd 1.1 (0.7-1.1cm) FS(%) 37 % LVES Vol(simp.) 61.8 mL LVDd 5.4 (3.8-5.6cm) LA (2D) 3.6 (1.6-4.0cm) LVEF(%, simp.) 64 % PWd 1.2 (0.7-1.1cm) Ao Root(2D) 3.3 (2.0-3.7cm) LA ESV INDEX (4CH) 32.10 mL/m2 IVSs 1.3 cm LVOT diam 2.3 (1.8-2.4cm) LA ESV INDEX (2CH) 32.10 mL/m2 LVDs 3.4 (2.5-4.0cm) LA ESV INDEX (BP) 32.90 mL/m2 PWs 1.7 cm M-Mode Dimensions EPSS 1.5 cm LA (MM) 3.7 (1.6-4.0cm) Ao Root(MM) 3.1 (2.0-3.7cm) Aortic Valve AoV VTI 0.4 m Ao Mean GR 10.0 mmHg LVOT VTI 0.28 m LUCERO (VMAX) 3.2 cm2 LUCERO (VTI) 3.2 cm2 Mitral Valve MV E Vmax 111.6 cm/s DECEL Time 187 ms MV A Vmax 73.2 cm/s P 1/2 T 57 ms E/A ratio 1.5 MVA (PHT) 3.9 cm2 TDI E/E' Medial 11.7 E/E' Lateral 10.9 Medial E' Peak V 9.50 cm/s Lateral E' Peak V 10.20 cm/s Left Ventricle The left ventricle structure and function is normal. There is normal LV segmental wall motion. Mild concentric LVH. LVEF is 60-65%. The left ventricular diastolic function is normal. Right Ventricle The right ventricle is moderately dilated with an RVIDd of 5.0 cm. The right ventricular systolic function is normal. Atria The left atrium size is normal. The right atrium is moderately dilated. Aortic Valve The aortic valve is normal in structure and function. No aortic regurgitation is present. There is no aortic valvular stenosis. Mitral Valve The mitral valve is normal in structure and function. There is no mitral valve regurgitation noted. There is no mitral valve stenosis. Tricuspid Valve The tricuspid valve is normal in structure and function. There is no tricuspid valve regurgitation noted. Pulmonic Valve The pulmonary valve is normal in structure and function. There is no pulmonic valvular regurgitation. Great Vessels The aortic root is normal in size. The IVC is normal in size and collapses >50% with inspiration. Pericardium No pericardial effusion. Conclusion Mild concentric LVH. LVEF is 60-65%. There is normal LV segmental wall motion. The left ventricular diastolic function is normal. The right ventricle is moderately dilated with an RVIDd of 5.0 cm. The aortic valve is normal in structure and function. There is no mitral valve regurgitation noted. No pericardial effusion. DICTATED BY: CAPRI PINTO MD DATE: 06/10/24903 REASON: REVERIFICATION OF ET TUBE PLACEMENT. ORDERING PHYSICIAN: BABAR HASSAN [facility] PROCEDURE: CXR1VW - CHEST 1VW PORTABLE CHEST RADIOGRAPH INDICATION: REVERIFICATION OF ET TUBE PLACEMENT. COMPARISON: 06/10/2024 at 7:49 AM FINDINGS: Tip of endotracheal tube located 5.4 cm above the kalie. Tip of NG tube within the stomach. Heart size is normal. The pulmonary vascularity and hollis appear normal. No evidence for consolidation. Suspect small layering right greater than left pleural effusions. No pneumothorax detected. IMPRESSION: Tip of NG tube located 5.4 cm above the kalie. Suspect small layering right greater than left pleural effusions. DICTATED BY: LIVIER BA MD DATE: 06/10/24903 REASON: et tube placement verification ORDERING PHYSICIAN: ONEYDA DALEY MD PROCEDURE: CXR1VW - CHEST 1VW FRONTAL CHEST RADIOGRAPH INDICATION: et tube placement verification COMPARISON: 06/02/2024 at 4:34 AM FINDINGS/IMPRESSION: alarm security or surveillance monitor leads overlie the field of view. Tip of endotracheal tube located 5.5 cm above the kalie. 2 cm advancement would be ideal. Remainder of the study is unchanged. DICTATED BY: LIVIER BA MD DATE: 06/10/24908 REASON: intubated ORDERING PHYSICIAN: BABAR HASSAN [facility] PROCEDURE: CXR1VW - CHEST 1VW PORTABLE CHEST RADIOGRAPH INDICATION: intubated COMPARISON: 06/09/2024 FINDINGS/IMPRESSION: alarm security or surveillance monitor leads overlie the field of view. Stable endotracheal and nasogastric tubes, including tip of endotracheal tube located 5.6 cm above the kalie. Stable heart size and favorable decrease in right lung airspace disease, without pneumothorax. DICTATED BY: LIVIER BA MD DATE: 06/10/24948 REASON: Decreased renal function ORDERING PHYSICIAN: FRANSISCO ALVARADO PROCEDURE: RENAL - US RENAL SONOGRAM Exam: Renal and bladder sonogram Reason: Renal failure. FINDINGS: Right kidney is 12.4 x 7.2 x 7.1 cm, left 11.0 x 6.2 x 7.0 cm. There is no mass, stone or hydronephrosis. Cortical thickness is preserved however there is increased echogenicity consistent with a component of chronic renal disease. There is a Dykes catheter in a nondistended urinary bladder. IMPRESSION: 1. Echogenic kidneys consistent with chronic renal disease, size and cortical thickness well preserved. DICTATED BY: DEMETRIUS ALICEA MD DATE: 06/09/24 1652 REASON: Hypoxia, intubated ORDERING PHYSICIAN: BABAR HASSAN CNP PROCEDURE: CXR1VW - CHEST 1VW CHEST 1VW REASON: Hypoxia, intubated COMPARISON: 06/08/2024 FINDINGS: Right upper lobe infiltrate persists, there is now patchy infiltrate in the right lower lobe as well. Left lung appears clear. Heart size is normal. ET and NG tubes remain in place. IMPRESSION: 1. Increasing infiltrate in the right lung. 2. ET and NG tubes in good position. DICTATED BY: DEMETRIUS ALICEA MD DATE: 06/09/24 1012 REASON: Seizure ORDERING PHYSICIAN: DALJIT MCDONNELL MD PROCEDURE: HEAD WO - CT HEAD/BRAIN W/O CONTRAST Exam: NONCONTRAST CT BRAIN REASON: Seizure . COMPARISON: None. TECHNIQUE: Images are obtained from vertex to the skull base. The exam was performed without IV contrast. FINDINGS: There is normal appearing brain parenchyma. There are no focal mass lesions. There is is no evidence of intracranial hemorrhage or acute stroke. Ventricles and sulci appear normal. Posterior fossa and brainstem structures are unremarkable. Paranasal sinuses and remaining extracranial soft tissues appear normal as well. IMPRESSION: 1. Normal noncontrast CT brain. CT was performed with one or more following dose reduction techniques: automated exposure control, adjustment of the mA and kv according to patient's size, or use of a iterative reconstruction technique. DICTATED BY: DEMETRIUS ALICEA MD DATE: 06/08/24 0819 REASON: S/P INTUBATION ORDERING PHYSICIAN: DALJIT MCDONNELL MD PROCEDURE: CXR1VW - CHEST 1VW CHEST 1VW REASON: S/P INTUBATION COMPARISON: None. FINDINGS: There is a right upper lobe infiltrate consistent with pneumonia. Lungs are otherwise clear. Heart size is normal with no vascular congestion. There is an ET tube with tip in good position at midclavicular point, 4 cm above the kalie. There is an NG tube in the stomach. IMPRESSION: 1. Right upper lobe infiltrate consistent with pneumonia. 2. ET and NG tubes in good position. DICTATED BY: DEMETRIUS ALICEA MD DATE: 06/08/24 0844 ASSESSMENT: Hyperkalemia Acute renal failure Postictal Acute metabolic encephalopathy Acute hypoxic respiratory failure Intubated in ED on 06/08 given lethargy to save airway Bilateral upper lobe opacity concerning for aspiration pneumonitis versus community acquired pneumonia Sepsis without septic shock High anion gap metabolic acidosis- resolved Leukocytosis with left shift Hyperglycemia History of seizures, vaping, former cocaine abuse PLAN: Labs, diagnostic, radiologic exams reviewed and interpreted by myself and supervising physician. We have reviewed external records in detail There is no need for renal replacement therapy Pending Cardiology recommendations We will continue to monitor intake and output. Replace electrolytes as needed. Please renally adjust medications Require close monitoring of renal function and electrolytes Order CBC, CMP, uric acid, and electrolytes in am Continue with renally dosed antibiotics IV pressors as needed Monitor blood pressure adjust medication doses as needed Avoid hypotensive episodes May use Dilaudid 0.5 mg IV every 6 hours as needed for severe pain Monitor blood sugars Strict intake, output, and daily weight should be monitored Please renally adjust medications Avoid nephrotoxic and nonsteroidal drugs Avoid contrast if possible Will continue to monitor renal function, anemia, electrolytes Treatment plan discussed with patient Questions were answered We have discussed with the other team physicians in detail about the care plan We will continue to monitor the patient closely ATTESTATION BY PHYSICIAN I have seen and examined the patient. I reviewed the documentation, medical decision making, and treatment plan as noted by the mid-level provider above. I agree with the findings and plan of care. ASHWINI BANDA MD, [facility] Jun 12, 2024 10:03
--- NOTE | 2024-06-12 10:23 | PN ---
[facility] PROGRESS NOTE Date Patient Seen: Jun 12, 2024 Time of Visit: 10:22 Supervising Physician: Dr. Shaw Primary Care Physician: Never seen a PCP Outpatient Specialists: [facility] Inpatient Consults: Dr. Ventura, PROBLEM LIST: Postictal- resolved Acute metabolic encephalopathy secondary to above - resolved Acute hypoxic respiratory failure Intubated in ED on 06/08 given lethargy to save airway Extubated on 06/10 Left arm phlebitis- negative for DVT Acute renal failure secondary to ATN from sepsis Bilateral upper lobe opacity concerning for aspiration pneumonitis versus community acquired pneumonia Sepsis without septic shock- resolved High anion gap metabolic acidosis- resolved Leukocytosis with left shift Hyperglycemia History of seizures, vaping, former cocaine abuse INTERVAL HISTORY: 06/09 patient remains intubated on mechanical ventilator with ACVC 16/450/8/45%. His ABG this morning with the pH 7.28 pCO2 44 PO2 of 136 bicarb of 20, O2 sat is 98%. Base excess-6.2. His lactic acid is down to 1.5. His potassium is 5.2 bicarb is 25 up from 12. Creatinine though went up to 3.8 from 1.4. We will give IVF NS bolus this morning and continue with IV maintenance. Repeat BMP levels in the afternoon. we can send sputum culture. Chest x-ray this morning is with manifestation of opacity bilaterally. Continue with Zosyn and start patient on doxycycline. MRSA is negative. Flu and COVID are negative. Otherwise no event overnight. Continue with the anti epileptic drug of choice with Keppra, neurology is following. EEG pending. Continue to wean down sedation as tolerated, now on versed, propofol, and fentanyl. may not be candidate for SBT 06/10 patient had episodes of severe agitation this morning after he was given sedation holiday inadvertently from inadequate IV access. We gave him anx iolytic Geodon. At the moment, patient is resting , Vital signs blood pressure 136/76 map is 96. Heart rate is 77 and T-max 99.0. He is on ACVC 16/450/5/40%. ABG this morning with the pH 7.24, pCO2 44, PO2 103 bicarb is 18.6 base excess- 8.5. His serum bicarb is 23 potassium is 5.5 and creatinine is down to 4.3 from 4.4. Patient has no anion gap metabolic acidosis. We will start patient on bicarb drip given refractory acidosis. Patient has no diarrhea. He has put out better urine output at 2.5L. Balance positive 5.5 L. continue to monitor I/O very closely. Liver function is normal. Culture negative to date. Continue current antibiotic. Continue with current sedation fentanyl, Versed. Start Precedex if tolerated. SBT when patient is following commands appropriately. 06/11 patient has been extubated yesterday, now he is on Oxymizer at 15 L. Saturation oxygen is 94%. Continue to wean down O2 as tolerated, keep sat >92%. Patient has fever this morning with T Max is 101.7. We will obtain blood cu lture. Send UA. Can discontinue Dykes catheter. Patient has phlebitis in the left arm, avoid using this arm for blood pressure measurement. Keep it elevated. Warm compresses. Remove IV from left arm. This morning with WBC 14.5 down from 14.6. Continue antibiotics: cefepime, doxy, and flagyl. Obtain chest xray . Hemoglobin is 12.1. Chemistry with bicarb 31. Sodium 146. BUN is 34 this is down from 46 and creatinine is 2.6 this is down from 4.3. Patient has put out 4.3 L of urine output with -300 cc balance. Liver function with total bilirubin of 1.3 this is up from 0.7 yesterday AST and ALT are within normal limits. Avoid hepatotoxin drugs. 06/12 patient is awake alert oriented x3 lying down in bed not in acute distress, has been downgraded to PCU now only on 2 L nasal cannula. Saturation on oxygen is 92 to 97%. Continue to wean off oxygen as tolerated to keep sats more than 92%. Otherwise patient had fever last night 100.8. However, WBC is 13 down from 14 hemoglobin stable at 12.2. His chemistry with creatinine down to 1.6 from 2.6 and he has put out 3.5 L of urine output with balance negative 1.5 L. his LFT though with total bilirubin up to 2.1 from 1.3 AST and ALT are normal. Patient had elevated troponin at 450. EKG with no ST elevation, ca rdiology has been consulted per primary. Otherwise we can decrease nebulizer. Discontinue steroid. If no intervention from Cardiology we can downgrade patient to medical-surgical. REVIEW OF SYSTEMS: 12 point ROS reviewed with patient. Pertinent positives mentioned above. Otherwise negative. PHYSICAL EXAM: GENERAL: AAOX3, appropriate. HEENT: EOMI, Sclera non icteric, moist mucosa NECK: Supple, no JVD, trachea midline LUNGS: Rales on upper lobes. No wheezing. HEART: Regular rate and rhythm. Normal S1 and S2, without murmurs ABD: Abdomen soft, nontender. Bowel sounds present EXT: No clubbing cyanosis or edema NEURO: no unilateral weakness. Vital Signs (last 8hr) Date Time Temp Pulse Resp B/P (MAP) Pulse Ox O2 Delivery O2 Flow Rate FiO2 06/12/24 09:00 92 Nasal Cannula* 2 N/A Aerosol Mask+ 06/12/24 07:33 99.1 71 18 133/95 97 Nasal Cannula 2.0 06/12/24 07:03 18 N/Cannula Low lpm 2.0 28 06/12/24 07:03 65 18 06/12/24 03:29 99.1 80 18 158/90 95 Nasal Cannula LABS: Hematology Labs: Test 06/12/24 04:09 Range/Units White Blood Count 13.1 H 4.8-10.8 K/uL Red Blood Count 3.85 L 4.50-6.20 MIL/uL Hemoglobin 12.2 L 14.0-18.0 g/dL Hematocrit 36.1 L 42-54 % Mean Corpuscular Volume 93.8 79-99 fL Mean Corpuscular Hemoglobin 31.7 27.0-33.0 pg Mean Corpuscular Hemoglobin Concent 33.8 32.0-36.0 g/dL Red Cell Distribution Width 10.8 L 11.0-15.5 % Platelet Count 223 130-400 K/uL Mean Platelet Volume 9.3 7.5-10.5 fL Immature Granulocyte % (Auto) 1.0 0-1 % Neutrophils (%) (Auto) 76.1 40.0-77.0 % Lymphocytes (%) (Auto) 13.4 L 21.0-51.0 % Monocytes (%) (Auto) 9.0 3.0-13.0 % Eosinophils (%) (Auto) 0.3 0.0-8.0 % Basophils (%) (Auto) 0.2 0.0-5.0 % Neutrophils # (Auto) 10.0 H 1.8-7.7 K/uL Lymphocytes # (Auto) 1.8 1.0-4.8 K/uL Monocytes # (Auto) 1.2 H 0.1-1.0 K/uL Eosinophils # (Auto) 0.04 0.00-0.70 K/uL Basophils # (Auto) 0.02 0.00-0.20 K/uL Absolute Immature Granulocyte (auto 0.13 0-1 K/uL Nucleated Red Blood Cells 0.0 0.0-0.19 % Chemistry Labs: Test 06/12/24 07:23 06/12/24 04:09 06/11/24 03:48 06/10/24 23:12 Range/Units Troponin I High Sensitivity 454 *H 4-75 ng/L Sodium Level 139 136-145 mmol/L Potassium Level 3.4 L 3.5-5.1 mmol/L Chloride Level 102 101-111 mmol/L Carbon Dioxide Level 34 H 21-32 mmol/L Blood Urea Nitrogen 23 H 7-18 mg/dL Creatinine 1.6 H 0.5-1.3 mg/dL Glomerular Filtration Rate Calc 61 >90 mL/min Random Glucose 99 70-105 mg/dL Total Calcium 8.4 L 8.5-10.1 mg/dL Phosphorus Level 3.4 2.5-4.9 mg/dL Magnesium Level 1.40 L 1.80-2.40 mg/dL Total Bilirubin 2.1 H 0.2-1.0 mg/dL Aspartate Amino Transf (AST/SGOT) 37 10-37 U/L Alanine Aminotransferase (ALT/SGPT) 24 12-78 U/L Alkaline Phosphatase 59 50-136 U/L Total Protein 6.1 6.0-8.3 g/dL Albumin 2.7 L 3.5-5.0 g/dL Uric Acid 3.8 2.6-7.2 mg/dL Whole Blood Glucose 111 H 70-110 MG/DL DIAGNOSTICS / RADIOLOGY RESULTS: [ ] PLAN NEURO: Minimize central acting medications as possible. Maintain fall precautions, adequate lighting during the day PULMONARY: Supplemental 02 as needed. Maintain aspiration precautions at all times CARDIOVASCULAR: Follow hemodynamics. Vital signs per facility protocol GI & NUTRITION: Continue with nutritional support. Continue stool softeners and laxatives as needed. KIDNEYS & ELECTROLYTES: Strict monitoring of intake, output and overall fluid balance. Avoid nephrotoxic medications to the extent possible. Medications to be dosed according to renal function. Monitor electrolytes and replace as needed ENDOCRINE: Maintain blood glucose between 100-180 at all times. Hypoglycemia protocol in place INFECTIOUS DISEASE: Trend temperature, WBC and procalcitonin level Follow cultures, deescalate antibiotics as soon as possible. Panculture if new onset fever ONCOLOGY/HEMATOLOGY/COAGULATION: Monitor for s/s of bleeding Monitor hemoglobin, coagulation studies as needed SKIN: Pressure ulcer prevention per facility protocol Specialty mattress ORTHO/REHAB: Continue PT/OT Prophylaxis: Continue GI and DVT prophylaxis Code Status: Full Resuscitation Disposition: TBD Other: Total patient care time exceeds 35 minutes excluding all procedures. BABAR HASSAN [employer] Jun 12, 2024 10:23
[2024-06-12] MEDS: ceFEPime HCL 2 GM VIAL IVPB SCH (10:40)
--- NOTE | 2024-06-12 10:48 | PN ---
[facility] PROGRESS NOTE Date of Service: Jun 12, 2024 Time of Service: 10:37 SUBJECTIVE: 06/09 patient seen at bedside, no acute events overnight. He remains intubated and sedated. He is currently on an FiO2 of 40% with a tidal volume of 450 and a PEEP of 8, saturating at 100%. We will decrease PEEP down to 5 and continue to monitor. According to ventilator settings he may be a good candidate for extubation, we will defer to critical Care for extubation. Patient did have a sedation vacation however he was unmanageable and had to be sedated again, we will repeat tomorrow in an attempt to try to extubate. His creatinine increased from 1.4 up to 3.8, he has not been running any start him on normal saline at 180 cc/hour and continue to monitor urine output. He is likely a little bit dehydrated due to being NPO for prolonged period of time. He has been assessed by Neurology who adjusted his Keppra to a 1000 mg twice daily and they recommended MRI. He will likely get the MRI once he has been extubated. EEG is also pending, we will follow up. Blood cultures are no growth to date, urine culture is still pending. Urine tox positive for marijuana no other substances. 06/10 patient seen at bedside, no acute events overnight. He remains intubated and sedated. Every time sedation is weaned he becomes agitated and began pulling at all his lines, he is sedated once again. We will defer to critical Care for extubation. Patient showing proteinuria and glucosuria which is not normal for a young male his age. He has no history of diabetes. We will initiate further workup to discover the source of his proteinuria. We will order an JORDANA with reflex, p-ANCA and C ANCA and IgA. We will also order an HIV panel and follow up. Creatinine peaked at 4.4 before trending down to 4.3 today, he has adequate urine output with a proximally 2 L in the last 24 hours. Remaining vitals and labs are relatively unremarkable. He has been started on tube feeds and we will continue until he is extubated. 06/11 patient seen at bedside, no acute events overnight. He was successfully extubated and is currently saturating well on 2 L nasal cannula. HIV panel was negative, autoimmune workup is still pending for his proteinuria. We will follow up with Nephrology recommendations. WBC stable at 14.5, similar to yesterday, sodium improved, creatinine improved from 4.3 down to 2.6, remainder of his labs are relatively unremarkable. Repeat UA today showed resolution of proteinuria and glucosuria, given these findings the proteinuria was likely acute in temporary in nature. MRI of brain is still pending, we will follow up 06/12 patient seen at bedside, he has had low-grade fevers overnight. Patient has difficult stick we will place a midline to resume his IV antibiotics. In the meantime have transitioned most of his antibiotics to p.o. except for cefepime. Patient also noted to have T wave changes on his EKG and troponin was ordered noted to be elevated in the 400s. We will consult Cardiology for recommendations. The patient's autoimmune panel showed a positive JORDANA and anti- SSA/Ro antibody with a decreased C4 normal C3 complement which is concerning for possible underlying autoimmune disease. Given the constellation of symptoms with seizures and markers of stress on the heart is in an otherwise healthy young male this is concerning for an autoimmune vasculitis or mixed connective tissue disease. We will order an ESR and CRP to assess for underlying inflammation and continue with systemic steroids at this point. REVIEW OF SYSTEMS 12 point ROS negative unless noted in HPI PHYSICAL EXAM GENERAL APPEARANCE: The patient is awake, alert, and oriented, in no acute cardiopulmonary distress. NEUROLOGICAL: Cranial nerves II-XII grossly intact. Motor is 5/5 in bilateral upper and lower extremities proximal to distal. No sensory deficits. HEENT: Face is symmetric. Pupils are equal and reactive. Extraocular movements are intact. NECK: Supple. No JVD. No thyromegaly. No submental, submandibular, pre- /postauricular, occipital or supraclavicular lymphadenopathy. CHEST: Normal chest expansion. No Telemetry. LUNGS: Absence of any rales, rhonchi or any wheezing. CARDIOVASCULAR: Regular. S1 and S2 normal. No appreciable rubs, murmurs or gallops. ABDOMEN: Soft, nontender, and nondistended. There is no rebound, voluntary guarding, or rigidity. : Deferred. No Dykes. EXTREMITIES: Non-edematous and not cyanotic. No clubbing. Good capillary refill. SKIN: No skin breakdown. Vital Signs (last 8hr) Date Time Temp Pulse Resp B/P (MAP) Pulse Ox O2 Delivery O2 Flow Rate FiO2 06/12/24 09:00 92 Nasal Cannula* 2 N/A Aerosol Mask+ 06/12/24 07:33 99.1 71 18 133/95 97 Nasal Cannula 2.0 06/12/24 07:03 18 N/Cannula Low lpm 2.0 28 06/12/24 07:03 65 18 06/12/24 03:29 99.1 80 18 158/90 95 Nasal Cannula LABS: Laboratory: Test 06/12/24 07:23 06/12/24 04:09 06/11/24 09:49 06/11/24 03:48 Range/Units Troponin I High Sensitivity 454 *H 4-75 ng/L White Blood Count 13.1 H 4.8-10.8 K/uL Red Blood Count 3.85 L 4.50-6.20 MIL/uL Hemoglobin 12.2 L 14.0-18.0 g/dL Hematocrit 36.1 L 42-54 % Mean Corpuscular Volume 93.8 79-99 fL Mean Corpuscular Hemoglobin 31.7 27.0-33.0 pg Mean Corpuscular Hemoglobin Concent 33.8 32.0-36.0 g/dL Red Cell Distribution Width 10.8 L 11.0-15.5 % Platelet Count 223 130-400 K/uL Mean Platelet Volume 9.3 7.5-10.5 fL Immature Granulocyte % (Auto) 1.0 0-1 % Neutrophils (%) (Auto) 76.1 40.0-77.0 % Lymphocytes (%) (Auto) 13.4 L 21.0-51.0 % Monocytes (%) (Auto) 9.0 3.0-13.0 % Eosinophils (%) (Auto) 0.3 0.0-8.0 % Basophils (%) (Auto) 0.2 0.0-5.0 % Neutrophils # (Auto) 10.0 H 1.8-7.7 K/uL Lymphocytes # (Auto) 1.8 1.0-4.8 K/uL Monocytes # (Auto) 1.2 H 0.1-1.0 K/uL Eosinophils # (Auto) 0.04 0.00-0.70 K/uL Basophils # (Auto) 0.02 0.00-0.20 K/uL Absolute Immature Granulocyte (auto 0.13 0-1 K/uL Nucleated Red Blood Cells 0.0 0.0-0.19 % Sodium Level 139 136-145 mmol/L Potassium Level 3.4 L 3.5-5.1 mmol/L Chloride Level 102 101-111 mmol/L Carbon Dioxide Level 34 H 21-32 mmol/L Blood Urea Nitrogen 23 H 7-18 mg/dL Creatinine 1.6 H 0.5-1.3 mg/dL Glomerular Filtration Rate Calc 61 >90 mL/min Random Glucose 99 70-105 mg/dL Total Calcium 8.4 L 8.5-10.1 mg/dL Phosphorus Level 3.4 2.5-4.9 mg/dL Magnesium Level 1.40 L 1.80-2.40 mg/dL Total Bilirubin 2.1 H 0.2-1.0 mg/dL Aspartate Amino Transf (AST/SGOT) 37 10-37 U/L Alanine Aminotransferase (ALT/SGPT) 24 12-78 U/L Alkaline Phosphatase 59 50-136 U/L Total Protein 6.1 6.0-8.3 g/dL Albumin 2.7 L 3.5-5.0 g/dL Urine Color LIGHT-YELLOW YELLOW Urine Appearance HAZY CLEAR Urine pH 6.5 5.0-8.0 Urine Specific [place] 1.008 1.001-1.031 Urine Protein NEGATIVE NEGATIVE mg/dL Urine Glucose (UA) NEGATIVE NEGATIVE mg/dL Urine Ketones NEGATIVE NEGATIVE mg/dL Urine Occult Blood SMALL H NEGATIVE Urine Nitrate NEGATIVE NEGATIVE Urine Bilirubin NEGATIVE NEGATIVE mg/dL Urine Urobilinogen 0.2 0.2-1.0 mg/dL Urine Leukocyte Esterase 25 H NEGATIVE Jarad/uL Urine RBC 26-50 H 0-1 /HPF Urine WBC 2-5 H 0-1 /HPF Urine Bacteria RARE None Seen /HPF Uric Acid 3.8 2.6-7.2 mg/dL Test 06/10/24 23:12 06/10/24 11:21 Range/Units Whole Blood Glucose 111 H 70-110 MG/DL Immunoglobulin A 180 90-386 mg/dL Current Medications Medications (Trade) Dose Ordered Sig/Samantha Route PRN Reason Start Time Stop Time Status Last Admin Dose Admin Acetaminophen (TYLenol 325MG TAB) 650 mg Q6H PRN PO TEMPERATURE GREATER THAN 101.5 06/08/24 08:30 07/08/24 08:29 06/12/24 00:31 650 MG Albuterol (DUOneb) 1 udvial Q12H IH 06/12/24 18:00 07/08/24 11:59 Albuterol (DUOneb) 1 udvial [id number] IH 06/08/24 12:00 06/12/24 10:25 DC 06/12/24 07:01 1 UDVIAL Azithromycin 250 ml @ 250 mls/hr Q24H IVPB 06/08/24 08:30 06/08/24 08:42 DC Benzocaine (Hurricaine/ [place] 20% [place]) 1 SPRAY AD TP 06/11/24 13:00 07/11/24 12:59 06/11/24 12:45 1 MCG Cefepime HCl (MAXipime 1 GM vial) 1 gm DAILY IVPB 06/10/24 09:00 06/12/24 08:27 DC 06/11/24 08:26 1 GM Cefepime HCl (MAXipime 2 gm vial) 2 gm Q24H IVPB 06/09/24 14:30 06/09/24 18:00 DC 06/09/24 15:00 2 GM Cefepime HCl (MAXipime 2 gm vial) 2 gm Q8H IVPB 06/12/24 10:30 06/22/24 10:29 Ceftriaxone Sodium (Rocephin 2gm Inj) 2 gm Q24H IVPB 06/08/24 17:00 06/08/24 08:42 DC Dexmedetomidine/ Sodium Chloride (PRECEdex 400MCG/ 100ML-NS) 400 mcg PROTOCOL IV 06/09/24 14:30 06/10/24 11:40 DC 06/10/24 11:33 400 MCG Dexmedetomidine/ Sodium Chloride (PRECEdex 400MCG/ 100ML-NS) 400 mcg PROTOCOL IV 06/10/24 11:30 06/11/24 10:09 DC Diazepam (VALium 5 mg TAB) 10 mg Q6H PO 06/09/24 14:30 06/12/24 10:10 DC 06/12/24 09:42 10 MG Doxycycline Hyclate 250 ml @ 125 mls/hr Q12H IV 06/09/24 11:00 06/12/24 08:27 DC 06/11/24 22:29 125 MLS/HR Enoxaparin Sodium (Lovenox) 40 mg DAILY SQ 06/08/24 17:00 12/26/24 16:59 06/12/24 09:18 40 MG Famotidine (Pepcid 20mg Vial) 20 mg BID IV 06/08/24 09:00 06/09/24 09:57 DC 06/09/24 08:10 20 MG Famotidine (Pepcid 20mg Vial) 20 mg Q48H IV 06/11/24 10:00 06/12/24 08:27 DC 06/11/24 09:17 20 MG Famotidine (Pepcid 20mg Tab) 20 mg BID PO 06/12/24 09:00 07/12/24 08:59 06/12/24 09:42 20 MG Fentanyl Citrate 100 ml @ 2.5 mls/hr PROTOCOL IV 06/08/24 06:30 06/10/24 14:15 DC 06/10/24 09:20 2.5 MLS/HR Hydralazine HCl (APRESOLine 20MG INJ) 10 mg Q4H PRN IV ADMINISTER FOR SBP > 160 06/10/24 17:30 07/10/24 17:29 06/11/24 06:25 10 MG Insulin Human Regular (humuLIN R 100 UNIT/ML 3ML) INSULIN SLIDING SCAL... Q6H6 SQ 06/08/24 12:00 06/11/24 09:19 DC Lactulose (Constulose 20gm/ 30ml Udcup) 20 gm BID PRN PO CONSTIPATION 06/08/24 08:30 07/08/24 08:29 Levetiracetam (kepPRA 500 MG TABLET) 1,000 mg BID PO 06/12/24 09:00 07/12/24 08:59 06/12/24 09:42 1,000 MG Levetiracetam (kepPRA 500 MG/5 ML SD VIAL) 1,000 mg ONCE IV 06/08/24 06:00 06/08/24 08:35 DC 06/08/24 06:00 1,000 MG Levetiracetam (kepPRA 500 MG/5 ML SD VIAL) 2,000 mg ONCE IV 06/08/24 16:00 06/08/24 15:52 DC Levetiracetam 1000 mg/Sodium Chloride 110 ml @ 400 mls/hr BID IV 06/08/24 21:00 06/12/24 08:13 DC 06/11/24 20:29 400 MLS/HR Levetiracetam 500 mg/Sodium Chloride 100 ml @ 400 mls/hr BID IV 06/08/24 21:00 06/08/24 15:48 DC Levofloxacin (LEvaquIN 750MG TAB) 750 mg DAILY PO 06/12/24 09:00 06/12/24 10:07 DC 06/12/24 09:42 750 MG Lorazepam (AtiVAN) 2 mg Q2H PRN IVP SEIZURE 06/09/24 05:30 06/16/24 05:29 Magnesium Sulfate 50 ml @ 0 mls/hr PROTOCOL IV 06/12/24 05:30 07/12/24 05:29 06/12/24 05:26 25 MLS/HR Methylprednisolone Sodium Succinate (Solu-medROL 40MG) 40 mg DAILY IVP 06/11/24 09:00 06/12/24 08:27 DC 06/11/24 08:25 40 MG Methylprednisolone Sodium Succinate (Solu-medROL 40MG) 40 mg Q12H IVP 06/09/24 21:30 06/10/24 08:50 DC 06/10/24 08:28 40 MG Methylprednisolone Sodium Succinate (Solu-medROL 40MG) 40 mg Q8H IVP 06/08/24 09:30 06/09/24 10:56 DC 06/09/24 08:10 40 MG Metoclopramide HCl (regLAN 10MG IV) 10 mg Q8H5 IVP 06/10/24 21:00 06/11/24 10:05 DC 06/11/24 05:03 10 MG Metronidazole (flaGYL) 500 mg Q8H PO 06/12/24 08:30 06/22/24 08:29 06/12/24 09:43 500 MG Metronidazole/ Sodium Chloride 100 ml @ 100 mls/hr Q8H6 IVPB 06/09/24 22:00 06/12/24 08:27 DC 06/12/24 05:05 100 MLS/HR Midazolam HCl 100 ml @ 0 mls/hr PROTOCOL IV 06/08/24 12:30 06/10/24 14:15 DC 06/10/24 05:10 10 MLS/HR Ondansetron HCl (zoFRAN 4MG INJ) 4 mg Q6H PRN IV NAUSEA/VOMITING 06/08/24 08:30 07/08/24 08:29 06/12/24 09:18 4 MG Pharmacy Profile Note (Pharmacy Communication) 1 each ONCE MISC 06/08/24 12:30 06/08/24 12:19 DC Piperacillin Sod/ Tazobactam Sod (Zosyn 3.375gm+NS 50ml) 3.375 gm Q12H IV 06/08/24 22:30 06/09/24 14:27 DC 06/09/24 10:13 3.375 GM Polyethylene Glycol (MIRalax 3350 17 GM POWD.PACK) 17 gm DAILY PRN PO CONSTIPATION 06/08/24 08:30 07/08/24 08:29 Potassium Chloride 100 ml @ 100 mls/hr AD PRN IV POTASSIUM PROTOCOL 06/12/24 05:30 07/12/24 05:29 Potassium Chloride (K-Dur/Klor-Con 20meq) 20 meq AD PRN PO POTASSIUM PROTOCOL 06/12/24 05:30 07/12/24 05:29 06/12/24 06:27 20 MEQ Potassium Chloride (KCl 10% Elixir 20meq/15ml) 20 meq AD PRN PO POTASSIUM PROTOCOL 06/12/24 05:30 07/12/24 05:29 Propofol (DIPRivan 1000MG/ 100ML) 1,000 mg PROTOCOL PRN IV SEDATION 06/08/24 06:30 06/11/24 10:09 DC 06/10/24 08:22 1,000 MG Sodium Bicarbonate 150 meq/Dextrose 1,150 ml @ 75 mls/hr [id number] IVP 06/10/24 09:00 06/11/24 10:05 DC 06/10/24 23:53 75 MLS/HR Sodium Chloride 1,000 ml @ 100 mls/hr Q10H IV 06/09/24 10:00 06/11/24 10:05 DC 06/11/24 02:37 100 MLS/HR Thiamine HCl (Vitamin B-1) 100 mg DAILY IVP 06/10/24 09:00 07/10/24 08:59 06/12/24 09:18 100 MG Ziprasidone (Geodon) 10 mg BID PRN IM agitation 06/10/24 09:00 07/10/24 08:59 DIAGNOSTICS / RADIOLOGY: [ ] ASSESSMENT: Status epilepticus s/p intubation (06/08/24) Acute hypoxic respiratory failure, extubated (06/11 24) Positive JORDANA and anti-SSA/Ro antibodies Elevated troponin with new T-Wave inversions Nephrotic range proteinuria, resolved Glucosuria, resolved Right upper lobe opacity concerning for aspiration pneumonitis versus community acquired pneumonia Pre-renal Acute kidney injury, improving, POA Rhabdomyolysis secondary to seizure, resolved Anion gap metabolic acidosis, resolved Lactic acidosis, lactic acid 3.9, resolved Leukocytosis with left shift, improving Hyperglycemia History of seizures, vaping, former cocaine abuse PLAN: Status epilepticus s/p intubation (06/08/24), extubated (06/11/24) -Continue Keppra 1000 mg b.i.d. -Seizure precautions -PRN ativan for acute seizure -MRI brain with no abnormalities noted -EEG pending, will follow up -neuro consult noted appreciate recommendations Positive JORDANA and anti-SSA/Ro antibodies - ESR and CRP ordered, will follow up - Continue systemic steroids Elevated troponin with new T-Wave inversions - Continue telemetry - Repeat troponin in 6 hours - Cardiology consulted, appreciate recommendations Right upper lobe opacity concerning for aspiration pneumonitis versus community acquired pneumonia High anion gap metabolic acidosis, resolved Leukocytosis with left shift, resolved Possibly secondary to aspiration during the seizure event -Continue cefepime and doxycycline -Cultures are no growth to date Acute renal failure secondary to ATN from sepsis, improving Proteinuria, resolved Glucosuria, resolved Rhabdomyolysis, resolved - NS @ 180 cc/hr - JORDANA, ANCA and IgA panels ordered, will follow up - Monitor urine output - Nephrology consulted, appreciate recommendations Hyperglycemia, resolved - Continue sliding scale insulin - Continue hypoglycemia protocol Vaping Cocaine use disorder Marijuana use disorder - Patient will be counselled on importance of abstinence after extubation - Will explain the increased risk of seizures with continued substance abuse Disposition: Pending cardiology recommendations, resolution of fevers Greater than 35 minutes ICU time spent in care of this patient SIDDHARTHA GOMEZ MD Jun 12, 2024 10:48
[2024-06-12 10:55] LABS: INR 1.16 (0.85-1.15); PROTHROMBIN TIME 12.4 SEC (9.6-11.6)
[2024-06-12 10:56] LABS: PARTIAL THROMBOPLASTIN TIME 32.9 SEC (26.3-35.5)
[2024-06-12] MEDS: predniSONE 20 MG TABLET PO SCH (11:39)
--- NOTE | 2024-06-12 16:52 | CONS ---
[facility] CARDIOLOGY CONSULTATION REPORT Date Patient Seen: June 12, 2024 Attending [employer]icated [employer] Driver: Dr. Jessica Mariano Requesting Physician: Hospitalist Reason for Consultation: Elevated troponin History of Present Illness: This is a 24y/o male with a past medical history of seizure disorder, noncompliant with AED therapy and polysubstance abuse (cocaine, THC, and tobacco) who originally presented on 06/08/2024 with recurrent seizure. As per the patient's , the patient has 3 seizures back to back that occurred while the patient was sleeping. There were no reported precipitating symptoms, and the duration of each seizure is unknown. There was reported loss of bladder function and post ictal state, but no reported loss of bowel function. Post seizure the patient complained of a headache, but denied any other active complaints including dizziness, chest pain, chest pressure, palpitations, shortness of breath, PND, orthopnea, abdominal pain, nausea, vomiting, weight gain, lower extremity swelling, diaphoresis, fever, or chills. The recurrent seizures prompted the patient's to seek a higher level of care. The patient's hospital course was complicated by the need for intubation and the need for mechanical ventilation, and was successfully extubated on 06/11/2024. While on the inpatient service, laboratory data identified an elevated high sensitivity troponin I level. Cardiology was consulted for treatment recommendations. Past Medical History: Listed above Past Surgical History: Listed above Family History: Noncontributory Social History: Positive for tobacco and THC use. Reported former cocaine abuse. Review of Systems: CONST: [No fever, fatigue, or weight changes.] EYES: [No recent vision problems.] ENT: [No congestion, ear pain, or sore throat.] C/V: [No chest pain, chest pressure, palpitations, or edema.] RESP: [No cough, congestion, wheezing or shortness of breath.] GI: [No abdominal pain, nausea, vomiting, constipation, or diarrhea.] : [No incontinence or dysuria.] SKIN: [No rash.] NEURO: [As per the HPI.] PSYCH: [Positive for anxiety.] Physical Examination: GENERAL: [No acute distress.] HEAD: [Normal with no signs of head trauma.] EYES: [PERRLA, EOMI, conjunctiva and sclera normal.] ENT: [Hearing grossly intact, normal oropharynx.] NECK: [Supple without JVD. There is no tenderness, lymphadenopathy, or masses. No thyromegaly. Normal carotid upstrokes without bruits.] LUNGS: [SCM. Bilateral air entry. Clear breath sounds bilaterally. No obvious wheezes, rales, or rhonchi.] HEART: [Normal rate. Normal S1 and S2. No obvious murmurs, gallop, or rub.] VASC: [Peripheral pulses +2 bilaterally.] ABD: [Bowel sounds normal, soft, nontender, no masses, no organomegaly.] EXT: [No clubbing, cyanosis or edema.] SKIN: [No rashes or lesions noted.] NEURO: [Awake, alert, and oriented x3. No focal sensory or strength deficits noted.] Vital Signs (last 8hr) Date Time Temp Pulse Resp B/P (MAP) Pulse Ox O2 Delivery O2 Flow Rate FiO2 06/12/24 11:35 99.1 83 18 144/82 96 Room Air 06/12/24 09:00 92 Nasal Cannula* 2 N/A Aerosol Mask+ Laboratory: Hematology Labs: Test 06/12/24 13:15 06/12/24 04:09 Range/Units Erythrocyte Sedimentation Rate 26 H 0-15 MM/HR White Blood Count 13.1 H 4.8-10.8 K/uL Red Blood Count 3.85 L 4.50-6.20 MIL/uL Hemoglobin 12.2 L 14.0-18.0 g/dL Hematocrit 36.1 L 42-54 % Mean Corpuscular Volume 93.8 79-99 fL Mean Corpuscular Hemoglobin 31.7 27.0-33.0 pg Mean Corpuscular Hemoglobin Concent 33.8 32.0-36.0 g/dL Red Cell Distribution Width 10.8 L 11.0-15.5 % Platelet Count 223 130-400 K/uL Mean Platelet Volume 9.3 7.5-10.5 fL Immature Granulocyte % (Auto) 1.0 0-1 % Neutrophils (%) (Auto) 76.1 40.0-77.0 % Lymphocytes (%) (Auto) 13.4 L 21.0-51.0 % Monocytes (%) (Auto) 9.0 3.0-13.0 % Eosinophils (%) (Auto) 0.3 0.0-8.0 % Basophils (%) (Auto) 0.2 0.0-5.0 % Neutrophils # (Auto) 10.0 H 1.8-7.7 K/uL Lymphocytes # (Auto) 1.8 1.0-4.8 K/uL Monocytes # (Auto) 1.2 H 0.1-1.0 K/uL Eosinophils # (Auto) 0.04 0.00-0.70 K/uL Basophils # (Auto) 0.02 0.00-0.20 K/uL Absolute Immature Granulocyte (auto 0.13 0-1 K/uL Nucleated Red Blood Cells 0.0 0.0-0.19 % Chemistry Labs: Test 06/12/24 13:15 06/12/24 10:20 06/12/24 04:09 06/11/24 03:48 Range/Units Troponin I High Sensitivity 366 *H 4-75 ng/L C-Reactive Protein, Quantitative 200.20 H 0.5-3.0 mg/L Sodium Level 139 136-145 mmol/L Potassium Level 3.4 L 3.5-5.1 mmol/L Chloride Level 102 101-111 mmol/L Carbon Dioxide Level 34 H 21-32 mmol/L Blood Urea Nitrogen 23 H 7-18 mg/dL Creatinine 1.6 H 0.5-1.3 mg/dL Glomerular Filtration Rate Calc 61 >90 mL/min Random Glucose 99 70-105 mg/dL Total Calcium 8.4 L 8.5-10.1 mg/dL Phosphorus Level 3.4 2.5-4.9 mg/dL Magnesium Level 1.40 L 1.80-2.40 mg/dL Total Bilirubin 2.1 H 0.2-1.0 mg/dL Aspartate Amino Transf (AST/SGOT) 37 10-37 U/L Alanine Aminotransferase (ALT/SGPT) 24 12-78 U/L Alkaline Phosphatase 59 50-136 U/L Total Protein 6.1 6.0-8.3 g/dL Albumin 2.7 L 3.5-5.0 g/dL Uric Acid 3.8 2.6-7.2 mg/dL Test 06/10/24 23:12 Range/Units Whole Blood Glucose 111 H 70-110 MG/DL Coagulation Labs: Test 06/12/24 10:20 Range/Units Prothrombin Time 12.4 H 9.6-11.6 SEC Prothromb Time International Ratio 1.16 H 0.85-1.15 Activated Partial Thromboplast Time 32.9 26.3-35.5 SEC Assessment: -Breakthrough seizures, noncompliant with AED therapy -Acute hypoxemia respiratory failure s/p intubation on 06/08/2024, extubated 06/11/2024 -Leukocytosis -Lactic acidosis -UTI -RUL PNA (aspiration vs CAP) -Elevated CK -KRYSTAL, improving -Electrolyte derangement -Elevated troponin -Normal LV systolic function (LVEF: 60-65% by echo done 06/10/2024) -Positive JORDANA with elevated SS-A/Ro antibody and decreased complement C4, concerning for SLE -Polysubstance abuse (cocaine, THC, and tobacco) Plan: 1. Elevated troponin -Cardiac enzymes-HS troponin I: 454>366 -ECG 06/12/2024: Sinus rhythm with T wave inversions in leads I and aVL, QTc: 482 ms, HR: 66 bpm -2D echocardiogram 06/09/2024: Mild concentric LVH with no regional wall motion abnormalities noted. LV systolic function is normal with an estimated LVEF of 60-65%. The RA and RV are moderately dilated. No valvular abnormalities noted. No pericardial effusion. -The patient presents with recurrent breakthrough seizures, but denies any chest pain, chest pressure, palpitations, or shortness of breath. -The elevated troponin is thought to be a type II RI (demand ischemia) induced by the recurrent breakthrough seizure, acute respiratory failure requiring temporary intubation and mechanical ventilation, leukocytosis, lactic acidosis, and KRYSTAL and not secondary to ACS. -We will repeat a HS troponin I level today and ECG in the AM. -If there is concern for the accelerated development of CAD, then a CCTA can be ordered to further evaluate this issue. However, in the meantime, we recommend continuing to treat the above mentioned inciting factors. -Consider repeat limited echo with agitated saline to evaluate for shunting given right sided chamber dilation. -Please keep the patient on continuous telemetry monitoring and maintain electrolytes within normal parameters. Thank you for this interesting consult and allowing us to participate in the care of your patient. This case was discussed with my Supervising Physician, Dr. Jessica Mariano, and the above mentioned plan was formulated and agreed upon. -Consult Note written by Jovanny Dickinson, MSN, [employer], AGACNP-BC JOVANNY DICKINSON NP Jun 12, 2024 16:52 JESSICA MARIANO DO Jun 14, 2024 00:55
[2024-06-12] MEDS: IpraTROPium/alBUTERol SULFATE 3 ML SOLUTION IH SCH (19:22)
[2024-06-12] MEDS: PROMETHAZINE HCL 25 MG/ML 1ML AMPULE IM ONE (22:00)
[2024-06-13] VITALS (11 sets, daily range): BP systolic 126–160; BP diastolic 62–91; PULSE 55–88; RESP 16–18; TEMP 97.9–99.5; O2SAT 95–97
[2024-06-13 03:33] LABS: BASOPHILS # (AUTO) 0.04 K/uL (0.00-0.20); BASOPHILS % (AUTO) 0.4 % (0.0-5.0); EOSINOPHILS # (AUTO) 0.15 K/uL (0.00-0.70); EOSINOPHILS % (AUTO) 1.4 % (0.0-8.0); HEMATOCRIT 37.7 % (42-54); IMMATURE GRANULOCYTE ABSOLUTE 0.13 K/uL (0-1); MEAN CORPUSCULAR HEMOGLOBIN 31.5 pg (27.0-33.0); MEAN CORPUSCULAR HGB CONC 34.2 g/dL (32.0-36.0); MEAN CORPUSCULAR VOLUME 92.2 fL (79-99); MONOCYTES # (AUTO) 1.2 K/uL (0.1-1.0); NEUTROPHILS # (AUTO) 7.1 K/uL (1.8-7.7); PLATELET COUNT (AUTO) 228 K/uL (130-400); RED BLOOD CELL COUNT(AUTO) 4.09 MIL/uL (4.50-6.20); RED CELL DISTRIBUTION WIDTH 10.9 % (11.0-15.5); WHITE BLOOD COUNT (AUTO) 10.5 K/uL (4.8-10.8)
[2024-06-13 03:51] LABS: CREATININE 1.3 mg/dL (0.5-1.3); MAGNESIUM 1.6 mg/dL (1.80-2.40); PHOSPHORUS 3.8 mg/dL (2.5-4.9); POTASSIUM 4.1 mmol/L (3.5-5.1)
--- NOTE | 2024-06-13 07:29 | PN ---
[facility] PROGRESS NOTE Date of Service: Jun 13, 2024 Time of Service: 07:26 SUBJECTIVE: 06/09 patient seen at bedside, no acute events overnight. He remains intubated and sedated. He is currently on an FiO2 of 40% with a tidal volume of 450 and a PEEP of 8, saturating at 100%. We will decrease PEEP down to 5 and continue to monitor. According to ventilator settings he may be a good candidate for extubation, we will defer to critical Care for extubation. Patient did have a sedation vacation however he was unmanageable and had to be sedated again, we will repeat tomorrow in an attempt to try to extubate. His creatinine increased from 1.4 up to 3.8, he has not been running any start him on normal saline at 180 cc/hour and continue to monitor urine output. He is likely a little bit dehydrated due to being NPO for prolonged period of time. He has been assessed by Neurology who adjusted his Keppra to a 1000 mg twice daily and they recommended MRI. He will likely get the MRI once he has been extubated. EEG is also pending, we will follow up. Blood cultures are no growth to date, urine culture is still pending. Urine tox positive for marijuana no other substances. 06/10 patient seen at bedside, no acute events overnight. He remains intubated and sedated. Every time sedation is weaned he becomes agitated and began pulling at all his lines, he is sedated once again. We will defer to critical Care for extubation. Patient showing proteinuria and glucosuria which is not normal for a young male his age. He has no history of diabetes. We will initiate further workup to discover the source of his proteinuria. We will order an JORDANA with reflex, p-ANCA and C ANCA and IgA. We will also order an HIV panel and follow up. Creatinine peaked at 4.4 before trending down to 4.3 today, he has adequate urine output with a proximally 2 L in the last 24 hours. Remaining vitals and labs are relatively unremarkable. He has been started on tube feeds and we will continue until he is extubated. 06/11 patient seen at bedside, no acute events overnight. He was successfully extubated and is currently saturating well on 2 L nasal cannula. HIV panel was negative, autoimmune workup is still pending for his proteinuria. We will follow up with Nephrology recommendations. WBC stable at 14.5, similar to yesterday, sodium improved, creatinine improved from 4.3 down to 2.6, remainder of his labs are relatively unremarkable. Repeat UA today showed resolution of proteinuria and glucosuria, given these findings the proteinuria was likely a cute in temporary in nature. MRI of brain is still pending, we will follow up 06/12 patient seen at bedside, he has had low-grade fevers overnight. Patient has difficult stick we will place a midline to resume his IV antibiotics. In the meantime have transitioned most of his antibiotics to p.o. except for cefepime. Patient also noted to have T wave changes on his EKG and troponin was ordered noted to be elevated in the 400s. We will consult Cardiology for recommendations. The patient's autoimmune panel showed a positive JORDANA and anti- SSA/Ro antibody with a decreased C4 normal C3 complement which is concerning for possible underlying autoimmune disease. Given the constellation of symptoms with seizures and markers of stress on the heart is in an otherwise healthy young male this is concerning for an autoimmune vasculitis or mixed connective tissue disease. We will order an ESR and CRP to assess for underlying inflammation and continue with systemic steroids at this point. 06/13 patient seen at bedside, no acute events overnight. Discussed case with Cardiology, given the clinical picture they agree a coronary CTA would be indic ated prior to discharge, likely will not be able to be done until Friday. He has been afebrile, hemodynamically stable saturating well on room air. He reports that he is feeling better today. Labs are relatively unremarkable. Troponins are trending down. Upon discharge he will need to follow up with the neurologist and we will need a referral to see a rn wom[facility] health. REVIEW OF SYSTEMS 12 point ROS negative unless noted in HPI PHYSICAL EXAM GENERAL APPEARANCE: The patient is awake, alert, and oriented, in no acute cardiopulmonary distress. NEUROLOGICAL: Cranial nerves II-XII grossly intact. Motor is 5/5 in bilateral upper and lower extremities proximal to distal. No sensory deficits. HEENT: Face is symmetric. Pupils are equal and reactive. Extraocular movements are intact. NECK: Supple. No JVD. No thyromegaly. No submental, submandibular, pre- /postauricular, occipital or supraclavicular lymphadenopathy. CHEST: Normal chest expansion. No Telemetry. LUNGS: Absence of any rales, rhonchi or any wheezing. CARDIOVASCULAR: Regular. S1 and S2 normal. No appreciable rubs, murmurs or gallops. ABDOMEN: Soft, nontender, and nondistended. There is no rebound, voluntary guarding, or rigidity. : Deferred. No Dykes. EXTREMITIES: Non-edematous and not cyanotic. No clubbing. Good capillary refill. SKIN: No skin breakdown. LABS: Laboratory: Test 06/13/24 03:25 06/12/24 18:58 06/12/24 13:15 06/12/24 10:20 Range/Units White Blood Count 10.5 4.8-10.8 K/uL Red Blood Count 4.09 L 4.50-6.20 MIL/uL Hemoglobin 12.9 L 14.0-18.0 g/dL Hematocrit 37.7 L 42-54 % Mean Corpuscular Volume 92.2 79-99 fL Mean Corpuscular Hemoglobin 31.5 27.0-33.0 pg Mean Corpuscular Hemoglobin Concent 34.2 32.0-36.0 g/dL Red Cell Distribution Width 10.9 L 11.0-15.5 % Platelet Count 228 130-400 K/uL Mean Platelet Volume 9.1 7.5-10.5 fL Immature Granulocyte % (Auto) 1.2 H 0-1 % Neutrophils (%) (Auto) 67.0 40.0-77.0 % Lymphocytes (%) (Auto) 19.0 L 21.0-51.0 % Monocytes (%) (Auto) 11.0 3.0-13.0 % Eosinophils (%) (Auto) 1.4 0.0-8.0 % Basophils (%) (Auto) 0.4 0.0-5.0 % Neutrophils # (Auto) 7.1 1.8-7.7 K/uL Lymphocytes # (Auto) 2.0 1.0-4.8 K/uL Monocytes # (Auto) 1.2 H 0.1-1.0 K/uL Eosinophils # (Auto) 0.15 0.00-0.70 K/uL Basophils # (Auto) 0.04 0.00-0.20 K/uL Absolute Immature Granulocyte (auto 0.13 0-1 K/uL Nucleated Red Blood Cells 0.0 0.0-0.19 % Sodium Level 142 136-145 mmol/L Potassium Level 4.1 3.5-5.1 mmol/L Chloride Level 105 101-111 mmol/L Carbon Dioxide Level 31 21-32 mmol/L Blood Urea Nitrogen 23 H 7-18 mg/dL Creatinine 1.3 0.5-1.3 mg/dL Glomerular Filtration Rate Calc 79 >90 mL/min Random Glucose 94 70-105 mg/dL Total Calcium 8.6 8.5-10.1 mg/dL Phosphorus Level 3.8 2.5-4.9 mg/dL Magnesium Level 1.60 L 1.80-2.40 mg/dL Troponin I High Sensitivity 315 *H 4-75 ng/L Erythrocyte Sedimentation Rate 26 H 0-15 MM/HR Prothrombin Time 12.4 H 9.6-11.6 SEC Prothromb Time International Ratio 1.16 H 0.85-1.15 Activated Partial Thromboplast Time 32.9 26.3-35.5 SEC C-Reactive Protein, Quantitative 200.20 H 0.5-3.0 mg/L Test 06/12/24 04:09 06/11/24 09:49 Range/Units Total Bilirubin 2.1 H 0.2-1.0 mg/dL Aspartate Amino Transf (AST/SGOT) 37 10-37 U/L Alanine Aminotransferase (ALT/SGPT) 24 12-78 U/L Alkaline Phosphatase 59 50-136 U/L Total Protein 6.1 6.0-8.3 g/dL Albumin 2.7 L 3.5-5.0 g/dL Urine Color LIGHT-YELLOW YELLOW Urine Appearance HAZY CLEAR Urine pH 6.5 5.0-8.0 Urine Specific [place] 1.008 1.001-1.031 Urine Protein NEGATIVE NEGATIVE mg/dL Urine Glucose (UA) NEGATIVE NEGATIVE mg/dL Urine Ketones NEGATIVE NEGATIVE mg/dL Urine Occult Blood SMALL H NEGATIVE Urine Nitrate NEGATIVE NEGATIVE Urine Bilirubin NEGATIVE NEGATIVE mg/dL Urine Urobilinogen 0.2 0.2-1.0 mg/dL Urine Leukocyte Esterase 25 H NEGATIVE Jarad/uL Urine RBC 26-50 H 0-1 /HPF Urine WBC 2-5 H 0-1 /HPF Urine Bacteria RARE None Seen /HPF Current Medications Medications (Trade) Dose Ordered Sig/Samantha Route PRN Reason Start Time Stop Time Status Last Admin Dose Admin Acetaminophen (TYLenol 325MG TAB) 650 mg Q6H PRN PO TEMPERATURE GREATER THAN 101.5 06/08/24 08:30 07/08/24 08:29 06/12/24 00:31 650 MG Albuterol (DUOneb) 1 udvial Q12H IH 06/12/24 18:00 07/08/24 11:59 06/13/24 06:48 1 UDVIAL Albuterol (DUOneb) 1 udvial Q5PXHRI IH 06/08/24 12:00 06/12/24 10:25 DC 06/12/24 07:01 1 UDVIAL Azithromycin 250 ml @ 250 mls/hr Q24H IVPB 06/08/24 08:30 06/08/24 08:42 DC Benzocaine (Hurricaine/ [place] 20% [place]) 1 SPRAY AD TP 06/11/24 13:00 07/11/24 12:59 06/11/24 12:45 1 MCG Cefepime HCl (MAXipime 1 GM vial) 1 gm DAILY IVPB 06/10/24 09:00 06/12/24 08:27 DC 06/11/24 08:26 1 GM Cefepime HCl (MAXipime 2 gm vial) 2 gm Q24H IVPB 06/09/24 14:30 06/09/24 18:00 DC 06/09/24 15:00 2 GM Cefepime HCl (MAXipime 2 gm vial) 2 gm Q8H IVPB 06/12/24 10:30 06/22/24 10:29 06/13/24 02:30 2 GM Ceftriaxone Sodium (Rocephin 2gm Inj) 2 gm Q24H IVPB 06/08/24 17:00 06/08/24 08:42 DC Dexmedetomidine/ Sodium Chloride (PRECEdex 400MCG/ 100ML-NS) 400 mcg PROTOCOL IV 06/09/24 14:30 06/10/24 11:40 DC 06/10/24 11:33 400 MCG Dexmedetomidine/ Sodium Chloride (PRECEdex 400MCG/ 100ML-NS) 400 mcg PROTOCOL IV 06/10/24 11:30 06/11/24 10:09 DC Diazepam (VALium 5 mg TAB) 10 mg Q6H PO 06/09/24 14:30 06/12/24 10:10 DC 06/12/24 09:42 10 MG Doxycycline Hyclate 250 ml @ 125 mls/hr Q12H IV 06/09/24 11:00 06/12/24 08:27 DC 06/11/24 22:29 125 MLS/HR Enoxaparin Sodium (Lovenox) 40 mg DAILY SQ 06/08/24 17:00 07/08/24 16:59 06/12/24 09:18 40 MG Famotidine (Pepcid 20mg Vial) 20 mg BID IV 06/08/24 09:00 06/09/24 09:57 DC 06/09/24 08:10 20 MG Famotidine (Pepcid 20mg Vial) 20 mg Q48H IV 06/11/24 10:00 06/12/24 08:27 DC 06/11/24 09:17 20 MG Famotidine (Pepcid 20mg Tab) 20 mg BID PO 06/12/24 09:00 07/12/24 08:59 06/12/24 20:53 20 MG Fentanyl Citrate 100 ml @ 2.5 mls/hr PROTOCOL IV 06/08/24 06:30 06/10/24 14:15 DC 06/10/24 09:20 2.5 MLS/HR Hydralazine HCl (APRESOLine 20MG INJ) 10 mg Q4H PRN IV ADMINISTER FOR SBP > 160 06/10/24 17:30 07/10/24 17:29 06/11/24 06:25 10 MG Insulin Human Regular (humuLIN R 100 UNIT/ML 3ML) INSULIN SLIDING SCAL... Q6H6 SQ 06/08/24 12:00 06/11/24 09:19 DC Lactulose (Constulose 20gm/ 30ml Udcup) 20 gm BID PRN PO CONSTIPATION 06/08/24 08:30 07/08/24 08:29 Levetiracetam (kepPRA 500 MG TABLET) 1,000 mg BID PO 06/12/24 09:00 07/12/24 08:59 06/12/24 20:53 1,000 MG Levetiracetam (kepPRA 500 MG/5 ML SD VIAL) 1,000 mg ONCE IV 06/08/24 06:00 06/08/24 08:35 DC 06/08/24 06:00 1,000 MG Levetiracetam (kepPRA 500 MG/5 ML SD VIAL) 2,000 mg ONCE IV 06/08/24 16:00 06/08/24 15:52 DC Levetiracetam 1000 mg/Sodium Chloride 110 ml @ 400 mls/hr BID IV 06/08/24 21:00 06/12/24 08:13 DC 06/11/24 20:29 400 MLS/HR Levetiracetam 500 mg/Sodium Chloride 100 ml @ 400 mls/hr BID IV 06/08/24 21:00 06/08/24 15:48 DC Levofloxacin (LEvaquIN 750MG TAB) 750 mg DAILY PO 06/12/24 09:00 06/12/24 10:07 DC 06/12/24 09:42 750 MG Lorazepam (AtiVAN) 2 mg Q2H PRN IVP SEIZURE 06/09/24 05:30 06/16/24 05:29 Magnesium Sulfate 50 ml @ 0 mls/hr PROTOCOL IV 06/12/24 05:30 07/12/24 05:29 06/13/24 06:18 25 MLS/HR Methylprednisolone Sodium Succinate (Solu-medROL 40MG) 40 mg DAILY IVP 06/11/24 09:00 06/12/24 08:27 DC 06/11/24 08:25 40 MG Methylprednisolone Sodium Succinate (Solu-medROL 40MG) 40 mg Q12H IVP 06/09/24 21:30 06/10/24 08:50 DC 06/10/24 08:28 40 MG Methylprednisolone Sodium Succinate (Solu-medROL 40MG) 40 mg Q8H IVP 06/08/24 09:30 06/09/24 10:56 DC 06/09/24 08:10 40 MG Metoclopramide HCl (regLAN 10MG IV) 10 mg Q8H5 IVP 06/10/24 21:00 06/11/24 10:05 DC 06/11/24 05:03 10 MG Metronidazole (flaGYL) 500 mg Q8H PO 06/12/24 08:30 06/22/24 08:29 06/13/24 01:30 500 MG Metronidazole/ Sodium Chloride 100 ml @ 100 mls/hr Q8H6 IVPB 06/09/24 22:00 06/12/24 08:27 DC 06/12/24 05:05 100 MLS/HR Midazolam HCl 100 ml @ 0 mls/hr PROTOCOL IV 06/08/24 12:30 06/10/24 14:15 DC 06/10/24 05:10 10 MLS/HR Ondansetron HCl (zoFRAN 4MG INJ) 4 mg Q6H PRN IV NAUSEA/VOMITING 06/08/24 08:30 07/08/24 08:29 06/12/24 20:02 4 MG Pharmacy Profile Note (Pharmacy Communication) 1 each ONCE MISC 06/08/24 12:30 06/08/24 12:19 DC Piperacillin Sod/ Tazobactam Sod (Zosyn 3.375gm+NS 50ml) 3.375 gm Q12H IV 06/08/24 22:30 06/09/24 14:27 DC 06/09/24 10:13 3.375 GM Polyethylene Glycol (MIRalax 3350 17 GM POWD.PACK) 17 gm DAILY PRN PO CONSTIPATION 06/08/24 08:30 07/08/24 08:29 Potassium Chloride 100 ml @ 100 mls/hr AD PRN IV POTASSIUM PROTOCOL 06/12/24 05:30 07/12/24 05:29 Potassium Chloride (K-Dur/Klor-Con 20meq) 20 meq AD PRN PO POTASSIUM PROTOCOL 06/12/24 05:30 07/12/24 05:29 06/12/24 06:27 20 MEQ Potassium Chloride (KCl 10% Elixir 20meq/15ml) 20 meq AD PRN PO POTASSIUM PROTOCOL 06/12/24 05:30 07/12/24 05:29 Prednisone (deltaSONE/ oraSONE 20MG TAB) 40 mg DAILY PO 06/12/24 11:00 07/12/24 10:59 06/12/24 11:39 40 MG Propofol (DIPRivan 1000MG/ 100ML) 1,000 mg PROTOCOL PRN IV SEDATION 06/08/24 06:30 06/11/24 10:09 DC 06/10/24 08:22 1,000 MG Sodium Bicarbonate 150 meq/Dextrose 1,150 ml @ 75 mls/hr [id number] IVP 06/10/24 09:00 06/11/24 10:05 DC 06/10/24 23:53 75 MLS/HR Sodium Chloride 1,000 ml @ 100 mls/hr Q10H IV 06/09/24 10:00 06/11/24 10:05 DC 06/11/24 02:37 100 MLS/HR Thiamine HCl (Vitamin B-1) 100 mg DAILY IVP 06/10/24 09:00 07/10/24 08:59 06/12/24 09:18 100 MG Ziprasidone (Geodon) 10 mg BID PRN IM agitation 06/10/24 09:00 07/10/24 08:59 DIAGNOSTICS / RADIOLOGY: [ ] ASSESSMENT: Status epilepticus s/p intubation (06/08/24) Acute hypoxic respiratory failure, extubated (06/11 24) Positive JORDANA and anti-SSA/Ro antibodies Elevated troponin with new T-Wave inversions Nephrotic range proteinuria, resolved Glucosuria, resolved Right upper lobe opacity concerning for aspiration pneumonitis versus community acquired pneumonia Pre-renal Acute kidney injury, improving, POA Rhabdomyolysis secondary to seizure, resolved Anion gap metabolic acidosis, resolved Lactic acidosis, lactic acid 3.9, resolved Leukocytosis with left shift, improving Hyperglycemia History of seizures, vaping, former cocaine abuse PLAN: Status epilepticus s/p intubation (06/08/24), extubated (06/11/24) -Continue Keppra 1000 mg b.i.d. -Seizure precautions -PRN ativan for acute seizure -MRI brain with no abnormalities noted -EEG pending, will follow up -neuro consult noted appreciate recommendations Positive JORDANA and anti-SSA/Ro antibodies - ESR and CRP ordered, will follow up - Continue systemic steroids Elevated troponin with new T-Wave inversions - Continue telemetry - Repeat troponin in 6 hours - Cardiology consulted, appreciate recommendations Right upper lobe opacity concerning for aspiration pneumonitis versus community acquired pneumonia High anion gap metabolic acidosis, resolved Leukocytosis with left shift, resolved Possibly secondary to aspiration during the seizure event -Continue cefepime and doxycycline -Cultures are no growth to date Acute renal failure secondary to ATN from sepsis, improving Proteinuria, resolved Glucosuria, resolved Rhabdomyolysis, resolved - NS @ 180 cc/hr - JORDANA, ANCA and IgA panels ordered, will follow up - Monitor urine output - Nephrology consulted, appreciate recommendations Hyperglycemia, resolved - Continue sliding scale insulin - Continue hypoglycemia protocol Vaping Cocaine use disorder Marijuana use disorder - Patient will be counselled on importance of abstinence after extubation - Will explain the increased risk of seizures with continued substance abuse Disposition: Pending coronary CTA SIDDHARTHA GOMEZ MD Jun 13, 2024 07:29
--- NOTE | 2024-06-13 08:24 | EKG ---
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 : 2000 Requested By: JOVANNY DICKINSON Order Number: [id number] Reading MD: Jessica Gamboa Measurements Intervals [place] Rate: 75 P: 53 SC: 126 QRS: -3 QRSD: 84 T: 111 QT: 442 QTc: 493 Interpretive Statements Normal sinus rhythm Possible Inferior infarct , age undetermined T wave abnormality, consider lateral ischemia Compared to ECG 06/12/2024 06:27:01 Myocardial infarct finding now present Sinus arrhythmia no longer present Prolonged QT interval no longer present T-wave abnormality still present Possible ischemia still present Electronically Signed On 06-13-2024 11:36:02 RESEARCH EDITOR by Jessica Gamboa Please click the below link to view image of tracing.
--- NOTE | 2024-06-13 09:41 | PN ---
NEPHROLOGY PROGRESS NOTE Date/Time Patient Seen: Jun 13, 2024 SUBJECTIVE: This is a 24-year-old male with a past medical history of seizures, former cocaine abuse, current marijuana use, and vaping. He presented to the emergency room with complaints of seizures. According to family patient has been noncompliant with seizure medications. UDS was positive for marijuana. Chest x-ray on admission showed right upper lobe infiltrate consistent with pneumonia. He has been started on Solu-Medrol for pneumonia. CT of head was normal. Continues on antibiotics He has been extubated and transferred to the medical floor MRI of the brain was normal. He was noted to have elevated BUN/creatinine and hyperkalemia. We have been consulted for renal failure. Renal function continues to improve Electrolytes are stable Renal ultrasound was noted Repeat UA was negative for proteinuria He was seen in the medical floor, in no acute distress REVIEW OF SYSTEMS: GENERAL: Negative for any nausea, vomiting, fevers, chills, or weight loss. NEUROLOGIC: Negative for any blurry vision, blind spots, double vision, facial asymmetry, dysphagia, dysarthria, hemiparesis, hemisensory deficits, vertigo, ataxia. HEENT: Negative for any head trauma, neck trauma, neck stiffness, photophobia, phonophobia, sinusitis, rhinitis. CARDIAC: Negative for any chest pain, dyspnea on exertion, paroxysmal nocturnal dyspnea, peripheral edema. PULMONARY: Negative for any shortness of breath, wheezing, COPD, or TB exposure. GASTROINTESTINAL: Negative for any abdominal pain, nausea, vomiting, bright red blood per rectum, melena. GENITOURINARY: Negative for any dysuria, hematuria, incontinence. INTEGUMENTARY: Negative for any rashes, cuts, insect bites. RHEUMATOLOGIC: Negative for any joint pains, photosensitive rashes, history of v asculitis or kidney problems. HEMATOLOGIC: Negative for any abnormal bruising, frequent infections or bleeding. PHYSICAL EXAM: GENERAL: Pale, acutely ill female, lethargic, no acute distress. Well-nourished. EYES: EOMI. Anicteric. HENT: Moist mucous membranes. No scleral icterus. No cervical lymphadenopathy. LUNGS: Clear to auscultation bilaterally. No accessory muscle use. CARDIOVASCULAR: Regular rate and rhythm. No murmur. No JVD. ABDOMEN: Soft, non-tender and non-distended. No palpable masses. EXTREMITIES: No edema. Non-tender. SKIN: No rashes or lesions. Warm. NEUROLOGIC: No focal neurological deficits. CN II-XII grossly intact, but not individually tested. PSYCHIATRIC: Cooperative. Appropriate mood and affect. LABORATORY: [ ] Hematology Labs: Test 06/13/24 03:25 06/12/24 13:15 Range/Units White Blood Count 10.5 4.8-10.8 K/uL Red Blood Count 4.09 L 4.50-6.20 MIL/uL Hemoglobin 12.9 L 14.0-18.0 g/dL Hematocrit 37.7 L 42-54 % Mean Corpuscular Volume 92.2 79-99 fL Mean Corpuscular Hemoglobin 31.5 27.0-33.0 pg Mean Corpuscular Hemoglobin Concent 34.2 32.0-36.0 g/dL Red Cell Distribution Width 10.9 L 11.0-15.5 % Platelet Count 228 130-400 K/uL Mean Platelet Volume 9.1 7.5-10.5 fL Immature Granulocyte % (Auto) 1.2 H 0-1 % Neutrophils (%) (Auto) 67.0 40.0-77.0 % Lymphocytes (%) (Auto) 19.0 L 21.0-51.0 % Monocytes (%) (Auto) 11.0 3.0-13.0 % Eosinophils (%) (Auto) 1.4 0.0-8.0 % Basophils (%) (Auto) 0.4 0.0-5.0 % Neutrophils # (Auto) 7.1 1.8-7.7 K/uL Lymphocytes # (Auto) 2.0 1.0-4.8 K/uL Monocytes # (Auto) 1.2 H 0.1-1.0 K/uL Eosinophils # (Auto) 0.15 0.00-0.70 K/uL Basophils # (Auto) 0.04 0.00-0.20 K/uL Absolute Immature Granulocyte (auto 0.13 0-1 K/uL Nucleated Red Blood Cells 0.0 0.0-0.19 % Erythrocyte Sedimentation Rate 26 H 0-15 MM/HR Chemistry Labs: Test 06/13/24 03:25 06/12/24 18:58 06/12/24 10:20 06/12/24 04:09 Range/Units Sodium Level 142 136-145 mmol/L Potassium Level 4.1 3.5-5.1 mmol/L Chloride Level 105 101-111 mmol/L Carbon Dioxide Level 31 21-32 mmol/L Blood Urea Nitrogen 23 H 7-18 mg/dL Creatinine 1.3 0.5-1.3 mg/dL Glomerular Filtration Rate Calc 79 >90 mL/min Random Glucose 94 70-105 mg/dL Total Calcium 8.6 8.5-10.1 mg/dL Phosphorus Level 3.8 2.5-4.9 mg/dL Magnesium Level 1.60 L 1.80-2.40 mg/dL Troponin I High Sensitivity 315 *H 4-75 ng/L C-Reactive Protein, Quantitative 200.20 H 0.5-3.0 mg/L Total Bilirubin 2.1 H 0.2-1.0 mg/dL Aspartate Amino Transf (AST/SGOT) 37 10-37 U/L Alanine Aminotransferase (ALT/SGPT) 24 12-78 U/L Alkaline Phosphatase 59 50-136 U/L Total Protein 6.1 6.0-8.3 g/dL Albumin 2.7 L 3.5-5.0 g/dL Coagulation Labs: Test 06/12/24 10:20 Range/Units Prothrombin Time 12.4 H 9.6-11.6 SEC Prothromb Time International Ratio 1.16 H 0.85-1.15 Activated Partial Thromboplast Time 32.9 26.3-35.5 SEC DIAGNOSTICS / RADIOLOGY: REASON: Rule out DVT ORDERING PHYSICIAN: BABAR HASSAN CNP PROCEDURE: VENOUS NANCY - US VENOUS DOPPLER BILATERAL US VENOUS DOPPLER BILATERAL REASON: Rule out DVT COMPARISON: None Technique: Bilateral upper extremity venous doppler ultrasound was performed with spectral analysis and color flow imaging technique. FINDINGS: There is normal appearance of the visualized portions of the right subclavian vein. Axillary, brachial, cephalic veins appear unremarkable. There is some thrombus in the basilic vein at the site of an IVC. Left upper extremity shows similar findings, subclavian, axial, brachial and cephalic veins appear widely patent with no thrombus. There are some thrombus in the left basilic vein in the forearm. This also is identified a site. IMPRESSION: 1. Thrombus in both peripheral basilic veins, at IV site. 2. Otherwise normal bilateral upper extremity venous Doppler ultrasound. DICTATED BY: DEMETRIUS ALICEA MD DATE: 06/11/24 1657 REASON: seizures ORDERING PHYSICIAN: SIDDHARTHA GOMEZ MD PROCEDURE: BRAIN WWO - MR BRAIN WWO CON MR BRAIN WWO CON REASON: seizures COMPARISON: There are no prior MRI scans available for comparison. TECHNIQUE: Routine cerebral imaging protocol was performed. Images are also obtained pre and post gadolinium contrast infusion. CONTRAST: Clariscan 10 cc FINDINGS: There is normal appearing brain parenchyma. There are no focal mass lesions. There are no areas of abnormal contrast enhancement or abnormal signal intensity. Ventricles and sulci appear normal. Posterior fossa and brainstem structures appear unremarkable. There is no evidence of intracranial hemorrhage. Diffusion-weighted images are negative for an acute ischemic process. There are no abnormal fluid collections. Extracranial soft tissues appear normal as well. IMPRESSION: 1. Normal pre and postcontrast MRI of the brain. DICTATED BY: DEMETRIUS ALICEA MD DATE: 06/11/24 1223 REASON: hypoxia ORDERING PHYSICIAN: BABAR HASSAN CNP PROCEDURE: CXR1VW - CHEST 1VW CHEST 1VW REASON: hypoxia COMPARISON: None. FINDINGS: There are increasing perihilar infiltrates more pronounced on the right than the left. These could represent pneumonia or edema. Lungs are otherwise clear. Heart size is normal. Mediastinum and bony thorax appear unremarkable. ET and NG tubes have been removed. IMPRESSION: 1. Increasing perihilar infiltrates which could be pneumonia or edema. DICTATED BY: DEMETRIUS ALICEA MD DATE: 06/11/24 1046 REASON: evaluate systolic and valve function ORDERING PHYSICIAN: BABAR HASSAN CNP PROCEDURE: ECHO CMP - ECHO 2-D COMPLETE APPROVED REPORT EXAM: Two-dimensional and M-mode echocardiogram with Doppler and color Doppler. INDICATION ICD: Assess LV Function 2D Dimensions RVDd 5.0 cm LVEF(%) 66.4 (>50%) LVED Vol(simp.) 173.0 mL IVSd 1.1 (0.7-1.1cm) FS(%) 37 % LVES Vol(simp.) 61.8 mL LVDd 5.4 (3.8-5.6cm) LA (2D) 3.6 (1.6-4.0cm) LVEF(%, simp.) 64 % PWd 1.2 (0.7-1.1cm) Ao Root(2D) 3.3 (2.0-3.7cm) LA ESV INDEX (4CH) 32.10 mL/m2 IVSs 1.3 cm LVOT diam 2.3 (1.8-2.4cm) LA ESV INDEX (2CH) 32.10 mL/ m2 LVDs 3.4 (2.5-4.0cm) LA ESV INDEX (BP) 32.90 mL/m2 PWs 1.7 cm M-Mode Dimensions EPSS 1.5 cm LA (MM) 3.7 (1.6-4.0cm) Ao Root(MM) 3.1 (2.0-3.7cm) Aortic Valve AoV VTI 0.4 m Ao Mean GR 10.0 mmHg LVOT VTI 0.28 m LUCERO (VMAX) 3.2 cm2 LUCERO (VTI) 3.2 cm2 Mitral Valve MV E Vmax 111.6 cm/s DECEL Time 187 ms MV A Vmax 73.2 cm/s P 1/2 T 57 ms E/A ratio 1.5 MVA (PHT) 3.9 cm2 TDI E/E' Medial 11.7 E/E' Lateral 10.9 Medial E' Peak V 9.50 cm/s Lateral E' Peak V 10.20 cm/s Left Ventricle The left ventricle structure and function is normal. There is normal LV segmental wall motion. Mild concentric LVH. LVEF is 60-65%. The left ventricular diastolic function is normal. Right Ventricle The right ventricle is moderately dilated with an RVIDd of 5.0 cm. The right ventricular systolic function is normal. Atria The left atrium size is normal. The right atrium is moderately dilated. Aortic Valve The aortic valve is normal in structure and function. No aortic regurgitation is present. There is no aortic valvular stenosis. Mitral Valve The mitral valve is normal in structure and function. There is no mitral valve regurgitation noted. There is no mitral valve stenosis. Tricuspid Valve The tricuspid valve is normal in structure and function. There is no tricuspid valve regurgitation noted. Pulmonic Valve The pulmonary valve is normal in structure and function. There is no pulmonic valvular regurgitation. Great Vessels The aortic root is normal in size. The IVC is normal in size and collapses >50% with inspiration. Pericardium No pericardial effusion. Conclusion Mild concentric LVH. LVEF is 60-65%. There is normal LV segmental wall motion. The left ventricular diastolic function is normal. The right ventricle is moderately dilated with an RVIDd of 5.0 cm. The aortic valve is normal in structure and function. There is no mitral valve regurgitation noted. No pericardial effusion. DICTATED BY: CAPRI PINTO MD DATE: 06/10/24903 REASON: REVERIFICATION OF ET TUBE PLACEMENT. ORDERING PHYSICIAN: BABAR HASSAN [facility] PROCEDURE: CXR1VW - CHEST 1VW PORTABLE CHEST RADIOGRAPH INDICATION: REVERIFICATION OF ET TUBE PLACEMENT. COMPARISON: 06/10/2024 at 7:49 AM FINDINGS: Tip of endotracheal tube located 5.4 cm above the kalie. Tip of NG tube within the stomach. Heart size is normal. The pulmonary vascularity and hollis appear normal. No evidence for consolidation. Suspect small layering right greater than left pleural effusions. No pneumothorax detected. IMPRESSION: Tip of NG tube located 5.4 cm above the kalie. Suspect small layering right greater than left pleural effusions. DICTATED BY: LIVIER BA MD DATE: 06/10/24903 REASON: et tube placement verification ORDERING PHYSICIAN: ONEYDA DALEY MD PROCEDURE: CXR1VW - CHEST 1VW FRONTAL CHEST RADIOGRAPH INDICATION: et tube placement verification COMPARISON: 06/02/2024 at 4:34 AM FINDINGS/IMPRESSION: nuclear monitoring technician leads overlie the field of view. Tip of endotracheal tube located 5.5 cm above the kalie. 2 cm advancement would be ideal. Remainder of the study is unchanged. DICTATED BY: LIVIER BA MD DATE: 06/10/24908 REASON: intubated ORDERING PHYSICIAN: BABAR HASSAN [facility] PROCEDURE: CXR1VW - CHEST 1VW PORTABLE CHEST RADIOGRAPH INDICATION: intubated COMPARISON: 06/09/2024 FINDINGS/IMPRESSION: nuclear monitoring technician leads overlie the field of view. Stable endotracheal and nasogastric tubes, including tip of endotracheal tube located 5.6 cm above the kalie. Stable heart size and favorable decrease in right lung airspace disease, without pneumothorax. DICTATED BY: LIVIER BA MD DATE: 06/10/24948 REASON: Decreased renal function ORDERING PHYSICIAN: FRANSISCO ALVARADO PROCEDURE: RENAL - US RENAL SONOGRAM Exam: Renal and bladder sonogram Reason: Renal failure. FINDINGS: Right kidney is 12.4 x 7.2 x 7.1 cm, left 11.0 x 6.2 x 7.0 cm. There is no mass, stone or hydronephrosis. Cortical thickness is preserved however there is increased echogenicity consistent with a component of chronic renal disease. There is a Dykes catheter in a nondistended urinary bladder. IMPRESSION: 1. Echogenic kidneys consistent with chronic renal disease, size and cortical thickness well preserved. DICTATED BY: DEMETRIUS ALICEA MD DATE: 06/09/24 165 REASON: Hypoxia, intubated ORDERING PHYSICIAN: BABAR HASSAN CNP PROCEDURE: CXR1VW - CHEST 1VW CHEST 1VW REASON: Hypoxia, intubated COMPARISON: 06/08/2024 FINDINGS: Right upper lobe infiltrate persists, there is now patchy infiltrate in the right lower lobe as well. Left lung appears clear. Heart size is normal. ET and NG tubes remain in place. IMPRESSION: 1. Increasing infiltrate in the right lung. 2. ET and NG tubes in good position. DICTATED BY: DEMETRIUS ALICEA MD DATE: 06/09/24 1012 REASON: Seizure ORDERING PHYSICIAN: DALJIT MCDONNELL MD PROCEDURE: HEAD WO - CT HEAD/BRAIN W/O CONTRAST Exam: NONCONTRAST CT BRAIN REASON: Seizure . COMPARISON: None. TECHNIQUE: Images are obtained from vertex to the skull base. The exam was performed without IV contrast. FINDINGS: There is normal appearing brain parenchyma. There are no focal mass lesions. There is is no evidence of intracranial hemorrhage or acute stroke. Ventricles and sulci appear normal. Posterior fossa and brainstem structures are unremarkable. Paranasal sinuses and remaining extracranial soft tissues appear normal as well. IMPRESSION: 1. Normal noncontrast CT brain. CT was performed with one or more following dose reduction techniques: automated exposure control, adjustment of the mA and kv according to patient's size, or use of a iterative reconstruction technique. DICTATED BY: DEMETRIUS ALICEA MD DATE: 06/08/24 0819 REASON: S/P INTUBATION ORDERING PHYSICIAN: DALJIT MCDONNELL MD PROCEDURE: CXR1VW - CHEST 1VW CHEST 1VW REASON: S/P INTUBATION COMPARISON: None. FINDINGS: There is a right upper lobe infiltrate consistent with pneumonia. Lungs are otherwise clear. Heart size is normal with no vascular congestion. There is an ET tube with tip in good position at midclavicular point, 4 cm above the kalie. There is an NG tube in the stomach. IMPRESSION: 1. Right upper lobe infiltrate consistent with pneumonia. 2. ET and NG tubes in good position. DICTATED BY: DEMETRIUS LAICEA MD DATE: 06/08/24 0844 ASSESSMENT: Hyperkalemia Acute renal failure Postictal Acute metabolic encephalopathy Acute hypoxic respiratory failure Intubated in ED on 06/08 given lethargy to save airway Bilateral upper lobe opacity concerning for aspiration pneumonitis versus community acquired pneumonia Sepsis without septic shock High anion gap metabolic acidosis- resolved Leukocytosis with left shift Hyperglycemia History of seizures, vaping, former cocaine abuse PLAN: Labs, diagnostic, radiologic exams reviewed and interpreted by myself and supervising physician. We have reviewed external records in detail There is no need for renal replacement therapy From the nephrology standpoint, patient may be discharged Follow-up in the renal clinic in 1-3 weeks. We will continue to monitor intake and output. Replace electrolytes as needed. Please renally adjust medications Require close monitoring of renal function and electrolytes Order CBC, CMP, uric acid, and electrolytes in am Continue with renally dosed antibiotics IV pressors as needed Monitor blood pressure adjust medication doses as needed Avoid hypotensive episodes May use Dilaudid 0.5 mg IV every 6 hours as needed for severe pain Monitor blood sugars Strict intake, output, and daily weight should be monitored Please renally adjust medications Avoid nephrotoxic and nonsteroidal drugs Avoid contrast if possible Will continue to monitor renal function, anemia, electrolytes Treatment plan discussed with patient Questions were answered We have discussed with the other team physicians in detail about the care plan We will continue to monitor the patient closely ATTESTATION BY PHYSICIAN I have seen and examined the patient. I reviewed the documentation, medical decision making, and treatment plan as noted by the mid-level provider above. I agree with the findings and plan of care. ASHWINI BANDA MD, [facility] Jun 13, 2024 09:41
--- NOTE | 2024-06-13 11:21 | PN ---
[facility] CARDIOLOGY PROGRESS NOTE Cardiology progress note dictated for Rosaline Loredo MD Primary senior systems administrator: Jessica Gamboa MD Date Patient Seen: Jun 13, 2024 Interval History: This is a 24y/o male with a past medical history of seizure disorder, noncompliant with AED therapy and polysubstance abuse (cocaine, THC, and tobacco) who originally presented on 06/08/2024 with recurrent seizure. As per the patient's , the patient has 3 seizures back to back that occurred while the patient was sleeping. There were no reported precipitating symptoms, and the duration of each seizure is unknown. There was reported loss of bladder function and post ictal state, but no reported loss of bowel function. The patient's hospital course was complicated by the need for intubation with mechanical ventilation, and was successfully extubated on 06/11/2024. While on the inpatient service, laboratory data identified an elevated high sensitivity troponin I level. Cardiology was consulted for treatment recommendations. Today, he is up standing on the way out to walk in the layne, in no acute distress. He denies chest pain, palpitations, shortness of breath, dizziness, nausea or vomiting. He endorses a sore throat, a productive cough and a headache. Telemetry demonstrates NSR. Physical Examination: GENERAL: No acute distress. HEAD: Normal with no signs of head trauma. EYES: PERRLA, EOMI, conjunctiva and sclera normal. NECK: Supple without JVD. There is no tenderness, lymphadenopathy, or masses. No thyromegaly. Normal carotid upstrokes without bruits. LUNGS: Rales to bases bilaterally. HEART: Normal rate and rhythm. Normal S1 and S2 without murmurs, gallop or rub. VASC: Peripheral pulses +2 bilaterally. EXT: No clubbing, cyanosis or edema. NEURO: Awake, alert, and oriented x3. No focal neurological deficits noted. Laboratory: Hematology Labs: Test 06/13/24 03:25 06/12/24 13:15 Range/Units White Blood Count 10.5 4.8-10.8 K/uL Red Blood Count 4.09 L 4.50-6.20 MIL/uL Hemoglobin 12.9 L 14.0-18.0 g/dL Hematocrit 37.7 L 42-54 % Mean Corpuscular Volume 92.2 79-99 fL Mean Corpuscular Hemoglobin 31.5 27.0-33.0 pg Mean Corpuscular Hemoglobin Concent 34.2 32.0-36.0 g/dL Red Cell Distribution Width 10.9 L 11.0-15.5 % Platelet Count 228 130-400 K/uL Mean Platelet Volume 9.1 7.5-10.5 fL Immature Granulocyte % (Auto) 1.2 H 0-1 % Neutrophils (%) (Auto) 67.0 40.0-77.0 % Lymphocytes (%) (Auto) 19.0 L 21.0-51.0 % Monocytes (%) (Auto) 11.0 3.0-13.0 % Eosinophils (%) (Auto) 1.4 0.0-8.0 % Basophils (%) (Auto) 0.4 0.0-5.0 % Neutrophils # (Auto) 7.1 1.8-7.7 K/uL Lymphocytes # (Auto) 2.0 1.0-4.8 K/uL Monocytes # (Auto) 1.2 H 0.1-1.0 K/uL Eosinophils # (Auto) 0.15 0.00-0.70 K/uL Basophils # (Auto) 0.04 0.00-0.20 K/uL Absolute Immature Granulocyte (auto 0.13 0-1 K/uL Nucleated Red Blood Cells 0.0 0.0-0.19 % Erythrocyte Sedimentation Rate 26 H 0-15 MM/HR Chemistry Labs: Test 06/13/24 03:25 06/12/24 18:58 06/12/24 10:20 06/12/24 04:09 Range/Units Sodium Level 142 136-145 mmol/L Potassium Level 4.1 3.5-5.1 mmol/L Chloride Level 105 101-111 mmol/L Carbon Dioxide Level 31 21-32 mmol/L Blood Urea Nitrogen 23 H 7-18 mg/dL Creatinine 1.3 0.5-1.3 mg/dL Glomerular Filtration Rate Calc 79 >90 mL/min Random Glucose 94 70-105 mg/dL Total Calcium 8.6 8.5-10.1 mg/dL Phosphorus Level 3.8 2.5-4.9 mg/dL Magnesium Level 1.60 L 1.80-2.40 mg/dL Troponin I High Sensitivity 315 *H 4-75 ng/L C-Reactive Protein, Quantitative 200.20 H 0.5-3.0 mg/L Total Bilirubin 2.1 H 0.2-1.0 mg/dL Aspartate Amino Transf (AST/SGOT) 37 10-37 U/L Alanine Aminotransferase (ALT/SGPT) 24 12-78 U/L Alkaline Phosphatase 59 50-136 U/L Total Protein 6.1 6.0-8.3 g/dL Albumin 2.7 L 3.5-5.0 g/dL Coagulation Labs: Test 06/12/24 10:20 Range/Units Prothrombin Time 12.4 H 9.6-11.6 SEC Prothromb Time International Ratio 1.16 H 0.85-1.15 Activated Partial Thromboplast Time 32.9 26.3-35.5 SEC Diagnostics / Radiology: Impression and Plan: -Breakthrough seizures, noncompliant with AED therapy -Acute hypoxemia respiratory failure s/p intubation on 06/08/2024, extubated 06/11/2024 -Leukocytosis -Lactic acidosis -UTI -RUL PNA (aspiration vs CAP) -Elevated CK, now normalized -KRYSTAL, improved -Electrolyte derangement -Elevated troponin -Normal LV systolic function (LVEF: 60-65% by echo done 06/10/2024) -Positive JORDANA with elevated SS-A/Ro antibody and decreased complement C4, concerning for SLE -Polysubstance abuse (cocaine, THC, and tobacco) 1. Elevated troponin -Cardiac enzymes-HS troponin I: 454>366>315 -ECG 06/12/2024: Sinus rhythm with T wave inversions in leads I and aVL, QTc: 482 ms, HR: 66 bpm -ECG 06/13/2024: Sinus rhythm with T wave inversions in leads I and aVL, QTc: 442 ms, HR: 75 bpm -2D echocardiogram 06/09/2024: Mild concentric LVH with no regional wall motion abnormalities noted. LV systolic function is normal with an estimated LVEF of 60-65%. The RA and RV are moderately dilated. No valvular abnormalities noted. No pericardial effusion. -The patient presented with recurrent breakthrough seizures, but denies any chest pain, chest pressure, palpitations, or shortness of breath. -The elevated troponin is thought to be a type II NH (demand ischemia) induced by the recurrent breakthrough seizure, acute respiratory failure requiring temporary intubation and mechanical ventilation, leukocytosis, lactic acidosis, and KRYSTAL and not secondary to ACS. -If there is concern for the accelerated development of CAD, then a CCTA can be ordered to further evaluate this issue. However, in the meantime, we recommend continuing to treat the above mentioned inciting factors. -Please keep the patient on continuous telemetry monitoring and maintain electrolytes within normal parameters. -This morning, the third Troponin is downtrending at 315, and repeat EKG is the same as the previous EKG. -Recommend a repeat Echo with bubble study to exclude intra-atrial shunt given RV dilatation as an outpatient, cardiology will sign off. Follow-up with Dr. Shlomo Gamboa in 7-10d after discharge. KRISTI [facility] Jun 13, 2024 11:20
--- NOTE | 2024-06-13 15:46 | PN ---
[facility] PROGRESS NOTE Date Patient Seen: Jun 13, 2024 Time of Visit: 15:41 Supervising Physician: Asvhin Boyle Primary Care Physician: Never seen a PCP Outpatient Specialists: [facility] Inpatient Consults: Dr. Ventura, PROBLEM LIST: Postictal- resolved Acute metabolic encephalopathy secondary to above - resolved Acute hypoxic respiratory failure Intubated in ED on 06/08 given lethargy to save airway Extubated on 06/10 Left arm phlebitis- Positive for bilateral superficial basilic veins, negative for DVT Acute renal failure secondary to ATN from sepsis Bilateral upper lobe opacity concerning for aspiration pneumonitis versus community acquired pneumonia Sepsis without septic shock- resolved High anion gap metabolic acidosis- resolved Leukocytosis with left shift Hyperglycemia History of seizures, vaping, former cocaine abuse INTERVAL HISTORY: 06/09 patient remains intubated on mechanical ventilator with ACVC 16/450/8/45%. His ABG this morning with the pH 7.28 pCO2 44 PO2 of 136 bicarb of 20, O2 sat is 98%. Base excess-6.2. His lactic acid is down to 1.5. His potassium is 5.2 bicarb is 25 up from 12. Creatinine though went up to 3.8 from 1.4. We will give IVF NS bolus this morning and continue with IV maintenance. Repeat BMP levels in the afternoon. we can send sputum culture. Chest x-ray this morning is with manifestation of opacity bilaterally. Continue with Zosyn and start patient on doxycycline. MRSA is negative. Flu and COVID are negative. Otherwise no event overnight. Continue with the anti epileptic drug of choice with Keppra, neurology is following. EEG pending. Continue to wean down sedation as tolerated, now on versed, propofol, and fentanyl. may not be candidate for SBT 06/10 patient had episodes of severe agitation this morning after he was given sedation holiday inadvertently from inadequate IV access. We gave him anxiolytic Geodon. At the moment, patient is resting , Vital signs blood p ressure 136/76 map is 96. Heart rate is 77 and T-max 99.0. He is on ACVC 16/450/5/40%. ABG this morning with the pH 7.24, pCO2 44, PO2 103 bicarb is 18.6 base excess-8.5. His serum bicarb is 23 potassium is 5.5 and creatinine is down to 4.3 from 4.4. Patient has no anion gap metabolic acidosis. We will start patient on bicarb drip given refractory acidosis. Patient has no di arrhea. He has put out better urine output at 2.5L. Balance positive 5.5 L. continue to monitor I/O very closely. Liver function is normal. Culture negative to date. Continue current antibiotic. Continue with current sedation fentanyl, Versed. Start Precedex if tolerated. SBT when patient is following commands appropriately. 06/11 patient has been extubated yesterday, now he is on Oxymizer at 15 L. Saturation oxygen is 94%. Continue to wean down O2 as tolerated, keep sat >92%. Patient has fever this morning with T Max is 101.7. We will obtain blood culture. Send UA. Can discontinue Dykes catheter. Patient has phlebitis in the left arm, avoid using this arm for blood pressure measurement. Keep it elevated. Warm compresses. Remove IV from left arm. This morning with WBC 14.5 down from 14.6. Continue antibiotics: cefepime, doxy, and flagyl. Obtain chest xray . Hemoglobin is 12.1. Chemistry with bicarb 31. Sodium 146. BUN is 34 this is down from 46 and creatinine is 2.6 this is down from 4.3. Patient has put out 4.3 L of urine output with -300 cc balance. Liver function with total bilirubin of 1.3 this is up from 0.7 yesterday AST and ALT are within normal limits. Avoid hepatotoxin drugs. 06/12 patient is awake alert oriented x3 lying down in bed not in acute distress, has been downgraded to PCU now only on 2 L nasal cannula. Saturation on oxygen is 92 to 97%. Continue to wean off oxygen as tolerated to keep sats more than 92%. Otherwise patient had fever last night 100.8. However, WBC is 13 down from 14 hemoglobin stable at 12.2. His chemistry with creatinine down to 1.6 from 2.6 and he has put out 3.5 L of urine output with balance negative 1.5 L. his LFT though with total bilirubin up to 2.1 from 1.3 AST and ALT are normal. Patient had elevated troponin at 450. EKG with no ST elevation, cardiology has been consulted per primary. Otherwise we can decrease nebulizer. Discontinue steroid. If no intervention from Cardiology we can downgrade patient to medical-surgical. 06/13 patient is awake alert and oriented lying down in bed on his phone accompanied by his at the bedside, no acute event overnight. Patient is on room air at the moment his oxygen saturation is 92%. Blood pressure 150/90 heart rate is 69 T-max 99.5. Respiratory rate is 18. Otherwise lab this morning with WBC down to 10 from 13 hemoglobin stable at 12. Chemistry with creatinine of 1.3 this is down from 1.6 and this has normalized. His troponin level is down to 315 patient is pending coronary CTA. No chest pain at the moment. Continue with antiseizure medication. From critical/ pulmonary standpoint, he is stable. We can downgrade him to medical-surgical. We will be available to assist if needed. Thank you for allowing us to participate in the care of this patient. REVIEW OF SYSTEMS: 12 point ROS reviewed with patient. Pertinent positives mentioned above. Otherw ise negative. PHYSICAL EXAM: GENERAL: AAOX3, appropriate. HEENT: EOMI, Sclera non icteric, moist mucosa NECK: Supple, no JVD, trachea midline LUNGS: Rales on upper lobes. No wheezing. HEART: Regular rate and rhythm. Normal S1 and S2, without murmurs ABD: Abdomen soft, nontender. Bowel sounds present EXT: No clubbing cyanosis or edema NEURO: no unilateral weakness. Vital Signs (last 8hr) Date Time Temp Pulse Resp B/P (MAP) Pulse Ox O2 Delivery O2 Flow Rate FiO2 06/13/24 10:50 98.6 69 18 156/90 92 Room Air 06/13/24 07:45 96 Room Air* 0 N/A Aerosol Mask+ LABS: Hematology Labs: Test 06/13/24 03:25 06/12/24 13:15 Range/Units White Blood Count 10.5 4.8-10.8 K/uL Red Blood Count 4.09 L 4.50-6.20 MIL/uL Hemoglobin 12.9 L 14.0-18.0 g/dL Hematocrit 37.7 L 42-54 % Mean Corpuscular Volume 92.2 79-99 fL Mean Corpuscular Hemoglobin 31.5 27.0-33.0 pg Mean Corpuscular Hemoglobin Concent 34.2 32.0-36.0 g/dL Red Cell Distribution Width 10.9 L 11.0-15.5 % Platelet Count 228 130-400 K/uL Mean Platelet Volume 9.1 7.5-10.5 fL Immature Granulocyte % (Auto) 1.2 H 0-1 % Neutrophils (%) (Auto) 67.0 40.0-77.0 % Lymphocytes (%) (Auto) 19.0 L 21.0-51.0 % Monocytes (%) (Auto) 11.0 3.0-13.0 % Eosinophils (%) (Auto) 1.4 0.0-8.0 % Basophils (%) (Auto) 0.4 0.0-5.0 % Neutrophils # (Auto) 7.1 1.8-7.7 K/uL Lymphocytes # (Auto) 2.0 1.0-4.8 K/uL Monocytes # (Auto) 1.2 H 0.1-1.0 K/uL Eosinophils # (Auto) 0.15 0.00-0.70 K/uL Basophils # (Auto) 0.04 0.00-0.20 K/uL Absolute Immature Granulocyte (auto 0.13 0-1 K/uL Nucleated Red Blood Cells 0.0 0.0-0.19 % Erythrocyte Sedimentation Rate 26 H 0-15 MM/HR Chemistry Labs: Test 06/13/24 03:25 06/12/24 18:58 06/12/24 10:20 06/12/24 04:09 Range/Units Sodium Level 142 136-145 mmol/L Potassium Level 4.1 3.5-5.1 mmol/L Chloride Level 105 101-111 mmol/L Carbon Dioxide Level 31 21-32 mmol/L Blood Urea Nitrogen 23 H 7-18 mg/dL Creatinine 1.3 0.5-1.3 mg/dL Glomerular Filtration Rate Calc 79 >90 mL/min Random Glucose 94 70-105 mg/dL Total Calcium 8.6 8.5-10.1 mg/dL Phosphorus Level 3.8 2.5-4.9 mg/dL Magnesium Level 1.60 L 1.80-2.40 mg/dL Troponin I High Sensitivity 315 *H 4-75 ng/L C-Reactive Protein, Quantitative 200.20 H 0.5-3.0 mg/L Total Bilirubin 2.1 H 0.2-1.0 mg/dL Aspartate Amino Transf (AST/SGOT) 37 10-37 U/L Alanine Aminotransferase (ALT/SGPT) 24 12-78 U/L Alkaline Phosphatase 59 50-136 U/L Total Protein 6.1 6.0-8.3 g/dL Albumin 2.7 L 3.5-5.0 g/dL Coagulation Labs: Test 06/12/24 10:20 Range/Units Prothrombin Time 12.4 H 9.6-11.6 SEC Prothromb Time International Ratio 1.16 H 0.85-1.15 Activated Partial Thromboplast Time 32.9 26.3-35.5 SEC DIAGNOSTICS / RADIOLOGY RESULTS: [ ] PLAN NEURO: Minimize central acting medications as possible. Maintain fall precautions, adequate lighting during the day AED PULMONARY: Supplemental 02 as needed. Maintain aspiration precautions at all times CARDIOVASCULAR: Follow hemodynamics. Vital signs per facility protocol GI & NUTRITION: Continue with nutritional support. Continue stool softeners and laxatives as needed. KIDNEYS & ELECTROLYTES: Strict monitoring of intake, output and overall fluid balance. Avoid nephrotoxic medications to the extent possible. Medications to be dosed according to renal function. Monitor electrolytes and replace as needed ENDOCRINE: Maintain blood glucose between 100-180 at all times. Hypoglycemia protocol in place INFECTIOUS DISEASE: Trend temperature, WBC and procalcitonin level Follow cultures, deescalate antibiotics as soon as possible. Panculture if new onset fever ONCOLOGY/HEMATOLOGY/COAGULATION: Monitor for s/s of bleeding Monitor hemoglobin, coagulation studies as needed SKIN: Pressure ulcer prevention per facility protocol Specialty mattress ORTHO/REHAB: Continue PT/OT Prophylaxis: Continue GI and DVT prophylaxis Code Status: Full Resuscitation Disposition: TBD Other: Total patient care time exceeds 35 minutes excluding all procedures. BABAR HASSAN PUBLIC WORKS INSPECTOR Jun 13, 2024 15:46
[2024-06-13] MEDS: BENZOCAINE/MENTH/CETYLPYRD CL 1 EACH LOZENGE MM ONE (21:56)
[2024-06-14] VITALS (7 sets, daily range): BP systolic 119–144; BP diastolic 68–80; PULSE 63–79; RESP 16–18; TEMP 98.1–99.2; O2SAT 95–98
[2024-06-14 04:57] LABS: BASOPHILS # (AUTO) 0.04 K/uL (0.00-0.20); BASOPHILS % (AUTO) 0.3 % (0.0-5.0); EOSINOPHILS % (AUTO) 2.5 % (0.0-8.0); HEMATOCRIT 38.2 % (42-54); LYMPHOCYTES # (AUTO) 2.6 K/uL (1.0-4.8); LYMPHOCYTES % (AUTO) 22.1 % (21.0-51.0); MEAN CORPUSCULAR HEMOGLOBIN 31.4 pg (27.0-33.0); MEAN CORPUSCULAR HGB CONC 33.8 g/dL (32.0-36.0); MEAN CORPUSCULAR VOLUME 92.9 fL (79-99); MONOCYTES # (AUTO) 1.4 K/uL (0.1-1.0); MONOCYTES % (AUTO) 11.9 % (3.0-13.0); NEUTROPHILS # (AUTO) 7.3 K/uL (1.8-7.7); NEUTROPHILS % (AUTO) 61.5 % (40.0-77.0); PLATELET COUNT (AUTO) 268 K/uL (130-400); RED BLOOD CELL COUNT(AUTO) 4.11 MIL/uL (4.50-6.20); WHITE BLOOD COUNT (AUTO) 11.8 K/uL (4.8-10.8)
[2024-06-14 05:09] LABS: CREATININE 1.3 mg/dL (0.5-1.3); MAGNESIUM 1.6 mg/dL (1.80-2.40); PHOSPHORUS 4.6 mg/dL (2.5-4.9); POTASSIUM 3.9 mmol/L (3.5-5.1)
[2024-06-14] MEDS ORDERED: MAGNESIUM 2GM PREMIX 50ML 50 ML IV SCH (12:30)
--- NOTE | 2024-06-14 12:30 | PN ---
[facility] PROGRESS NOTE Date of Service: Jun 14, 2024 Time of Service: 12:30 SUBJECTIVE: 06/09 patient seen at bedside, no acute events overnight. He remains intubated and sedated. He is currently on an FiO2 of 40% with a tidal volume of 450 and a PEEP of 8, saturating at 100%. We will decrease PEEP down to 5 and continue to monitor. According to ventilator settings he may be a good candidate for extubation, we will defer to critical Care for extubation. Patient did have a sedation vacation however he was unmanageable and had to be sedated again, we will repeat tomorrow in an attempt to try to extubate. His creatinine increased from 1.4 up to 3.8, he has not been running any start him on normal saline at 180 cc/hour and continue to monitor urine output. He is likely a little bit dehydrated due to being NPO for prolonged period of time. He has been assessed by Neurology who adjusted his Keppra to a 1000 mg twice daily and they recommended MRI. He will likely get the MRI once he has been extubated. EEG is also pending, we will follow up. Blood cultures are no growth to date, urine culture is still pending. Urine tox positive for marijuana no other substances. 06/10 patient seen at bedside, no acute events overnight. He remains intubated and sedated. Every time sedation is weaned he becomes agitated and began pulling at all his lines, he is sedated once again. We will defer to critical Care for extubation. Patient showing proteinuria and glucosuria which is not normal for a young male his age. He has no history of diabetes. We will initiate further workup to discover the source of his proteinuria. We will order an JORDANA with reflex, p-ANCA and C ANCA and IgA. We will also order an HIV panel and follow up. Creatinine peaked at 4.4 before trending down to 4.3 today, he has adequate urine output with a proximally 2 L in the last 24 hours. Remaining vitals and labs are relatively unremarkable. He has been started on tube feeds and we will continue until he is extubated. 06/11 patient seen at bedside, no acute events overnight. He was successfully extubated and is currently saturating well on 2 L nasal cannula. HIV panel was negative, autoimmune workup is still pending for his proteinuria. We will follow up with Nephrology recommendations. WBC stable at 14.5, similar to yesterday, sodium improved, creatinine improved from 4.3 down to 2.6, remainder of his labs are relatively unremarkable. Repeat UA today showed resolution of proteinuria and glucosuria, given these findings the proteinuria was likely a cute in temporary in nature. MRI of brain is still pending, we will follow up 06/12 patient seen at bedside, he has had low-grade fevers overnight. Patient has difficult stick we will place a midline to resume his IV antibiotics. In the meantime have transitioned most of his antibiotics to p.o. except for cefepime. Patient also noted to have T wave changes on his EKG and troponin was ordered noted to be elevated in the 400s. We will consult Cardiology for recommendations. The patient's autoimmune panel showed a positive JORDANA and anti- SSA/Ro antibody with a decreased C4 normal C3 complement which is concerning for possible underlying autoimmune disease. Given the constellation of symptoms with seizures and markers of stress on the heart is in an otherwise healthy young male this is concerning for an autoimmune vasculitis or mixed connective tissue disease. We will order an ESR and CRP to assess for underlying inflammation and continue with systemic steroids at this point. 06/13 patient seen at bedside, no acute events overnight. Discussed case with Cardiology, given the clinical picture they agree a coronary CTA would be indic ated prior to discharge, likely will not be able to be done until Friday. He has been afebrile, hemodynamically stable saturating well on room air. He reports that he is feeling better today. Labs are relatively unremarkable. Troponins are trending down. Upon discharge he will need to follow up with the neurologist and we will need a referral to see a restoration officer. 06/14 patient is seen and examined, no acute events overnight, plan for discharge home today. REVIEW OF SYSTEMS 12 point ROS negative unless noted in HPI PHYSICAL EXAM GENERAL APPEARANCE: The patient is awake, alert, and oriented, in no acute cardiopulmonary distress. NEUROLOGICAL: Cranial nerves II-XII grossly intact. Motor is 5/5 in bilateral upper and lower extremities proximal to distal. No sensory deficits. HEENT: Face is symmetric. Pupils are equal and reactive. Extraocular movements are intact. NECK: Supple. No JVD. No thyromegaly. No submental, submandibular, pre- /postauricular, occipital or supraclavicular lymphadenopathy. CHEST: Normal chest expansion. No Telemetry. LUNGS: Absence of any rales, rhonchi or any wheezing. CARDIOVASCULAR: Regular. S1 and S2 normal. No appreciable rubs, murmurs or gallops. ABDOMEN: Soft, nontender, and nondistended. There is no rebound, voluntary guarding, or rigidity. : Deferred. No Dykes. EXTREMITIES: Non-edematous and not cyanotic. No clubbing. Good capillary refill. SKIN: No skin breakdown. Vital Signs (last 8hr) Date Time Temp Pulse Resp B/P (MAP) Pulse Ox O2 Delivery O2 Flow Rate FiO2 06/14/24 11:59 99.1 67 18 119/72 97 Room Air 06/14/24 07:15 95 Room Air* 0 N/A Aerosol Mask+ 06/14/24 07:11 76 18 06/14/24 07:10 76 18 N/A Room Air 21 06/14/24 07:00 98.8 79 16 144/80 95 Room Air LABS: Laboratory: Test 06/14/24 04:34 06/12/24 18:58 06/12/24 13:15 Range/Units White Blood Count 11.8 H 4.8-10.8 K/uL Red Blood Count 4.11 L 4.50-6.20 MIL/uL Hemoglobin 12.9 L 14.0-18.0 g/dL Hematocrit 38.2 L 42-54 % Mean Corpuscular Volume 92.9 79-99 fL Mean Corpuscular Hemoglobin 31.4 27.0-33.0 pg Mean Corpuscular Hemoglobin Concent 33.8 32.0-36.0 g/dL Red Cell Distribution Width 11.0 11.0-15.5 % Platelet Count 268 130-400 K/uL Mean Platelet Volume 9.2 7.5-10.5 fL Immature Granulocyte % (Auto) 1.7 H 0-1 % Neutrophils (%) (Auto) 61.5 40.0-77.0 % Lymphocytes (%) (Auto) 22.1 21.0-51.0 % Monocytes (%) (Auto) 11.9 3.0-13.0 % Eosinophils (%) (Auto) 2.5 0.0-8.0 % Basophils (%) (Auto) 0.3 0.0-5.0 % Neutrophils # (Auto) 7.3 1.8-7.7 K/uL Lymphocytes # (Auto) 2.6 1.0-4.8 K/uL Monocytes # (Auto) 1.4 H 0.1-1.0 K/uL Eosinophils # (Auto) 0.30 0.00-0.70 K/uL Basophils # (Auto) 0.04 0.00-0.20 K/uL Absolute Immature Granulocyte (auto 0.20 0-1 K/uL Nucleated Red Blood Cells 0.0 0.0-0.19 % Sodium Level 143 136-145 mmol/L Potassium Level 3.9 3.5-5.1 mmol/L Chloride Level 105 101-111 mmol/L Carbon Dioxide Level 31 21-32 mmol/L Blood Urea Nitrogen 19 H 7-18 mg/dL Creatinine 1.3 0.5-1.3 mg/dL Glomerular Filtration Rate Calc 79 >90 mL/min Random Glucose 95 70-105 mg/dL Total Calcium 8.7 8.5-10.1 mg/dL Phosphorus Level 4.6 2.5-4.9 mg/dL Magnesium Level 1.60 L 1.80-2.40 mg/dL Troponin I High Sensitivity 315 *H 4-75 ng/L Erythrocyte Sedimentation Rate 26 H 0-15 MM/HR Current Medications Medications (Trade) Dose Ordered Sig/Samantha Route PRN Reason Start Time Stop Time Status Last Admin Dose Admin Acetaminophen (TYLenol 325MG TAB) 650 mg Q6H PRN PO TEMPERATURE GREATER THAN 101.5 06/08/24 08:30 07/08/24 08:29 06/12/24 00:31 650 MG Albuterol (DUOneb) 1 udvial Q12H IH 06/12/24 18:00 07/08/24 11:59 06/14/24 07:11 1 UDVIAL Albuterol (DUOneb) 1 udvial [id number] IH 06/08/24 12:00 06/12/24 10:25 DC 06/12/24 07:01 1 UDVIAL Azithromycin 250 ml @ 250 mls/hr Q24H IVPB 06/08/24 08:30 06/08/24 08:42 DC Benzocaine (Hurricaine/ [place] 20% Perla) 1 SPRAY AD TP 06/11/24 13:00 07/11/24 12:59 06/11/24 12:45 1 MCG Cefepime HCl (MAXipime 1 GM vial) 1 gm DAILY IVPB 06/10/24 09:00 06/12/24 08:27 DC 06/11/24 08:26 1 GM Cefepime HCl (MAXipime 2 gm vial) 2 gm Q24H IVPB 06/09/24 14:30 06/09/24 18:00 DC 06/09/24 15:00 2 GM Cefepime HCl (MAXipime 2 gm vial) 2 gm Q8H IVPB 06/12/24 10:30 06/22/24 10:29 06/14/24 10:48 2 GM Ceftriaxone Sodium (Rocephin 2gm Inj) 2 gm Q24H IVPB 06/08/24 17:00 06/08/24 08:42 DC Dexmedetomidine/ Sodium Chloride (PRECEdex 400MCG/ 100ML-NS) 400 mcg PROTOCOL IV 06/09/24 14:30 06/10/24 11:40 DC 06/10/24 11:33 400 MCG Dexmedetomidine/ Sodium Chloride (PRECEdex 400MCG/ 100ML-NS) 400 mcg PROTOCOL IV 06/10/24 11:30 06/11/24 10:09 DC Diazepam (VALium 5 mg TAB) 10 mg Q6H PO 06/09/24 14:30 06/12/24 10:10 DC 06/12/24 09:42 10 MG Doxycycline Hyclate 250 ml @ 125 mls/hr Q12H IV 06/09/24 11:00 06/12/24 08:27 DC 06/11/24 22:29 125 MLS/HR Enoxaparin Sodium (Lovenox) 40 mg DAILY SQ 06/08/24 17:00 07/08/24 16:59 06/14/24 08:04 40 MG Famotidine (Pepcid 20mg Vial) 20 mg BID IV 06/08/24 09:00 06/09/24 09:57 DC 06/09/24 08:10 20 MG Famotidine (Pepcid 20mg Vial) 20 mg Q48H IV 06/11/24 10:00 06/12/24 08:27 DC 06/11/24 09:17 20 MG Famotidine (Pepcid 20mg Tab) 20 mg BID PO 06/12/24 09:00 07/12/24 08:59 06/14/24 08:03 20 MG Fentanyl Citrate 100 ml @ 2.5 mls/hr PROTOCOL IV 06/08/24 06:30 06/10/24 14:15 DC 06/10/24 09:20 2.5 MLS/HR Hydralazine HCl (APRESOLine 20MG INJ) 10 mg Q4H PRN IV ADMINISTER FOR SBP > 160 06/10/24 17:30 07/10/24 17:29 06/11/24 06:25 10 MG Insulin Human Regular (humuLIN R 100 UNIT/ML 3ML) INSULIN SLIDING SCAL... Q6H6 SQ 06/08/24 12:00 06/11/24 09:19 DC Lactulose (Constulose 20gm/ 30ml Udcup) 20 gm BID PRN PO CONSTIPATION 06/08/24 08:30 07/08/24 08:29 Levetiracetam (kepPRA 500 MG TABLET) 1,000 mg BID PO 06/12/24 09:00 07/12/24 08:59 06/14/24 08:02 1,000 MG Levetiracetam (kepPRA 500 MG/5 ML SD VIAL) 1,000 mg ONCE IV 06/08/24 06:00 06/08/24 08:35 DC 06/08/24 06:00 1,000 MG Levetiracetam (kepPRA 500 MG/5 ML SD VIAL) 2,000 mg ONCE IV 06/08/24 16:00 06/08/24 15:52 DC Levetiracetam 1000 mg/Sodium Chloride 110 ml @ 400 mls/hr BID IV 06/08/24 21:00 06/12/24 08:13 DC 06/11/24 20:29 400 MLS/HR Levetiracetam 500 mg/Sodium Chloride 100 ml @ 400 mls/hr BID IV 06/08/24 21:00 06/08/24 15:48 DC Levofloxacin (LEvaquIN 750MG TAB) 750 mg DAILY PO 06/12/24 09:00 06/12/24 10:07 DC 06/12/24 09:42 750 MG Lorazepam (AtiVAN) 2 mg Q2H PRN IVP SEIZURE 06/09/24 05:30 06/16/24 05:29 Magnesium Sulfate 50 ml @ 0 mls/hr PROTOCOL IV 06/12/24 05:30 06/14/24 12:19 DC 06/14/24 06:08 12 MLS/HR Magnesium Sulfate 50 ml @ 0 mls/hr PROTOCOL IV 06/14/24 12:30 07/14/24 12:29 Methylprednisolone Sodium Succinate (Solu-medROL 40MG) 40 mg DAILY IVP 06/11/24 09:00 06/12/24 08:27 DC 06/11/24 08:25 40 MG Methylprednisolone Sodium Succinate (Solu-medROL 40MG) 40 mg Q12H IVP 06/09/24 21:30 06/10/24 08:50 DC 06/10/24 08:28 40 MG Methylprednisolone Sodium Succinate (Solu-medROL 40MG) 40 mg Q8H IVP 06/08/24 09:30 06/09/24 10:56 DC 06/09/24 08:10 40 MG Metoclopramide HCl (regLAN 10MG IV) 10 mg Q8H5 IVP 06/10/24 21:00 06/11/24 10:05 DC 06/11/24 05:03 10 MG Metronidazole (flaGYL) 500 mg Q8H PO 06/12/24 08:30 06/22/24 08:29 06/14/24 08:03 500 MG Metronidazole/ Sodium Chloride 100 ml @ 100 mls/hr Q8H6 IVPB 06/09/24 22:00 06/12/24 08:27 DC 06/12/24 05:05 100 MLS/HR Midazolam HCl 100 ml @ 0 mls/hr PROTOCOL IV 06/08/24 12:30 06/10/24 14:15 DC 06/10/24 05:10 10 MLS/HR Ondansetron HCl (zoFRAN 4MG INJ) 4 mg Q6H PRN IV NAUSEA/VOMITING 06/08/24 08:30 07/08/24 08:29 06/13/24 21:30 4 MG Pharmacy Profile Note (Pharmacy Communication) 1 each ONCE MISC 06/08/24 12:30 06/08/24 12:19 DC Piperacillin Sod/ Tazobactam Sod (Zosyn 3.375gm+NS 50ml) 3.375 gm Q12H IV 06/08/24 22:30 06/09/24 14:27 DC 06/09/24 10:13 3.375 GM Polyethylene Glycol (MIRalax 3350 17 GM POWD.PACK) 17 gm DAILY PRN PO CONSTIPATION 06/08/24 08:30 07/08/24 08:29 Potassium Chloride 100 ml @ 100 mls/hr AD PRN IV POTASSIUM PROTOCOL 06/12/24 05:30 07/12/24 05:29 Potassium Chloride (K-Dur/Klor-Con 20meq) 20 meq AD PRN PO POTASSIUM PROTOCOL 06/12/24 05:30 07/12/24 05:29 06/12/24 06:27 20 MEQ Potassium Chloride (KCl 10% Elixir 20meq/15ml) 20 meq AD PRN PO POTASSIUM PROTOCOL 06/12/24 05:30 07/12/24 05:29 Prednisone (deltaSONE/ oraSONE 20MG TAB) 40 mg DAILY PO 06/12/24 11:00 07/12/24 10:59 06/14/24 08:03 40 MG Propofol (DIPRivan 1000MG/ 100ML) 1,000 mg PROTOCOL PRN IV SEDATION 06/08/24 06:30 06/11/24 10:09 DC 06/10/24 08:22 1,000 MG Sodium Bicarbonate 150 meq/Dextrose 1,150 ml @ 75 mls/hr [id number] IVP 06/10/24 09:00 06/11/24 10:05 DC 06/10/24 23:53 75 MLS/HR Sodium Chloride 1,000 ml @ 100 mls/hr Q10H IV 06/09/24 10:00 06/11/24 10:05 DC 06/11/24 02:37 100 MLS/HR Thiamine HCl (Vitamin B-1) 100 mg DAILY IVP 06/10/24 09:00 07/10/24 08:59 06/14/24 08:03 100 MG Ziprasidone (Geodon) 10 mg BID PRN IM agitation 06/10/24 09:00 07/10/24 08:59 DIAGNOSTICS / RADIOLOGY: [ ] ASSESSMENT: Status epilepticus s/p intubation (06/08/24) Acute hypoxic respiratory failure, extubated (06/11 24) Positive JORDANA and anti-SSA/Ro antibodies Elevated troponin with new T-Wave inversions Nephrotic range proteinuria, resolved Glucosuria, resolved Right upper lobe opacity concerning for aspiration pneumonitis versus community acquired pneumonia Pre-renal Acute kidney injury, improving, POA Rhabdomyolysis secondary to seizure, resolved Anion gap metabolic acidosis, resolved Lactic acidosis, lactic acid 3.9, resolved Leukocytosis with left shift, improving Hyperglycemia History of seizures, vaping, former cocaine abuse PLAN: Status epilepticus s/p intubation (06/08/24), extubated (06/11/24) -Continue Keppra 1000 mg b.i.d. -Seizure precautions -PRN ativan for acute seizure -MRI brain with no abnormalities noted -EEG pending, will follow up -neuro consult noted appreciate recommendations Positive JORDANA and anti-SSA/Ro antibodies - ESR and CRP ordered, will follow up - Continue systemic steroids Elevated troponin with new T-Wave inversions - Continue telemetry - Repeat troponin in 6 hours - Cardiology consulted, appreciate recommendations Right upper lobe opacity concerning for aspiration pneumonitis versus community acquired pneumonia High anion gap metabolic acidosis, resolved Leukocytosis with left shift, resolved Possibly secondary to aspiration during the seizure event -Continue cefepime and doxycycline -Cultures are no growth to date Acute renal failure secondary to ATN from sepsis, improving Proteinuria, resolved Glucosuria, resolved Rhabdomyolysis, resolved - NS @ 180 cc/hr - JORDANA, ANCA and IgA panels ordered, will follow up - Monitor urine output - Nephrology consulted, appreciate recommendations Hyperglycemia, resolved - Continue sliding scale insulin - Continue hypoglycemia protocol Vaping Cocaine use disorder Marijuana use disorder - Patient will be counselled on importance of abstinence after extubation - Will explain the increased risk of seizures with continued substance abuse Disposition: Patient to be discharged home today, refer to final summary. KENDY MONROY MD Jun 14, 2024 12:30
--- NOTE | 2024-06-14 14:01 | PN ---
NEPHROLOGY PROGRESS NOTE Date/Time Patient Seen: Jun 14, 2024 SUBJECTIVE: This is a 24-year-old male with a past medical history of seizures, former cocaine abuse, current marijuana use, and vaping. He presented to the emergency room with complaints of seizures. According to family patient has been noncompliant with seizure medications. UDS was positive for marijuana. Chest x-ray on admission showed right upper lobe infiltrate consistent with pneumonia. He has been started on Solu-Medrol for pneumonia. CT of head was normal. Continues on antibiotics He has been extubated and transferred to the medical floor MRI of the brain was normal. He was noted to have elevated BUN/creatinine and hyperkalemia. We have been consulted for renal failure. Renal function continues to improve Electrolytes are stable Renal ultrasound was noted Repeat UA was negative for proteinuria Pending coronary CTA He was seen in the medical floor, in no acute distress REVIEW OF SYSTEMS: GENERAL: Negative for any nausea, vomiting, fevers, chills, or weight loss. NEUROLOGIC: Negative for any blurry vision, blind spots, double vision, facial asymmetry, dysphagia, dysarthria, hemiparesis, hemisensory deficits, vertigo, ataxia. HEENT: Negative for any head trauma, neck trauma, neck stiffness, photophobia, p honophobia, sinusitis, rhinitis. CARDIAC: Negative for any chest pain, dyspnea on exertion, paroxysmal nocturnal dyspnea, peripheral edema. PULMONARY: Negative for any shortness of breath, wheezing, COPD, or TB exposure. GASTROINTESTINAL: Negative for any abdominal pain, nausea, vomiting, bright red blood per rectum, melena. GENITOURINARY: Negative for any dysuria, hematuria, incontinence. INTEGUMENTARY: Negative for any rashes, cuts, insect bites. RHEUMATOLOGIC: Negative for any joint pains, photosensitive rashes, history of vasculitis or kidney problems. HEMATOLOGIC: Negative for any abnormal bruising, frequent infections or bleed ing. PHYSICAL EXAM: GENERAL: Pale, acutely ill female, lethargic, no acute distress. Well-nourished. EYES: EOMI. Anicteric. HENT: Moist mucous membranes. No scleral icterus. No cervical lymphadenopathy. LUNGS: Clear to auscultation bilaterally. No accessory muscle use. CARDIOVASCULAR: Regular rate and rhythm. No murmur. No JVD. ABDOMEN: Soft, non-tender and non-distended. No palpable masses. EXTREMITIES: No edema. Non-tender. SKIN: No rashes or lesions. Warm. NEUROLOGIC: No focal neurological deficits. CN II-XII grossly intact, but not individually tested. PSYCHIATRIC: Cooperative. Appropriate mood and affect. LABORATORY: [ ] Hematology Labs: Test 06/14/24 04:34 Range/Units White Blood Count 11.8 H 4.8-10.8 K/uL Red Blood Count 4.11 L 4.50-6.20 MIL/uL Hemoglobin 12.9 L 14.0-18.0 g/dL Hematocrit 38.2 L 42-54 % Mean Corpuscular Volume 92.9 79-99 fL Mean Corpuscular Hemoglobin 31.4 27.0-33.0 pg Mean Corpuscular Hemoglobin Concent 33.8 32.0-36.0 g/dL Red Cell Distribution Width 11.0 11.0-15.5 % Platelet Count 268 130-400 K/uL Mean Platelet Volume 9.2 7.5-10.5 fL Immature Granulocyte % (Auto) 1.7 H 0-1 % Neutrophils (%) (Auto) 61.5 40.0-77.0 % Lymphocytes (%) (Auto) 22.1 21.0-51.0 % Monocytes (%) (Auto) 11.9 3.0-13.0 % Eosinophils (%) (Auto) 2.5 0.0-8.0 % Basophils (%) (Auto) 0.3 0.0-5.0 % Neutrophils # (Auto) 7.3 1.8-7.7 K/uL Lymphocytes # (Auto) 2.6 1.0-4.8 K/uL Monocytes # (Auto) 1.4 H 0.1-1.0 K/uL Eosinophils # (Auto) 0.30 0.00-0.70 K/uL Basophils # (Auto) 0.04 0.00-0.20 K/uL Absolute Immature Granulocyte (auto 0.20 0-1 K/uL Nucleated Red Blood Cells 0.0 0.0-0.19 % Chemistry Labs: Test 06/14/24 04:34 06/12/24 18:58 Range/Units Sodium Level 143 136-145 mmol/L Potassium Level 3.9 3.5-5.1 mmol/L Chloride Level 105 101-111 mmol/L Carbon Dioxide Level 31 21-32 mmol/L Blood Urea Nitrogen 19 H 7-18 mg/dL Creatinine 1.3 0.5-1.3 mg/dL Glomerular Filtration Rate Calc 79 >90 mL/min Random Glucose 95 70-105 mg/dL Total Calcium 8.7 8.5-10.1 mg/dL Phosphorus Level 4.6 2.5-4.9 mg/dL Magnesium Level 1.60 L 1.80-2.40 mg/dL Troponin I High Sensitivity 315 *H 4-75 ng/L DIAGNOSTICS / RADIOLOGY: REASON: Rule out DVT ORDERING PHYSICIAN: BABAR HASSAN CNP PROCEDURE: VENOUS NANCY - US VENOUS DOPPLER BILATERAL US VENOUS DOPPLER BILATERAL REASON: Rule out DVT COMPARISON: None Technique: Bilateral upper extremity venous doppler ultrasound was performed with spectral analysis and color flow imaging technique. FINDINGS: There is normal appearance of the visualized portions of the right subclavian vein. Axillary, brachial, cephalic veins appear unremarkable. There is some thrombus in the basilic vein at the site of an IVC. Left upper extremity shows similar findings, subclavian, axial, brachial and cephalic veins appear widely patent with no thrombus. There are some thrombus in the left basilic vein in the forearm. This also is identified a site. IMPRESSION: 1. Thrombus in both peripheral basilic veins, at IV site. 2. Otherwise normal bilateral upper extremity venous Doppler ultrasound. DICTATED BY: DEMETRIUS ALICEA MD DATE: 06/11/24 1657 REASON: seizures ORDERING PHYSICIAN: SIDDHARTHA GOMEZ MD PROCEDURE: BRAIN WWO - MR BRAIN WWO CON MR BRAIN WWO CON REASON: seizures COMPARISON: There are no prior MRI scans available for comparison. TECHNIQUE: Routine cerebral imaging protocol was performed. Images are also obtained pre and post gadolinium contrast infusion. CONTRAST: Clariscan 10 cc FINDINGS: There is normal appearing brain parenchyma. There are no focal mass lesions. There are no areas of abnormal contrast enhancement or abnormal signal intensity. Ventricles and sulci appear normal. Posterior fossa and brainstem structures appear unremarkable. There is no evidence of intracranial hemorrhage. Diffusion-weighted images are negative for an acute ischemic process. There are no abnormal fluid collections. Extracranial soft tissues appear normal as well. IMPRESSION: 1. Normal pre and postcontrast MRI of the brain. DICTATED BY: DEMETRIUS ALICEA MD DATE: 06/11/24 1223 REASON: hypoxia ORDERING PHYSICIAN: BABAR HASSAN SALES SPECIALIST PROCEDURE: CXR1VW - CHEST 1VW CHEST 1VW REASON: hypoxia COMPARISON: None. FINDINGS: There are increasing perihilar infiltrates more pronounced on the right than the left. These could represent pneumonia or edema. Lungs are otherwise clear. Heart size is normal. Mediastinum and bony thorax appear unremarkable. ET and NG tubes have been removed. IMPRESSION: 1. Increasing perihilar infiltrates which could be pneumonia or edema. DICTATED BY: DEMETRIUS ALICEA MD DATE: 06/11/24 1046 REASON: evaluate systolic and valve function ORDERING PHYSICIAN: BABAR HASSAN SALES SPECIALIST PROCEDURE: ECHO CMP - ECHO 2-D COMPLETE APPROVED REPORT EXAM: Two-dimensional and M-mode echocardiogram with Doppler and color Doppler. INDICATION ICD: Assess LV Function 2D Dimensions RVDd 5.0 cm LVEF(%) 66.4 (>50%) LVED Vol(simp.) 173.0 mL IVSd 1.1 (0.7-1.1cm) FS(%) 37 % LVES Vol(simp.) 61.8 mL LVDd 5.4 (3.8-5.6cm) LA (2D) 3.6 (1.6-4.0cm) LVEF(%, simp.) 64 % PWd 1.2 (0.7-1.1cm) Ao Root(2D) 3.3 (2.0-3.7cm) LA ESV INDEX (4CH) 32.10 mL/m2 IVSs 1.3 cm LVOT diam 2.3 (1.8-2.4cm) LA ESV INDEX (2CH) 32.10 mL/m2 LVDs 3.4 (2.5-4.0cm) LA ESV INDEX (BP) 32.90 mL/m2 PWs 1.7 cm M-Mode Dimensions EPSS 1.5 cm LA (MM) 3.7 (1.6-4.0cm) Ao Root(MM) 3.1 (2.0-3.7cm) Aortic Valve AoV VTI 0.4 m Ao Mean GR 10.0 mmHg LVOT VTI 0.28 m LUCERO (VMAX) 3.2 cm2 LUCERO (VTI) 3.2 cm2 Mitral Valve MV E Vmax 111.6 cm/s DECEL Time 187 ms MV A Vmax 73.2 cm/s P 1/2 T 57 ms E/A ratio 1.5 MVA (PHT) 3.9 cm2 TDI E/E' Medial 11.7 E/E' Lateral 10.9 Medial E' Peak V 9.50 cm/s Lateral E' Peak V 10.20 cm/s Left Ventricle The left ventricle structure and function is normal. There is normal LV segmental wall motion. Mild concentric LVH. LVEF is 60-65%. The left ventricular diastolic function is normal. Right Ventricle The right ventricle is moderately dilated with an RVIDd of 5.0 cm. The right ventricular systolic function is normal. Atria The left atrium size is normal. The right atrium is moderately dilated. Aortic Valve The aortic valve is normal in structure and function. No aortic regurgitation is present. There is no aortic valvular stenosis. Mitral Valve The mitral valve is normal in structure and function. There is no mitral valve regurgitation noted. There is no mitral valve stenosis. Tricuspid Valve The tricuspid valve is normal in structure and function. There is no tricuspid valve regurgitation noted. Pulmonic Valve The pulmonary valve is normal in structure and function. There is no pulmonic valvular regurgitation. Great Vessels The aortic root is normal in size. The IVC is normal in size and collapses >50% with inspiration. Pericardium No pericardial effusion. Conclusion Mild concentric LVH. LVEF is 60-65%. There is normal LV segmental wall motion. The left ventricular diastolic function is normal. The right ventricle is moderately dilated with an RVIDd of 5.0 cm. The aortic valve is normal in structure and function. There is no mitral valve regurgitation noted. No pericardial effusion. DICTATED BY: CAPRI PINTO MD DATE: 06/10/24 0904 REASON: REVERIFICATION OF ET TUBE PLACEMENT. ORDERING PHYSICIAN: BABAR HASSAN CNP PROCEDURE: CXR1VW - CHEST 1VW PORTABLE CHEST RADIOGRAPH INDICATION: REVERIFICATION OF ET TUBE PLACEMENT. COMPARISON: 06/10/2024 at 7:49 AM FINDINGS: Tip of endotracheal tube located 5.4 cm above the kalie. Tip of NG tube within the stomach. Heart size is normal. The pulmonary vascularity and hollis appear normal. No evidence for consolidation. Suspect small layering right greater than left pleural effusions. No pneumothorax detected. IMPRESSION: Tip of NG tube located 5.4 cm above the kalie. Suspect small layering right greater than left pleural effusions. DICTATED BY: LIVIER BA MD DATE: 06/10/24903 REASON: et tube placement verification ORDERING PHYSICIAN: ONEYDA DALEY MD PROCEDURE: CXR1VW - CHEST 1VW FRONTAL CHEST RADIOGRAPH INDICATION: et tube placement verification COMPARISON: 06/02/2024 at 4:34 AM FINDINGS/IMPRESSION: gambling monitor leads overlie the field of view. Tip of endotracheal tube located 5.5 cm above the kalie. 2 cm advancement would be ideal. Remainder of the study is unchanged. DICTATED BY: LIVIER BA MD DATE: 06/10/24908 REASON: intubated ORDERING PHYSICIAN: BABAR HASSAN CNP PROCEDURE: CXR1VW - CHEST 1VW PORTABLE CHEST RADIOGRAPH INDICATION: intubated COMPARISON: 06/09/2024 FINDINGS/IMPRESSION: gambling monitor leads overlie the field of view. Stable endotracheal and nasogastric tubes, including tip of endotracheal tube located 5.6 cm above the kalie. Stable heart size and favorable decrease in right lung airspace disease, without pneumothorax. DICTATED BY: LIVIER BA MD DATE: 06/10/24948 REASON: Decreased renal function ORDERING PHYSICIAN: FRANSISCO ALVARADO PROCEDURE: RENAL - US RENAL SONOGRAM Exam: Renal and bladder sonogram Reason: Renal failure. FINDINGS: Right kidney is 12.4 x 7.2 x 7.1 cm, left 11.0 x 6.2 x 7.0 cm. There is no mass, stone or hydronephrosis. Cortical thickness is preserved however there is increased echogenicity consistent with a component of chronic renal disease. There is a Dykes catheter in a nondistended urinary bladder. IMPRESSION: 1. Echogenic kidneys consistent with chronic renal disease, size and cortical thickness well preserved. DICTATED BY: DEMETRIUS ALICEA MD DATE: 06/09/241651 REASON: Hypoxia, intubated ORDERING PHYSICIAN: BABAR HASSAN CNP PROCEDURE: CXR1VW - CHEST 1VW CHEST 1VW REASON: Hypoxia, intubated COMPARISON: 06/08/2024 FINDINGS: Right upper lobe infiltrate persists, there is now patchy infiltrate in the right lower lobe as well. Left lung appears clear. Heart size is normal. ET and NG tubes remain in place. IMPRESSION: 1. Increasing infiltrate in the right lung. 2. ET and NG tubes in good position. DICTATED BY: DEMETRIUS ALICEA MD DATE: 06/09/24 1012 REASON: Seizure ORDERING PHYSICIAN: DALJIT MCDONNELL MD PROCEDURE: HEAD WO - CT HEAD/BRAIN W/O CONTRAST Exam: NONCONTRAST CT BRAIN REASON: Seizure . COMPARISON: None. TECHNIQUE: Images are obtained from vertex to the skull base. The exam was performed without IV contrast. FINDINGS: There is normal appearing brain parenchyma. There are no focal mass lesions. There is is no evidence of intracranial hemorrhage or acute stroke. Ventricles and sulci appear normal. Posterior fossa and brainstem structures are unremarkable. Paranasal sinuses and remaining extracranial soft tissues appear normal as well. IMPRESSION: 1. Normal noncontrast CT brain. CT was performed with one or more following dose reduction techniques: automated exposure control, adjustment of the mA and kv according to patient's size, or use of a iterative reconstruction technique. DICTATED BY: DEMETRIUS ALICEA MD DATE: 06/08/24 0819 REASON: S/P INTUBATION ORDERING PHYSICIAN: DALJIT MCDONNELL MD PROCEDURE: CXR1VW - CHEST 1VW CHEST 1VW REASON: S/P INTUBATION COMPARISON: None. FINDINGS: There is a right upper lobe infiltrate consistent with pneumonia. Lungs are otherwise clear. Heart size is normal with no vascular congestion. There is an ET tube with tip in good position at midclavicular point, 4 cm above the kalie. There is an NG tube in the stomach. IMPRESSION: 1. Right upper lobe infiltrate consistent with pneumonia. 2. ET and NG tubes in good position. DICTATED BY: DEMETRIUS ALICEA MD DATE: 06/08/24 0844 ASSESSMENT: Hyperkalemia Acute renal failure Postictal Acute metabolic encephalopathy Acute hypoxic respiratory failure Intubated in ED on 06/08 given lethargy to save airway Bilateral upper lobe opacity concerning for aspiration pneumonitis versus community acquired pneumonia Sepsis without septic shock High anion gap metabolic acidosis- resolved Leukocytosis with left shift Hyperglycemia History of seizures, vaping, former cocaine abuse PLAN: Labs, diagnostic, radiologic exams reviewed and interpreted by myself and supervising physician. We have reviewed external records in detail There is no need for renal replacement therapy Pending CTA as per cardiology recommendations We will continue to monitor intake and output. Replace electrolytes as needed. Please renally adjust medications Require close monitoring of renal function and electrolytes Order CBC, CMP, uric acid, and electrolytes in am Continue with renally dosed antibiotics Monitor blood pressure adjust medication doses as needed Avoid hypotensive episodes May use Dilaudid 0.5 mg IV every 6 hours as needed for severe pain Monitor blood sugars Strict intake, output, and daily weight should be monitored Please renally adjust medications Avoid nephrotoxic and nonsteroidal drugs Avoid contrast if possible Will continue to monitor renal function, anemia, electrolytes Treatment plan discussed with patient Questions were answered We have discussed with the other team physicians in detail about the care plan We will continue to monitor the patient closely ATTESTATION BY PHYSICIAN I have seen and examined the patient. I reviewed the documentation, medical decision making, and treatment plan as noted by the mid-level provider above. I agree with the findings and plan of care. ASHWINI BANDA MD, [facility] Jun 14, 2024 14:01
[2024-06-14] MEDS ORDERED: LEVE-43 PO (14:47)
[2024-06-14] MEDS ORDERED: CEFD300C3 PO (14:50)
[2024-06-14] MEDS ORDERED: ASPI-1443 PO (14:50)
[2024-06-14] MEDS ORDERED: AMLO2.5T4 PO (14:50)
[2024-06-14] MEDS ORDERED: AZIT500T4 PO (14:50)
--- NOTE | 2024-06-14 15:23 | NUR ---
PATIENT ALERT AND ORIENTED X4, WITH SIGNIFICANT OTHER AT BEDSIDE, BEING DISCHARGED HOME. PATIENT EDUCATED TO ESTABLISH HIM SELF A PCP, FROM PCP HE WILL NEED REFERRAL WITH DRAWING OPERATOR AND NEUROLOGIST. PATIENT EDUCATED TO FOLLOW UP WITH CARDIOLOGY AND NEUROLOGY PER SCHEDULED LAMINE. MIDLINE AVI REMOVED WITHOUT COMPLICATIONS, VALSALVA MANEUVER, PRESSURE AND OCCLUSIVE DRESSING APPLIED. EDUCATED TO BELTING CUTTER PRESCRIPTION FROM PHARMACY, MEDICATION EXPLAINED, INCLUDING SIDE EFFECTS. PATIENT HIGHLY ENCOURAGED TO STAY AWAY FROM MULTI SUBSTANCE USE. ALL QUESTIONS ANSWERED, PATEITN AND SIGNIFICANT OTHER VERBALIZED UNDERSTANDING.
--- NOTE | 2024-06-14 16:01 | DS ---
Discharge Summary Hospital Course Summary: The patient initially admitted to the hospital 06/08/2024 with the following history of the present illness: 23-year-old male with past medical history of seizures, former cocaine abuse, current marijuana use, and vaping who came to the hospital with complaint of seizures. According to the , patient had 1st seizure in 2020 and next was in 2022, after that he had seizures for every 3 months and was noncompliant with the medications and says he feels medications aggravate seizures. Seizures started at 1 AM. He then went back to sleep and he had two more episodes of seizures. After the last episode, he became somewhat confused. In ED patient had seizures and was intubated to protect his airway,started on propofol and fentanyl. He was given1 g of Keppra and lorazepam. Pertinent findings include WBC of 38, neutrophils of 84%. Bicarb was 12 and gap was 24. Creatinine is 1.4 glucose 180. Some more laboratory studies were sent. Chest x ray with right upper lobe opacity. CT head with no acute intracranial abnormalities. Toxicology screen positive for marijuana. Admitted to the ICU, critical care consultation requested, eventually successfully extubated, downgraded to PCU. CT head normal noncontrast exam. Echocardiogram done, reported as follows: Mild concentric LVH. LVEF is 60-65%. There is normal LV segmental wall motion. The left ventricular diastolic function is normal. The right ventricle is moderately dilated with an RVIDd of 5.0 cm. The aortic valve is normal in structure and function. There is no mitral valve regurgitation noted. No pericardial effusion. During the course of the hospitalization, patient also evaluated by dairy cattle farmer, secondary to elevated troponin, elevated troponin so to be type 2 WA (demand ischemia) induced by the recurrent breakthrough seizure. Today the patient is alert oriented x3, hemodynamically stable, no chest pain, no shortness a breath, no nausea, no vomiting, no abdominal discomfort, troponin trending down. Plan is for the patient to be discharged home today. Editor City(s): Cardiology, critical Care and neurologist Assessment/Plan: Final diagnosis Status epilepticus s/p intubation (06/08/24) Acute hypoxic respiratory failure, extubated (06/11 24) Positive JORDANA and anti-SSA/Ro antibodies Elevated troponin with new T-Wave inversions Nephrotic range proteinuria, resolved Glucosuria, resolved Right upper lobe opacity concerning for aspiration pneumonitis versus community acquired pneumonia Pre-renal Acute kidney injury, improving, POA Rhabdomyolysis secondary to seizure, resolved Anion gap metabolic acidosis, resolved Lactic acidosis, lactic acid 3.9, resolved Leukocytosis with left shift, improving Hyperglycemia History of seizures, vaping, former cocaine abuse PLAN: Status epilepticus s/p intubation (06/08/24), extubated (06/11/24) -Continue Keppra 1000 mg b.i.d. -Seizure precautions -PRN ativan for acute seizure -MRI brain with no abnormalities noted -EEG pending, will follow up -neuro consult noted appreciate recommendations Positive JORDANA and anti-SSA/Ro antibodies - ESR and CRP ordered, will follow up - Continue systemic steroids Elevated troponin with new T-Wave inversions - Continue telemetry - Repeat troponin in 6 hours - Cardiology consulted, appreciate recommendations Discharge Instructions: The patient was instructed to follow with his PCP as an outpatient, to be compliant with medication, to abstain from marijuana use. He was instructed to follow up with neurologist as an outpatient, as well as to discuss the finding of antinuclear antibody positive as well as SAS-a/RO antibody mildly elevated at 3.2 with a his PCP so he can get a referral to see a system software programmer as an outpatient. He was advised to return to the hospital if his condition changes. Patient agreed with plan and understood the information provided. Home Medications: Active Scripts Cefdinir (Cefdinir) 300 Mg Capsule, 1 CAP PO BID for 5 Days, #10 CAP 0 Refills Prov:KENDY MONROY MD 06/14/24 Azithromycin (Azithromycin) 500 Mg Tablet, 1 TAB PO DAILY for 5 Days, #5 TAB 0 Refills Prov:KENDY MONROY MD 06/14/24 Aspirin (Aspirin EC) 81 Mg Tablet.dr, 1 TAB PO DAILY for 30 Days, #30 TAB 1 Refill Prov:KENDY MONROY MD 06/14/24 Amlodipine Besylate (Amlodipine Besylate) 2.5 Mg Tablet, 1 TAB PO DAILY for 30 Days, #30 TAB 1 Refill Prov:KENDY MONROY MD 06/14/24 Levetiracetam (Keppra) 500 Mg Tablet, 1000 MG PO BID for 30 Days, #60 TAB 1 Refill Prov:KENDY MONROY MD 06/14/24 Discontinued Reported Medications Levetiracetam (Levetiracetam) 500 Mg Tab.er.24h, 1 TAB PO BID for 30 Days, #60 TAB 0 Refills 06/08/24 Time spent arranging discharge: 31-60 minutes KENDY MONROY MD Jun 14, 2024 16:01
[2024-06-15 15:13] LABS: ATYPICAL P-ANCA AB <1:20 titer (Neg:<1:20); CYTOPLASMIC (C-ANCA) AB, IGG <1:20 titer (Neg:<1:20)
== END 2024-06-14 15:45 | disposition home or self-care (01) | DRG 720 ==
LOC: EDH 05:27 → EDHIP 05:28 → 2BH 10:15 → EDHIP 10:21 → 2BH 11:10 → 2AH 06-11 16:20
PROVIDERS: ADMIT Internal Medicine; ATTEND Internal Medicine
PROC: 5A1945Z Respiratory Ventilation, 24-96 Consecutive Hours (ICD-10-PCS; principal; 2024-06-08)
PROC: 0BH17EZ Insertion of Endotracheal Airway into Trachea, Via Natural or Artificial Opening (ICD-10-PCS; 2024-06-08)
PROC: 0BP1XDZ Removal of Intraluminal Device from Trachea, External Approach (ICD-10-PCS; 2024-06-11)
DX: A41.9 Sepsis, unspecified organism (principal); J96.01 Acute respiratory failure with hypoxia; N17.0 Acute kidney failure with tubular necrosis; J69.0 Pneumonitis due to inhalation of food and vomit; G93.41 Metabolic encephalopathy; E87.20 Acidosis, unspecified; I21.A1 Myocardial infarction type 2; G40.901 Epilepsy, unspecified, not intractable, with status epilepticus; J18.9 Pneumonia, unspecified organism; N39.0 Urinary tract infection, site not specified; R65.20 Severe sepsis without septic shock; M62.82 Rhabdomyolysis; F12.10 Cannabis abuse, uncomplicated; E87.5 Hyperkalemia; F14.10 Cocaine abuse, uncomplicated; I80.8 Phlebitis and thrombophlebitis of other sites; R76.8 Other specified abnormal immunological findings in serum; N18.9 Chronic kidney disease, unspecified; E86.0 Dehydration; R73.9 Hyperglycemia, unspecified; R80.9 Proteinuria, unspecified; R81 Glycosuria; Z91.199 Patient's noncompliance with other medical treatment and regimen due to unspecified reason; Z91.128 Patient's intentional underdosing of medication regimen for other reason; Z91.148 Patient's other noncompliance with medication regimen for other reason; Z79.899 Other long term (current) drug therapy
CPT/HCPCS: 31500; 36415; 36556; 36600; 70450; 70553; 71045; 76770; 80048; 80051; 80053; 80305; 81001; 82010; 82435; 82550; 82570; 82784; 82803; 82947; 82948; 83036; 83605; 83735; 83935; 84100; 84132; 84145; 84295; 84484; 84550; 85018; 85025; 85610; 85651; 85730; 86038; 86140; 86160; 86215; 86235; 86255; 86701; 87040; 87071; 87205; 87390; 87635; 87641; 87804; 93005; 93306; 93970; 94002; 94003; 94150; 94640; 96375; 99291; C1894; G0378; J0360; J0692; J1630; J1650; J1953; J2060; J2405; J2543; J2550; J2704; J2765; J2919; J3010; J3411; J3475; J3486; J3490; J7070; J7120; A9575; A9900; C1750

== ENCOUNTER → 2024-07-26 | Outpatient (CLI) | payer MEDICAID ==
[~2024-07-26] MED LIST: AMLO2.5T4 PO; ASPI-1443 PO; AZIT500T4 PO; CEFD300C3 PO; IOHEXOL 350 MG/ML 100ML INFUS..BTL IV ONE; LEVE-43 PO
--- NOTE | 2024-07-26 14:44 | HMCIMG ---
CT CARDIAC ANGIO W/CONT. CCTA HISTORY: Heart palpitations COMPARISON: None TECHNIQUE: Multiple sequential axial images of the chest were obtained along with the CT angiogram of the chest study. Patient was given 100 cc of Omnipaque through intravenous route. FINDINGS: There is no evidence of pulmonary nodule or parenchymal disease. No pleural effusion or pericardial effusion is seen. There is no evidence of pneumothorax. There are normal size mediastinal and hilar lymph nodes. The heart is not enlarged. Degenerative changes of the thoracolumbar spine are present. IMPRESSION: 1. No evidence of pulmonary nodule or effusion is seen. Please see CT angiogram report of coronary arteries.
== END | disposition home or self-care (01) ==
LOC: RAH 11:25
PROVIDERS: ATTEND Internal Medicine
DX: R77.8 Other specified abnormalities of plasma proteins (principal); M47.815 Spondylosis without myelopathy or radiculopathy, thoracolumbar region
CPT/HCPCS: 75574; Q9967

== ENCOUNTER 2025-04-07 17:21 | Emergency (ER) | payer MEDICAID ==
[~2025-04-07] VITALS: Ht 185.4 cm; Wt 127.0 kg
[~2025-04-07 17:21] MED LIST changes: -IOHEXOL 350 MG/ML 100ML INFUS..BTL IV ONE
[2025-04-07 17:43] LABS: IMMATURE GRANULOCYTE ABSOLUTE 0.11 K/uL (0-1); NUCLEATED RED BLOOD CELLS 0.0 % (0.0-0.19); PLATELET COUNT (AUTO) 374 K/uL (130-400); RED BLOOD CELL COUNT(AUTO) 5.21 MIL/uL (4.50-6.20); RED CELL DISTRIBUTION WIDTH 11.1 % (11.0-15.5); WHITE BLOOD COUNT (AUTO) 19.9 K/uL (4.8-10.8)
[2025-04-07 17:50] LABS: CREATININE 1.2 mg/dL (0.5-1.3); GLOMERULAR FILTR. RATE CALC 87.0 mL/min (>90); GLUCOSE,RANDOM 168.0 mg/dL (70-105); SODIUM SERUM 135.0 mmol/L (136-145); UREA NITROGEN, BLOOD 14.0 mg/dL (7-18)
[2025-04-07] MEDS: 0.9%NACL 1000ML 1,000 ML IV ONE (17:52)
[2025-04-07 17:55] LABS: CREATINE KINASE, TOTAL 155.0 U/L (21-232)
[2025-04-07] MEDS: leveTIRACEtam 500 MG/5 ML SD V 1,500 MG in 0.9%NACL 100ML 100 ML IV SCH (17:56)
--- NOTE | 2025-04-07 18:13 | ERN ---
General Chief Complaint: Seizure Stated Complaint: SEIZURE Time Seen by MD: 17:26 Time Seen by Midlevel: 17:26 Source: patient History of Present Illness Initial Comments 24-year-old male with a past medical history of seizures presenting to the ER via EMS for evaluation following multiple seizures at home. The patient reports taking 1000 mg of Keppra twice a day. He has had three seizures today that were witnessed. No injury or any other symptoms reported at this time. Patient does report missing his morning dose today. On arrival he reports feeling improved. He has no complaints Allergies: Coded Allergies: No Known Allergies (Unverified Allergy, Unknown, 06/08/24) Home Meds Active Scripts Cefdinir (Cefdinir) 300 Mg Capsule, 1 CAP PO BID for 5 Days, #10 CAP 0 Refills Prov:KENDY MONROY MD 06/14/24 Azithromycin (Azithromycin) 500 Mg Tablet, 1 TAB PO DAILY for 5 Days, #5 TAB 0 Refills Prov:KENDY MONROY MD 06/14/24 Aspirin (Aspirin EC) 81 Mg Tablet.dr, 1 TAB PO DAILY for 30 Days, #30 TAB 1 Refill Prov:KENDY MONROY MD 06/14/24 Amlodipine Besylate (Amlodipine Besylate) 2.5 Mg Tablet, 1 TAB PO DAILY for 30 Days, #30 TAB 1 Refill Prov:KENDY MONROY MD 06/14/24 Levetiracetam (Keppra) 500 Mg Tablet, 1000 MG PO BID for 30 Days, #60 TAB 1 Refill Prov:KENDY MONROY MD 06/14/24 Past Medical History Past Medical History: Other Medical History Other: SEIZURES Past Surgical History: Other Surgical History Other: LEFT CHEST TUMOR REMOVAL. ROS Dictation CONSTITUTIONAL: Negative except for HPI HEAD/FACE: Negative except for HPI EENT: Negative except for HPI RESPIRATORY: Negative except for HPI GASTROINTESTINAL/ABDOMINAL: Negative except for HPI GENITOURINARY: Negative except for HPI MUSCULOSKELETAL: Negative except for HPI INTEGUMENTARY: Negative except for HPI NEUROLOGICAL/PSYCH: Negative except for HPI HEMATOLOGIC/LYMPHATIC: Negative except for HPI All Systems Negative, Except as noted above. 13 point review of systems assessed and all negative except for above. Physical Exam Physical Exam Dictation Vital Signs reviewed General Appearance: Alert, oriented x 3, no acute distress, well developed, nourished. Head and Face: non-traumatic. Eyes: PERRL, pink conjunctivas, eyelid no trauma, anterior chamber with arcus senilis. Ears: Pinnas intact and no signs of trauma or erythema ear canals clear and no discharge TM no erythema Nose: No discharge, no bleeding. Oropharynx: Mouth normal, tongue pink, pharynx clear,no erythema, tonsils no exudates, no abscesses noted, mucous membrane moist Neck: Supple, non-tender, no thyromegaly, no masses, no JVD, no bruits Breast:Deferred Chest:No tenderness, no crepitus, no paradoxical movement, no retractions Lungs:Clear, well-ventilated, symmetric, no rales, no wheezing, no rhonchi, no stridor, good breath sounds bilaterally Heart: Regular rate, regular rhythm, no murmur, no gallops Vascular: no peripheral edema, Abdomen: Soft, positive bowel sounds, nondistended, no guarding, nontender, no rebound, no masses no hepatomegaly, no splenomegaly, no Herrera's sign, no hernias. Rectal: Deferred Genital: Deferred Neurological: Normal speech, motor function intact, sensory function intact Musculoskeletal: Neck nontender, full range of motion, back nontender, full range of motion, Extremities: nontender, full range of motion Skin: Color pink, dry, no turgor, no rash, no lacerations, no abrasions, no contusions. Lymphatic: Deferred Results Laboratory and Microbiology Lab and Micro Result Laboratory Tests Test 04/07/25 17:37 04/07/25 18:35 White Blood Count 19.9 K/uL (4.8-10.8) H Red Blood Count 5.21 MIL/uL (4.50-6.20) Hemoglobin 16.3 g/dL (14.0-18.0) Hematocrit 46.8 % (42-54) Mean Corpuscular Volume 89.8 fL (79-99) Mean Corpuscular Hemoglobin 31.3 pg (27.0-33.0) Mean Corpuscular Hemoglobin Concent 34.8 g/dL (32.0-36.0) Red Cell Distribution Width 11.1 % (11.0-15.5) Platelet Count 374 K/uL (130-400) Mean Platelet Volume 8.9 fL (7.5-10.5) Immature Granulocyte % (Auto) 0.6 % (0-1) Neutrophils (%) (Auto) 94.5 % (40.0-77.0) H Lymphocytes (%) (Auto) 2.4 % (21.0-51.0) L Monocytes (%) (Auto) 2.3 % (3.0-13.0) L Eosinophils (%) (Auto) 0.0 % (0.0-8.0) Basophils (%) (Auto) 0.2 % (0.0-5.0) Neutrophils # (Auto) 18.8 K/uL (1.8-7.7) H Lymphocytes # (Auto) 0.5 K/uL (1.0-4.8) L Monocytes # (Auto) 0.5 K/uL (0.1-1.0) Eosinophils # (Auto) 0.00 K/uL (0.00-0.70) Basophils # (Auto) 0.03 K/uL (0.00-0.20) Absolute Immature Granulocyte (auto 0.11 K/uL (0-1) Nucleated Red Blood Cells 0.0 % (0.0-0.19) White Cell Morphology Comment See comments Sodium Level 135 mmol/L (136-145) L Potassium Level 4.1 mmol/L (3.5-5.1) Chloride Level 98 mmol/L (101-111) L Carbon Dioxide Level 26 mmol/L (21-32) Blood Urea Nitrogen 14 mg/dL (7-18) Creatinine 1.2 mg/dL (0.5-1.3) Glomerular Filtration Rate Calc 87 mL/min (>90) Random Glucose 168 mg/dL (70-105) H Total Calcium 9.3 mg/dL (8.5-10.1) Magnesium Level 2.20 mg/dL (1.80-2.40) Total Creatine Kinase 155 U/L (21-232) Urine Color LIGHT-YELLOW (YELLOW) Urine Appearance TURBID (CLEAR) Urine pH 5.5 (5.0-8.0) Urine Specific Gary 1.021 (1.001-1.031) Urine Protein 50 mg/dL (NEGATIVE) H Urine Glucose (UA) NEGATIVE mg/dL (NEGATIVE) Urine Ketones 5 mg/dL (NEGATIVE) H Urine Occult Blood +- (TRACE) (NEGATIVE) H Urine Nitrate NEGATIVE (NEGATIVE) Urine Bilirubin NEGATIVE mg/dL (NEGATIVE) Urine Urobilinogen 0.2 mg/dL (0.2-1.0) Urine Leukocyte Esterase NEGATIVE Jarad/uL Urine RBC None /HPF (0-1) Urine WBC 6-10 /HPF (0-1) H Urine Squamous Epithelial Cells RARE /HPF (0-2) Urine Other Crystals (Auto) 26 /HPF (None Seen) Urine Amorphous Crystals (Auto) FEW /LPF (None Seen) Urine Bacteria RARE /HPF (None Seen) Labs Reviewed?: Yes MDM MDM: The patient is a 24-year-old male with a history of epilepsy on Keppra 1000 mg b.i.d. who presented after three witnessed generalized seizures at home. He admits to missing his morning dose of Keppra. On arrival patient was back to his baseline and is able to answer all questions appropriately. Differential includes medication noncompliance, breakthrough seizure, metabolic abnormalities, infection, intracranial pathology. Workup included CBC, basic metabolic panel, magnesium, urinalysis. Labs notably [place] [address] likely postictal leukocytosis. No evidence of infection clinically. Electrolytes and magnesium were within normal limits. CT head was normal. NIH stroke scale of 0. Physical examination is unremarkable and no meningeal signs. Patient received a loading dose of IV Keppra in the ED he was observed for over 2 hours and remained seizure-free and return to baseline mental status. Vitals remained stable afebrile and he is nontoxic appearing. No infectious source identified. Given stability normal neurological examination and family report that patient is back to his baseline he is appropriate for outpatient management with close Neurology follow up. Strict return precautions provided Differential diagnosis: There are no social concerns with this patient. Prescription drug management Prescriptions will include: None Medical management and examination interpretation discussions were had by me with other qualified healthcare professionals as indicated for the patient's care. ED Course Orders Procedure Category Date Status Time 12 Lead Ekg Tracing- EKG 04/07/25 Complete Technical 17:28 Cbc With Differential LAB 04/07/25 Complete 17:28 Basic Metabolic Panel LAB 04/07/25 Complete 17:28 Magnesium LAB 04/07/25 Complete 17:28 Ct Head/Brain W/O CT 04/07/25 Resulted Contrast 17:28 0.9%Nacl 1000ml (Ns PHA 9/25/25 Complete 1000ml) 17:30 Levetiracetam 500 PHA 04/07/25 Complete Mg/5 Ml Sd V (Keppra 5 22:00 Urinalysis Profile LAB 04/07/25 Complete 17:28 Creatine Kinase, Total LAB 04/07/25 Complete 17:28 Levetiracetam 500 PHA 04/07/25 In Process Mg/5 Ml Sd V (Keppra 5 18:00 Culture Urine MASON 04/07/25 In Process 18:49 Current Medications Medications (Trade) Dose Ordered Sig/Samantha Route PRN Reason Start Time Stop Time Status Last Admin Dose Admin Levetiracetam 1500 mg/Sodium Chloride 100 ml @ 400 mls/hr Q8H IV 04/07/25 18:00 05/07/25 17:59 04/07/25 17:56 Levetiracetam 1500 mg/Sodium Chloride 100 ml @ 400 mls/hr Q8H6 IV 04/07/25 22:00 04/07/25 17:43 DC Sodium Chloride 1,000 ml @ 0 mls/hr ONCE ONCE IV 04/07/25 17:30 04/07/25 17:33 DC 04/07/25 17:52 Vital Signs Date Time Temp Pulse Resp B/P (MAP) Pulse Ox O2 Delivery O2 Flow Rate FiO2 04/07/25 18:46 99.0 78 20 138/83 99 Room Air* 0 21 04/07/25 17:41 98.2 81 20 134/69 99 Room Air* 0 21 04/07/25 17:23 97.9 88 18 147/92 98 Room Air 0 DX & DISP Disposition: Discharge Departure Impression: Primary Impression: Seizure disorder Additional Impressions: Medication dose missed, Leukocytosis Condition: Stable Additional Instructions: Resume Keppra 1000 mg twice daily as prescribed. Do not miss doses. Rest, maintain hydration, and avoid alcohol or recreational substances. Monitor for fever, new headaches, persistent vomiting, confusion, weakness, numbness, or recurrent seizures. Return to the ER if you develop any new or worsening symptoms. Follow up with your primary care doctor and neurologist within the next 1-2 days. Referrals: SELF,REFERRAL (PCP) I have reviewed the case, and I agree with, Diagnosis and Plan I performed the substantive portion of the visit. I have reviewed and personally made and approve the management plan that is documented in the note by myself or the LAMINE. I acknowledge for responsibility for the patient's managem ent plan. ANJEL OWEN Apr 07, 2025 18:13
[2025-04-07 18:40] LABS: APPEARANCE,URINE TURBID (CLEAR); GLUCOSE, URINE (UA) NEGATIVE (NEGATIVE); LEUKOCYTE ESTERASE ,URINE NEGATIVE Leu/uL (NEGATIVE); NITRATE,URINE NEGATIVE (NEGATIVE); OCCULT BLOOD,URINE +- (TRACE) (NEGATIVE)
--- NOTE | 2025-04-07 18:41 | EKG ---
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
[2025-04-07 18:42] LABS: ADD UA MICROSCOPIC YES
[2025-04-07 18:48] LABS: SQUAMOUS EPITHELIAL CELL,UR RARE /HPF (0-2); UNCLASSIFIED CRYSTAL 26 /HPF (None Seen)
--- NOTE | 2025-04-07 19:38 | HMCIMG ---
EXAM: CT Head Without IV contrast. CLINICAL HISTORY: seizure TECHNIQUE: Axial computed tomography images of the head/brain without intravenous contrast. COMPARISON: CT HEAD/BRAIN W/O CONTRAST - 06/08/24 FINDINGS: BRAIN: No evidence of acute hemorrhage. No mass lesion. No CT evidence for acute territorial infarct. No midline shift or extra-axial collections. VENTRICLES: No hydrocephalus. ORBITS: The orbits are unremarkable. SINUSES AND MASTOIDS: Mild mucosal thickening in the left maxillary sinus. Mastoid air cells are clear. BONES: No fracture. SOFT TISSUES: Unremarkable. IMPRESSION: 1. No acute intracranial findings. /Davis
[2025-04-07 20:27] VITALS: BP 130/86; PULSE 72; RESP 18; TEMP 98.7; O2SAT 96
[2025-04-07] MEDS ORDERED: leveTIRACEtam 500 MG/5 ML SD V 1,500 MG in 0.9%NACL 100ML 100 ML IV SCH (22:00)
== END 2025-04-07 20:40 | disposition home or self-care (01) ==
LOC: EDH 17:21
DX: G40.909 Epilepsy, unspecified, not intractable, without status epilepticus (principal); D72.829 Elevated white blood cell count, unspecified; Z79.82 Long term (current) use of aspirin; Z79.899 Other long term (current) drug therapy
CPT/HCPCS: 99285; 96365; 70450; 82550; 83735; 80048; 85025; 87086; 81001; 36415; 93005; J1953; J7030